=== PATIENT | female | born 1955 | race Caucasian/White ===

== ENCOUNTER 2016-11-12 16:38 | Inpatient (IN) | payer MEDICAID ==
[~2016-11-12] VITALS: Ht 154.9 cm; Wt 81.4 kg
[~2016-11-12 16:38] MED LIST: ABILIFY10 MG PO; ABILIFY15 MG PO; ABILIFY5 MG PO; AMBIEN5 MG PO; AMMONIUM LACTA237 ML TP; ARTHRITIS PAI42.5 GM TP; ASPIRIN81 M1 PO; ATIVAN1 MG PO; AUGMENTIN 875875 MG PO; BACTRIM DS 8001 TA1 PO; BENADRYL25 M1 PO; BUMETANIDE2 MG PO; CARAFATE1 G1 PO; CHANTIX1 MG PO; CHOLESTYRAM4 GM/9 GM PO; CHOLESTYRAMINE PO; CIPRO250 MG PO; CIPRO500 MG PO; CIPROFLOXACIN500 MG PO; CITALOPRAM40 MG PO; CLINDAMYCIN HC300 MG PO; COREG25 MG PO; D-1000 185 MG-11 TAB PO; DIFLUCAN150 MG PO; DOXYCYCLINE100 MG PO; E-400400 IU PO; ELAVIL100 MG PO; GABAPENTIN600 MG; GABAPENTIN800 MG PO; GEMFIBROZIL600 MG PO; HUMALOG 751 UNIT/0.0; HUMALOG 751 UNIT/0.0 SC; HUMALOG MI100 UNIT/1 SC; HUMALOG MI100 UNIT/1 SQ; HUMALOG MIX 50/10 ML; HUMALOG MIX75/253 M1 SC; HUMULIN R100 U/ML; HUMULIN R100 U/ML SC; HYDROCODONE BIT1 T11 PO; HYDROXYZINE PAM50 MG PO; IMDUR30 MG PO; IMDUR60 MG PO; INSULIN-HUMA100 U/ML SC; KEFLEX500 MG PO; LASIX40 MG PO; LEVAQUIN750 M1 PO; LISINOPRIL10 MG PO; LISINOPRIL5 MG PO; LOMOTIL 0.025 M1 TA1 PO; LOPERAMIDE HCL2 MG PO; LOPERAMIDE2 MG PO; LOPID600 M1 PO; LOPID600 MG PO; MASON NATURAL325 MG PO; MINITRAN0.4 MG/HR TD; MIRTAZAPINE45 M1 PO; MIRTAZAPINE45 MG PO; MOTRIN800 MG; NATURAL E400 IU PO; NEURONTIN800 MG PO; NITRO TRANS0.4 MG/HR TD; NITRO-DUR0.4 MG/HR TD; NORCO 325 MG-51 TAB PO; NORCO 5-325 TA1 EACH PO; NORCO 7.5-3251 EACH PO; NOVOLIN 701 UNIT/0.0 SC; NOVOLIN R100 U/ML SC; NOVOLOG100 U/ML SC; Nystatin Ointme30 GM T; OMEPRAZOLE40 MG PO; OXYGEN NAS; PARAFON FORTE500 MG PO; PERCOCET 325 MG1 TA2 PO; PLAVIX75 M1 PO; PLAVIX75 MG PO; PREDNISONE10 MG PO; PREDNISONE20 M1 PO; PRILOSEC40 M1 PO; PROAIR HFA0.09 MG/AC INH; REMERON SOLTAB45 MG PO; REMERON30 M1 PO; REMERON30 MG PO; REMERON45 M1 PO; REMERON45 MG PO; REQUIP2 M2 PO; REQUIP5 MG PO; ROPINIROLE HYD0.5 MG PO; SPIRIVA -- 3018 MCG PO; SPIRIVA18 MCG PO; SYMBICORT1 AE1 INH; TRAMADOL HCL50 MG PO; TRAMADOL HYDRO100 MG PO; ULTRAM100 MG PO; ULTRAM50 MG PO; VANCOMYCIN HYDRO1 GM IV; VIBRAMYCIN100 MG PO; VICODIN 5/500 505 MG PO; VICODIN 500 MG-1 TAB PO; VICODIN ES 7501 TAB PO; VITAMIN B1225 MCG PO; VITAMIN B122500 MC1 PO; VITAMIN B122500 MCG SL; VITAMIN D1000 IU PO; VITAMIN D2000 IU PO; VITAMIN D32000 I1 PO; VITAMIN D34000 UNIT PO; VITAMIN D400 I1 PO; XANAX1 MG PO; ZANTAC 150150 MG PO; ZANTAC 7575 M1 PO; ZANTAC150 MG PO; ZITHROMAX250 MG PO; ZITHROMAX500 MG PO; ZOFRAN ODT4 MG PO; ZOFRAN ODT4 MG SL; ZOSYN 4/0.5 44.5 GM IV; [UNRECOGNIZED DRUG - CODE] MM; [UNRECOGNIZED DRUG - OTHER] PO
[2016-11-12 16:44] VITALS: BP 128/44
[2016-11-12] MEDS ORDERED: IRON325 M2 PO (16:49)
[2016-11-12] MEDS ORDERED: MUCINEX DM 30 M1 TE1 PO (16:50)
[2016-11-12 17:33] LABS: BASO % 0.4 % (0.0-1.0); EOS # 0.1 10*3/uL (0.0-0.4); EOS % 1.5 % (1.0-4.0); HEMATOCRIT 27.7 % (37.0-47.0); HEMOGLOBIN 8.8 g/dl (12.0-16.0); IG # 0.1 10*3/uL (0.0-0.1); LYMPH % 23.9 % (27.0-41.0); MEAN CELL VOLUME 82.4 fl (81.0-99.0); MEAN CORPUSCULAR HGB 26.2 pg (27.0-31.0); MEAN CORPUSCULAR HGB CONC 31.8 g/dl (33.0-37.0); MEAN PLATELET VOLUME 9.7 fl (9.6-12.3); MONO # 0.9 10*3/uL (0.1-1.0); MONO % 10.6 % (3.0-9.0); NEUT # 5.2 10*3/uL (2.3-7.9); NEUT % 62.1 % (47.0-73.0); PLATELET COUNT AUTOMATED 206 10*3/uL (130-400); RED BLOOD COUNT 3.36 10*6/uL (4.10-5.10); RED CELL DISTRI WIDTH 13.6 % (0-14.5); WHITE BLOOD COUNT 8.4 10*3/uL (4.8-10.8)
[2016-11-12 17:49] LABS: ALBUMIN 3.1 gm/dl (3.1-4.5); BILIRUBIN, TOTAL 0.2 mg/dl (0.2-1.0); POTASSIUM 4.6 mmol/L (3.5-5.1)
[2016-11-12 18:27] LABS: BILIRUBIN NEGATIVE (NEGATIVE); BLOOD NEGATIVE (NEGATIVE); CLARITY SL CLOUDY (CLEAR); COLOR YELLOW (YELLOW); GLUCOSE NEGATIVE (NEGATIVE); KETONE NEGATIVE (NEGATIVE); LEUKO ESTERASE TRACE (NEGATIVE); NITRITE NEGATIVE (NEGATIVE); PH 5.5 (5.0-9.0); PROTEIN NEGATIVE (NEGATIVE); UROBILINOGEN 0.2 E.U./dl (0.2-1.0)
[2016-11-12 18:38] LABS: BACTERIA 1+; EPITHELIAL CELLS 0-2; RBC 0-2 rbc/hpf (0-2)
[2016-11-12 20:15] VITALS: BP 134/37
[2016-11-12] MEDS ORDERED: ROPINIROLE HYDRO1 MG PO (21:08)
[2016-11-13] VITALS (12 sets, daily range): BP systolic 115–153; BP diastolic 38–58
[2016-11-13 06:29] LABS: BASO % 0.3 % (0.0-1.0); EOS # 0.2 10*3/uL (0.0-0.4); HEMATOCRIT 24.7 % (37.0-47.0); HEMOGLOBIN 7.9 g/dl (12.0-16.0); IG # 0.1 10*3/uL (0.0-0.1); LYMPH # 2.4 10*3/uL (1.3-4.4); LYMPH % 32.5 % (27.0-41.0); MEAN CELL VOLUME 81.8 fl (81.0-99.0); MEAN CORPUSCULAR HGB 26.2 pg (27.0-31.0); MEAN PLATELET VOLUME 10.2 fl (9.6-12.3); MONO # 0.9 10*3/uL (0.1-1.0); MONO % 12.3 % (3.0-9.0); NEUT # 3.8 10*3/uL (2.3-7.9); NEUT % 51.4 % (47.0-73.0); PLATELET COUNT AUTOMATED 188 10*3/uL (130-400); RED BLOOD COUNT 3.02 10*6/uL (4.10-5.10); RED CELL DISTRI WIDTH 13.6 % (0-14.5); WHITE BLOOD COUNT 7.5 10*3/uL (4.8-10.8)
[2016-11-13 06:40] LABS: ALBUMIN 2.8 gm/dl (3.1-4.5); BILIRUBIN, TOTAL 0.2 mg/dl (0.2-1.0); POTASSIUM 4.3 mmol/L (3.5-5.1); TOTAL PROTEIN 6.3 gm/dL (6.4-8.2)
[2016-11-13 06:49] LABS: MAGNESIUM 2.1 mg/dL (1.5-2.1); THYROID STIM HORMONE (HS) 3.46 uIU/ml (0.358-4.75)
[2016-11-13 07:22] LABS: HEMOGLOBIN A1c 6.7 % (4.8-5.6)
[2016-11-13 08:45] LABS: FOLIC ACID 9.7 ng/mL (>5.38)
[2016-11-14] VITALS: BP 139/50
[2016-11-14 08:00] VITALS: BP 144/46
[2016-11-14 11:23] LABS: BASO % 0.2 % (0.0-1.0); EOS # 0.1 10*3/uL (0.0-0.4); EOS % 2.3 % (1.0-4.0); IG # 0.1 10*3/uL (0.0-0.1); LYMPH # 1.8 10*3/uL (1.3-4.4); MEAN CELL VOLUME 81.7 fl (81.0-99.0); MEAN CORPUSCULAR HGB 26.2 pg (27.0-31.0); MEAN CORPUSCULAR HGB CONC 32.1 g/dl (33.0-37.0); MONO # 0.9 10*3/uL (0.1-1.0); MONO % 15.7 % (3.0-9.0); NEUT % 50.6 % (47.0-73.0); PLATELET COUNT AUTOMATED 144 10*3/uL (130-400); RED BLOOD COUNT 4.04 10*6/uL (4.10-5.10); RED CELL DISTRI WIDTH 15.1 % (0-14.5)
[2016-11-14 11:25] LABS: HEMOGLOBIN 10.6 g/dl (12.0-16.0)
[2016-11-14 11:37] LABS: ALKALINE PHOSPHATASE 77 U/L (45-117); BILIRUBIN, TOTAL 0.4 mg/dl (0.2-1.0); CARBON DIOXIDE 25 mmol/L (21-32); CHLORIDE 106 mmol/L (98-107); EST GLOM FILT AFRICAN AMERICAN > 60 ml/min; GLUCOSE 223 mg/dL (65-99); POTASSIUM 4.5 mmol/L (3.5-5.1); SGOT/AST 28 IU/L (3-35); SGPT/ALT 15 U/L (12-78); SODIUM 138 mmol/L (136-145); TOTAL PROTEIN 7.1 gm/dL (6.4-8.2)
[2016-11-14 11:40] LABS: BUN 39 mg/dl (7-24)
[2016-11-14 12:00] VITALS: BP 126/70
[2016-11-14] MEDS ORDERED: PANTOPRAZOLE SO40 MG PO (14:49)
[2016-11-14 16:00] VITALS: BP 112/54
[2016-11-14 18:00] VITALS: BP 112/54
== END 2016-11-14 18:19 | disposition home health service (06) | DRG 302 ==
LOC: ED 16:38 → EDHOLD 19:19 → 5E 19:19
PROVIDERS: Hospitalist; Nurse Practitioner Family
PROC: 30233N1 Transfusion of Nonautologous Red Blood Cells into Peripheral Vein, Percutaneous Approach (ICD-10-PCS; principal; 2016-11-13)
DX: I25.10 Atherosclerotic heart disease of native coronary artery without angina pectoris (principal); N17.0 Acute kidney failure with tubular necrosis; E44.0 Moderate protein-calorie malnutrition; J96.10 Chronic respiratory failure, unspecified whether with hypoxia or hypercapnia; I50.22 Chronic systolic (congestive) heart failure; I13.0 Hypertensive heart and chronic kidney disease with heart failure and stage 1 through stage 4 chronic kidney disease, or unspecified chronic kidney disease; E86.0 Dehydration; J44.9 Chronic obstructive pulmonary disease, unspecified; E78.2 Mixed hyperlipidemia; M54.30 Sciatica, unspecified side; F03.90 Unspecified dementia, unspecified severity, without behavioral disturbance, psychotic disturbance, mood disturbance, and anxiety; E11.65 Type 2 diabetes mellitus with hyperglycemia; E11.22 Type 2 diabetes mellitus with diabetic chronic kidney disease; G89.29 Other chronic pain; M54.5 Low back pain; B19.20 Unspecified viral hepatitis C without hepatic coma; N18.3 Chronic kidney disease, stage 3 (moderate); I73.9 Peripheral vascular disease, unspecified; Z87.891 Personal history of nicotine dependence; Z79.4 Long term (current) use of insulin; Z95.810 Presence of automatic (implantable) cardiac defibrillator; Z90.710 Acquired absence of both cervix and uterus; Z95.1 Presence of aortocoronary bypass graft; I25.2 Old myocardial infarction; Z82.49 Family history of ischemic heart disease and other diseases of the circulatory system; Z80.1 Family history of malignant neoplasm of trachea, bronchus and lung; Z79.82 Long term (current) use of aspirin; Z79.899 Other long term (current) drug therapy; Z99.81 Dependence on supplemental oxygen; Z68.32 Body mass index [BMI] 32.0-32.9, adult; D63.8 Anemia in other chronic diseases classified elsewhere

== ENCOUNTER 2017-01-16 16:51 | Inpatient (IN) | payer MEDICAID ==
[~2017-01-16] VITALS: Ht 154.9 cm; Wt 84.8 kg
--- NOTE | ~2017-01-16 | CON ---
[place], [place] REPORT OF CONSULTATION NAME: CHRISTIAN HELLER UNIT #: [id number] ROOM: 531 DOCTOR: NANCY GUZMAN MDCALVINDAMIAN BIRTHDATE: [birth year] DOS: HISTORY OF PRESENT ILLNESS: A 61-year-old patient who has presented with chief complaint of blood in stool, severe anemia, hemoglobin and hematocrit of 6 and 21, on aspirin and Plavix. There is concern about her status of guaiac positivity and bleeding. Transfusion in progress. BUN and creatinine 45 and 1.46, GFR of 45. Electrolytes have been addressed, borderline normality, bilirubin 0.6, lipase normal. BNP of 1300 plus on . Her INR 1.0. Chest x-ray, borderline or mild cardiomegaly, slight increase in central pulmonary vascularity, does not appear to be secondary to fluid overload, electrolytes balanced. CT scan of the abdomen and pelvis, no acute inflammatory process or bowel obstruction; however, bibasilar infiltrate, has been in the patchy form identified. Troponin was 0.153. Troponin 0.130 repeatedly was noticed. Hemoglobin A1c of 6.1. Her transfusion actively in progress. H and H again 6 and 22. Guaiac positive. PAST MEDICAL HISTORY: Associated cardiomyopathy, severe anemia, coronary artery disease, type 2 diabetes mellitus, hypertension, dementia, and peripheral vascular disease. PAST SURGICAL HISTORY: Left carotid endarterectomy, CABG, cardiac defibrillator, AICD, fem-pop bypass, and hysterectomy. SOCIAL HISTORY: Nonsmoker, nonalcohol consumer. ALLERGIES: To no known medications. MEDICATIONS: Medication list has been reviewed. REVIEW OF SYSTEMS: HEENT: Denies double vision, blurred vision. RESPIRATORY: Denies acute shortness of breath. CARDIOVASCULAR: Denies acute chest pain. DIGESTIVE SYSTEM: No hematemesis, no hematochezia, however, guaiac positive. PHYSICAL EXAMINATION: VITAL SIGNS: Stable. HEENT: Head normocephalic, nontraumatic. Mouth and buccal mucosa benign. NECK: Supple, no thyromegaly. CHEST: Symmetric anatomy, equal expansion. A few bibasilar rhonchi. HEART: Normal sinus rhythm, no gallop, no murmur. ABDOMEN: Soft. No hepato-organomegaly. Bowel sounds present. No pulsatile mass. Obesity was noticed. EXTREMITIES: No cyanosis, no pedal edema. NEUROLOGIC: Alert, oriented to time, place, person. Sensory, motor intact. Cranial nerves 2-12 intact. IMPRESSION: Severe anemia of hemoglobin of 6, guaiac positivity, undergoing transfusion, slight elevation of troponin and BNP of 1300. Chest x-ray with patchy infiltration in the bibasilar lung. [place], [place] REPORT OF CONSULTATION NAME: CHRISTIAN HELLER UNIT #: [id number] ROOM: 531 DOCTOR: CHRISTO GUZMAN MD BIRTHDATE: [birth year] PLAN AND DISCUSSION: This patient requires endoscopic evaluation of upper gastrointestinal tract. She does not need a colonoscopy. She has had hemorrhagic gastritis in the past and I remain concerned about her source of bleeding. Her colonoscopy was in 2016 with piecemeal polypectomy and therefore I am not acutely concerned or worried about the colon. CHRISTO GUZMAN MD CM:CONSTR:REPORT OF CONSULTATION 1637 01/18/17 0008 interface
--- NOTE | ~2017-01-16 | PR ---
[place], [place] PROGRESS NOTE NAME: CHRISTIAN HELLER UNIT #: [id number] ROOM: 531 DOCTOR: IBAN GUZMAN MD BIRTHDATE: [birth year] DOS: 01/18/2017 SUBJECTIVE: Her breathing is better, and she has gone for EGD today. Her urine culture and sensitivity grew heavy growth of Gram-negative bacteria. Her CBC showed white count of 9600, hemoglobin 9.6 and hematocrit 29.3. Her blood sugar today is 297, BUN 43 and creatinine is 1.29. GFR is 42 indicating chronic renal failure, and her troponin level is normal. The patient is seen by Dr. Sharma, who has taken her for EGD. OBJECTIVE: VITAL SIGNS: Her blood pressure is 139/57, pulse is 70, respirations 18 and temperature 98.2. CHEST: Having occasional rhonchi. No crepitation. HEART: Regular. ABDOMEN: Soft. IBAN GUZMAN MD CM:PNTRANS 1002 00 IBAN GUZMAN MD 01/18/171900 interface
--- NOTE | ~2017-01-16 | CON ---
[place], [place] REPORT OF CONSULTATION NAME: CHRISTIAN HELLER UNIT #: [id number] ROOM: 531 DOCTOR: KANG LYNN MD BIRTHDATE: [birth year] DOS: 01/18/2017 HISTORY OF PRESENT ILLNESS: This is a 61-year-old -[place] woman with a history of coronary artery disease, coronary artery bypass graft surgery and also cardiomyopathy and her EF has been about 40-45% over the last few years. She had an AICD implanted, which got infected couple of times and now has one in the right anterior chest and I think she is in a unipolar pacing mode. She has COPD, but no longer smokes, also has stage 3 kidney disease, chronic respiratory problems, hyperlipidemia, essential hypertension, PAD, for which she had stents deployed last September and has been on Plavix every day since along with aspirin and she had femoral popliteal bypass, left carotid endarterectomy and hysterectomy. She came to the Emergency Department and was admitted because of generalized weakness. She had very little energy, no chest pain; however, she had no tachypnea. She does walk in the house, but not much and has slowed down over the years. She had noticed some blood in the stool, but had not had a bowel movement for a while. She was found to be severely anemic and had a couple units of packed RBCs which raised her hemoglobin and Dr. Sharma did an endoscope on her today and found gastritis and hiatus hernia and some degraded blood in the stomach. Her medications were noted and the list is fairly large. PHYSICAL EXAMINATION: GENERAL: This patient who is alert, oriented. She does not look anemic now, is not diaphoretic. No finger clubbing. VITAL SIGNS: Pulse is 80 and regular, blood pressure 153/71. NECK: Normal JVP, no murmurs. LUNGS: Clear to auscultation. HEART: There is no edema at all in the lower extremities. IMPRESSION: This patient with this coronary artery disease status post coronary artery bypass grafting, has mild to moderate ischemic cardiomyopathy which is well compensated. She does not have any symptoms of coronary artery disease. Severe anemia from GI bleed, which is being addressed by Dr. Sharma. RECOMMENDATIONS: Plavix and aspirin can be held as necessary. I would probably not use these drugs for at least 10 days or so or longer if Dr. Sharma feels that way. I thank you for this consult. [place], [place] REPORT OF CONSULTATION NAME: CHRISTIAN HELLER UNIT #: [id number] ROOM: 531 DOCTOR: KANG LYNN MD BIRTHDATE: [birth year] KANG LYNN MD CM:CONSTR:REPORT OF CONSULTATION 1134 01/19/17 0025 interface
--- NOTE | ~2017-01-16 | PR ---
[place], [place] PROGRESS NOTE NAME: CHRISTIAN HELLER UNIT #: [id number] ROOM: 531 DOCTOR: IBAN GUZMAN MD BIRTHDATE: [birth year] DOS: 01/17/2017 SUBJECTIVE: The patient has been admitted to the hospital from Emergency Department with congestive heart failure, anemia, positive occult blood, diabetes mellitus, history of renal failure, chronic anemia, systolic congestive heart failure, congestive heart failure chronically, CAD, COPD, hyperlipidemia, sciatica, dementia, type 2 diabetes, chronic low pain, hepatitis C. CBC in the Emergency showed white count 7700, hemoglobin 6.8, hematocrit 21.7. Patient received 1 unit of packed cells in the Emergency and she is getting the second unit right now. Her comprehensive profile showed glucose 225, BUN 45, creatinine 1.46, GFR 37, sodium 133, chloride 97, calcium 8.4, albumin 2.9, and proBNP is ____. Pro time is 10.1. Chest x-ray is borderline or mild cardiomegaly with slight increase in the central pulmonary vasculature. CT of the abdomen shows no acute inflammatory process or bowel obstruction. Troponin level is 0.153. Hepatitis C 6.1. Vitamin B12 is 281, folic acid 10.84. Vitamin D 35.4. All values are normal. OBJECTIVE: VITAL SIGNS: Her blood pressure is 128/56, pulse 56, respirations 18, temperature 98. HEART: Regular. CHEST: ____ rhonchi with crepitation. ABDOMEN: Soft. Liver and spleen not palpable. No area of tenderness. No mass palpable. EXTREMITIES: No edema of leg. The patient is feeling better as she is getting some oxygen and improving slowly. The patient will be put on medicine famotidine 20 mg daily, bumetanide 1 mg daily, ferrous sulfate 325 mg daily, vitamin D 4000 units daily, nitroglycerin 0.5 mg daily, gemfibrozil 600 mg twice daily, clopidogrel hydrogen 75 mg daily, lisinopril 5 mg daily, insulin 70/30, 60 units twice daily, gabapentin 600 mg twice daily, carvedilol 25 mg twice daily, heparin subcutaneous ____ every 12 hours aerosol treatment with albuterol. [place], [place] PROGRESS NOTE NAME: CHRISTIAN HELLER UNIT #: [id number] ROOM: 531 DOCTOR: IBAN GUZMAN MD BIRTHDATE: [birth year] IBAN GUZMAN MD CM:PNTRANS 1132 [id number] IBAN GUZMAN MD 01/17/17 1220 interface
--- NOTE | ~2017-01-16 | DS ---
[place], [place] DISCHARGE SUMMARY [id number] UN[facility] #: [id number] ROOM: 531 DOCTOR: LAURA MYERS MD BIRTHDATE: [birth year] DOS: 01/19/2017 REASON FOR ADMISSION: Shortness of breath, hypoxemia, oxygen saturation 89% on 3 liters and the patient had gained 13 pounds. COURSE IN THE HOSPITAL: The patient was admitted to the hospital and the patient's chest x-ray showed borderline mild cardiomegaly with slight increase in central pulmonary vascularity. The patient does not appear to have overt edema or definite lung consolidation. Urinalysis showed urinary tract infection and then CT of the abdomen and pelvis was done, which showed no acute inflammatory process or bowel obstruction. Her WBC count was 7.9, hemoglobin was 6.9. The patient had high reticulocyte count. Her troponin was 0.161. Cardiology was consulted. Hemoglobin A1c was 6.1. Then, BUN was 42, creatinine 1.7. B12 was 281, folic acid 10.84, vitamin D 35.4. Repeat troponin was 0.130. The patient was seen by Dr. Sharma, 2 units of blood transfusion were given. Dr. Sharma did not want to do colonoscopy and he wanted to do EGD. EGD showed upper GI bleed with superficial hemorrhagic gastritis in the proximal stomach, small hiatal hernia and gastritis. Fecal occult blood was also positive. Dr. Russell also saw the patient and he had recommended to hold aspirin and Plavix as necessary, but Dr. Sharma wanted her to continue aspirin 81 mg daily but with food. Urine culture is growing E. coli, which is sensitive to Cipro. LABORATORY DATA: Her hemoglobin is 10.2. Her BUN is 46, creatinine 1.43, sodium 130, potassium 4.2, chloride is 91. DISCHARGE DIAGNOSES: 1. Upper gastrointestinal bleed secondary to gastritis secondary to aspirin and Plavix. Aspirin will be continued at this point and we will monitor her hemoglobin. Dr. Russell though was okay with holding aspirin and Plavix for 10 days. 2. Hyponatremia, possibly due to underlying diuresis and possibly also from hyperglycemia. Her blood sugar was 400. 3. Prerenal azotemia secondary to gastrointestinal bleed. 4. Chronic kidney disease stage 3. 5. Elevated troponin, could also be from the underlying kidney disease. The patient could have demand ischemia as well. 6. The patient has coronary artery disease status post defibrillator and pacemaker in 2007. She had catheterization done in July 2015. Ejection fraction was 45%. Then, she has systolic as well as diastolic heart failure. 7. Type 2 diabetes, target hemoglobin A1c 7-8. 8. Hypertension and hyperlipidemia. 9. Chronic obstructive pulmonary disease stage 4, on home oxygen. 10. Depression and anxiety. 11. Irritable bowel syndrome, diarrhea predominant. 12. Overactive bladder and urinary incontinence. 13. Peripheral vascular disease and she had aortofemoral bypass of left side. 14. Vitamin D and vitamin B12 deficiency. 15. Migraine headaches. 16. Proteinuria (diabetic nephropathy). 17. Mild obstructive sleep apnea. [place], [place] DISCHARGE SUMMARY NAME: CHRISTIAN HELLER UNIT #: [id number] ROOM: 531 DOCTOR: LAURA MYERS MD BIRTHDATE: [birth year] 18. Left-sided drop foot after graft was taken out by Dr. Bustamante. There is no feeling in the front of the left foot. Both legs go numb after she walks, now cannot walk much. She walks at home with walker. She has axonal neuropathy of both lower extremities. 19. 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 PAST SURGICAL HISTORY: Breast surgeries, cyst removed in 2013, colonoscopy and cholecystectomy, then peripheral vascular disease. DISCHARGE MEDICATIONS: Medications at the time of discharge are sucralfate 1 gram before meals and at bedtime, famotidine 20 mg daily, Bumex 1 mg daily, ferrous sulfate 325 mg daily, vitamin D 4000 International Units q.a.m., aripiprazole (Abilify) 15 mg daily, nitroglycerin 0.4 mg daily, gemfibrozil 600 mg b.i.d., Plavix 75 mg daily (the patient can hold it for 7 days), lisinopril 5 mg daily, Protonix 40 mg daily, gabapentin 600 mg b.i.d., Humulin 70/30 mix 60 units b.i.d., insulin Humalog sliding scale, Requip 1 mg b.i.d., mirtazapine 45 mg at bedtime, Parafon (chlorzoxazone) 500 mg 3 times a day, Coreg 25 mg b.i.d., guaifenesin 600 mg q.12 hours, methylprednisolone will be stopped, Levaquin 750 premix every 48 hours, the patient can take for 2 more days, it is to be stopped on 01/23/2017. CONDITION OF PATIENT ON DISCHARGE: Fair. The patient is feeling much better. She has lost about 7 pounds while in the hospital. The patient will follow up in office on Thursday. We will check her weight again and may do a repeat CBC also. LAURA MYERS MD CM:D[place]TON [id number] LAURA MYERS MD 01/20/17 0236 interface
--- NOTE | ~2017-01-16 | WRIGHTHP ---
[place], [place] PATIENT HISTORY AND PHYSICAL EXAM [id number] UNIT #: [id number] ROOM: 531 DOCTOR: LAURA MYERS MD BIRTHDATE: [birth year] DOS: 01/16/2017 The patient is being admitted from the office. CHIEF COMPLAINT: Shortness of breath and hypoxemia, her oxygen saturation was 89% on 3 liters and she is also having pedal edema and gained about 13 pounds of weight. HISTORY OF PRESENTING ILLNESS: The patient has been slowly gaining weight. Her target weight is 178 pounds, her weight today was 192 pounds, so she is about 14 pounds excess weight. The patient is also wheezing and has chest congestion. The patient at this time is being sent to hospital for IV diuretic therapy. The patient has also developed 3 to 4+ pedal edema. PAST MEDICAL HISTORY: Significant for: 1. Hepatitis C genotype 2 (treated). 2. CAD, status post defibrillator and pacemaker in 2007, was removed from left and put on the right side. She had cath done in July 2015, ejection fraction was 45%. Echo was done at that time as well. 3. Systolic congestive heart failure. Her ejection fraction was 32% in 2012, which improved with pacemaker later. 4. Type 2 diabetes, insulin requiring, target hemoglobin A1c 7-8. 5. Hypertension and hyperlipidemia. 6. COPD stage 4, on home oxygen. 7. Depression and anxiety. 8. Irritable bowel syndrome-diarrhea predominant. 9. Overactive bladder and urine incontinence. 10. Peripheral vascular disease. 11. She had aortofemoral bypass, left side. 12. Vitamin D deficiency. 13. Vitamin B12 deficiency. 14. Migraine headaches. 15. Proteinuria. 16. Mild obstructive sleep apnea. 17. Left-sided drop foot after graft was taken out by Dr. Keyonna Bustamante. There is no feeling in the front of the left leg, both leg goes numb after she walks and now cannot walk much. She walks with walker at home. She has axonal neuropathy of both lower extremities. 18. 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 PAST SURGICAL HISTORY: Breast surgeries, cyst removed in 2013 and colonoscopy, cholecystectomy, and left peripheral vascular disease surgery. FAMILY HISTORY: Father , had heart disease. Mother , diagnosis cancer. She has 1 brother and 5 sisters. She has 2 sons and 1 daughter, they are all healthy. SOCIAL HISTORY: She is a former smoker, does not smoke. No alcohol, no illicit drug use. [place], [place] PATIENT HISTORY AND PHYSICAL EXAM NAME: CHRISTIAN HELLER UNIT #: [id number] ROOM: 531 DOCTOR: LAURA MYERS MD BIRTHDATE: [birth year] DRUG ALLERGIES: PENICILLIN. MEDICATIONS: 1. Hydrocodone/acetaminophen 7.5-325 mg tablet t.i.d. 2. Ferrous sulfate 325 mg daily. 3. Hydroxyzine 25 mg three times a day. 4. Vitamin D 2,000 units daily. 5. Remeron 30 mg daily. 7. Coreg 25 mg twice a day. 8. Spiriva one inhalation daily. 9. Abilify 15 mg daily. 10. Humalog mix 75/25 is 60 units twice a day. 11. Requip 1 mg twice a day. 12. Plavix 75 mg daily. 13. Symbicort 160/4.5 one inhalation twice a day. 14. Nitroglycerin 0.4 mg q. 24 hours. 15. Lisinopril 5 mg daily. 16. ProAir 2 puffs q.6 hours p.r.n. 17. Bumex 2 mg daily. 18. Aspirin 81 mg daily. 19. Lopid 600 mg twice daily. 20. Gabapentin 800 mg 3 times a day. REVIEW OF SYSTEMS: As in the history of presenting illness. Positive for dizziness and leg edema, shortness of breath. She has cough and dyspnea on exertion. She has baseline depression. Otherwise, 10-point review of systems is negative. PHYSICAL EXAMINATION: VITAL SIGNS: Temperature 97 degree Fahrenheit, heart rate is 75, blood pressure 110/62, weight is 192 pounds. BMI is 36.27, oxygen saturation 99% on 3 liters. GENERAL: The patient appears to be in mild distress. She is well developed, well nourished. She appears to have shortness of breath. HEENT: Head is normocephalic, atraumatic. Pupils are equal, round, reactive to light. Extraocular movements intact. Ear, nose and throat, no discharge noted. NECK: No JVD, no lymphadenopathy, no thyromegaly. CHEST: She has scar from carotid endarterectomy left side. SKIN: No lesions. HEART: S1, S2 regular rate and rhythm. EKG shows spaced rhythm. LUNGS: Decreased breath sounds bilaterally. She has scattered wheezing, possibly crackles. ABDOMEN: Soft, no guarding, no rigidity. EXTREMITIES: 3 to 4+ pedal edema noted. NEUROLOGIC: No focal deficits. ASSESSMENT: At this point is: 1. Combined systolic and diastolic congestive heart failure. IV diuresis will be done. The patient is on mario inhibitor, nitroglycerin, and Bumex and Coreg. 2. Chronic obstructive pulmonary disease exacerbation. We will start the [place], [place] PATIENT HISTORY AND PHYSICAL EXAM NAME: CHRISTIAN HELLER UNIT #: [id number] ROOM: 531 DOCTOR: LAURA MYERS MD BIRTHDATE: [birth year] patient on Z-Britton and DuoNeb breathing treatment. LAURA MYERS MD CM:HISPHYS:PATIENT HISTORY AND PHYSICAL EXAMINATION 1636 [id number] LAURA MYERS MD 01/19/17 1240 interface
--- NOTE | ~2017-01-16 | PR ---
[place], [place] PROGRESS NOTE NAME: CHRISTIAN HELLER UNIT #: [id number] ROOM: 531 DOCTOR: KANG LYNN MD BIRTHDATE: [birth year] DOS: 01/19/2017 SUBJECTIVE: She feels a lot better, more energy and much more comfortable. No chest pain, palpitation or breathing difficulty and has not had any swelling in the legs. Her appetite is fine. OBJECTIVE: VITAL SIGNS: Pulse is 70 and regular, blood pressure 170/73. Blood pressure was somewhat lower. LABORATORY DATA: Hemoglobin is 9.6 g/dL. IMPRESSION: 1. Coronary artery disease, she is status post remote coronary artery bypass grafting, she is stable. 2. Cardiomyopathy, ejection fraction has been around 40%-45% for a long time. There is no evidence of cardiac decompensation at this time. 3. Hypertension. Blood pressure needs to be better controlled the beta karla or lisinopril can be increased when the blood pressure below 130 mmHg. KANG LYNN MD CM:PNTRANS 1238 1504 KANG LYNN MD 01/19/17 1505 interface
--- NOTE | ~2017-01-16 | O ---
[place], [place] OPERATIVE NOTE NAME: CHRISTIAN HELLER UNIT #: [id number] ROOM: 531 DOCTOR: CHRISTO GUZMAN MD BIRTHDATE: [birth year] DOS: GASTROENDOSCOPIC REPORT HISTORY OF PRESENT ILLNESS: A 61-year-old patient who was presented with chief complaint of GI bleed, drop in H and H, status post multi transfusion. The patient on aspirin and Plavix product. The patient has been stabilized for an endoscopy today. PROCEDURE: Today's procedure part of investigation is panendoscopy plus biopsy and photographic series. PREMEDICATION: Versed and Diprivan. SCOPE: Olympus forward-viewing gastroscope Q10 video. REPORT: After putting the patient in the left lateral position and after application of lubricant to the scope, the scope was introduced. Thereafter, under direct visualization, I advanced through the length of the esophagus without difficulty. Small hiatal hernia was noticed. Gastric pouch was entered. Bile reflux gastritis seen. Presence of degraded blood in the gastric pouch was identified, photographed this signifying blood loss from upper GI tract. Duodenal bulb, second and third part within normal limits. Gastritis seen. Antrum was biopsied. GI reflection of the scope reveals cardia to be benign. Mild hemorrhagic gastritis in proximal stomach noticed. The patient was extubated, tolerated procedure well. IMPRESSION: Upper gastrointestinal bleed with superficial hemorrhagic gastritis proximal stomach, small hiatal hernia, gastritis. PLAN AND DISCUSSION: While she is inpatient I am going to use Carafate 1 g q.6 hours and she should take her PPI therapy, Protonix 40 mg daily. She should avoid aspirin on full stomach and due to her cardiovascular issues she needs to be back on Plavix and aspirin. As far as diet is concerned soft diet is going to be implemented. Thank you very much indeed. IMPRESSION: Superficial hemorrhagic proximal gastritis with presence of degraded blood in the gastric pouch and bile reflux. In summary, upper GI is the cause of blood loss anemia. Anemia, hemoglobin of 6 and hematocrit of 21, status post 20 transfusions to 9 and 29. [place], [place] OPERATIVE NOTE NAME: CHRISTIAN HELLER UNIT #: [id number] ROOM: 531 DOCTOR: CHRISTO GUZMAN MD BIRTHDATE: [birth year] CHRISTO GUZMAN MD CM:CARMELITA:OPERATIVE NOTE [id number] CHRISTO GUZMAN MD 01/18/17 1124 interface
[~2017-01-16 16:51] MED LIST changes: +IRON325 M2 PO; +MUCINEX DM 30 M1 TE1 PO; +PANTOPRAZOLE SO40 MG PO; +ROPINIROLE HYDRO1 MG PO
[2017-01-16] MEDS ORDERED: ALBUTEROL SULF0.5 M1 INH (17:28)
[2017-01-16 17:40] LABS: BASO % 0.1 % (0.0-1.0); EOS # 0.2 10*3/uL (0.0-0.4); EOS % 2.7 % (1.0-4.0); HEMATOCRIT 21.7 % (37.0-47.0); HEMOGLOBIN 6.8 g/dl (12.0-16.0); IG # 0.2 10*3/uL (0.0-0.1); LYMPH # 1.4 10*3/uL (1.3-4.4); LYMPH % 18.5 % (27.0-41.0); MEAN CELL VOLUME 87.9 fl (81.0-99.0); MEAN CORPUSCULAR HGB 27.5 pg (27.0-31.0); MEAN CORPUSCULAR HGB CONC 31.3 g/dl (33.0-37.0); MONO # 0.9 10*3/uL (0.1-1.0); NEUT % 64.7 % (47.0-73.0); NUCLEATED RED BLOOD CELL 0.4 % (0.0-0.0); PLATELET COUNT AUTOMATED 195 10*3/uL (130-400); RED BLOOD COUNT 2.47 10*6/uL (4.10-5.10); RED CELL DISTRI WIDTH 16.6 % (0-14.5); WHITE BLOOD COUNT 7.7 10*3/uL (4.8-10.8)
[2017-01-16 17:59] LABS: ALBUMIN 2.9 gm/dl (3.1-4.5); BILIRUBIN, TOTAL 0.1 mg/dl (0.2-1.0); TOTAL PROTEIN 7.2 gm/dL (6.4-8.2)
[2017-01-16 18:25] LABS: PROTHROMBIN TIME 10.1 SECONDS (9.0-12.4)
[2017-01-16 18:56] LABS: BILIRUBIN NEGATIVE (NEGATIVE); BLOOD TRACE-LYSED (NEGATIVE); CLARITY CLEAR (CLEAR); COLOR YELLOW (YELLOW); GLUCOSE NEGATIVE (NEGATIVE); KETONE NEGATIVE (NEGATIVE); LEUKO ESTERASE 3+ (NEGATIVE); NITRITE NEGATIVE (NEGATIVE); PH 5.5 (5.0-9.0); PROTEIN NEGATIVE (NEGATIVE); UROBILINOGEN 0.2 E.U./dl (0.2-1.0)
[2017-01-16 19:10] LABS: BACTERIA TRACE; URINE REFLEX COMMENT YES (NO); WBC 16-20 wbc/hpf (0-5)
[2017-01-17 06:38] LABS: BASO % 0.1 % (0.0-1.0); EOS % 0.1 % (1.0-4.0); HEMATOCRIT 22.3 % (37.0-47.0); HEMOGLOBIN 6.9 g/dl (12.0-16.0); IG # 0.1 10*3/uL (0.0-0.1); LYMPH # 0.7 10*3/uL (1.3-4.4); LYMPH % 10.2 % (27.0-41.0); MEAN CELL VOLUME 86.8 fl (81.0-99.0); MEAN CORPUSCULAR HGB 26.8 pg (27.0-31.0); MEAN CORPUSCULAR HGB CONC 30.9 g/dl (33.0-37.0); MEAN PLATELET VOLUME 10.3 fl (9.6-12.3); MONO # 0.1 10*3/uL (0.1-1.0); NEUT # 6.2 10*3/uL (2.3-7.9); NEUT % 86.9 % (47.0-73.0); PLATELET COUNT AUTOMATED 205 10*3/uL (130-400); RED BLOOD COUNT 2.57 10*6/uL (4.10-5.10); RED CELL DISTRI WIDTH 16.5 % (0-14.5); RETICULOCYTE % 8.33 % (0.50-2.50); WHITE BLOOD COUNT 7.1 10*3/uL (4.8-10.8)
[2017-01-17 06:42] LABS: IRF 34.1 % (2.4-13.3); RET-He 27.2 pg (32.1-37.9)
[2017-01-17 07:03] LABS: HEMOGLOBIN A1c 6.1 % (4.8-5.6)
[2017-01-17 07:11] LABS: MAGNESIUM 1.9 mg/dL (1.5-2.1); PHOSPHOROUS 3.6 mg/dL (2.5-4.9); POTASSIUM 4.3 mmol/L (3.5-5.1)
[2017-01-17 07:26] LABS: THYROID STIM HORMONE (HS) 2.44 uIU/ml (0.358-4.75)
[2017-01-17 07:31] LABS: VITAMIN D, 25-HYDROXY 35.4 ng/mL (30-100)
[2017-01-17 07:32] LABS: FOLIC ACID 10.84 ng/mL (>5.38)
[2017-01-18 09:09] LABS: IG # 0.1 10*3/uL (0.0-0.1); LYMPH # 0.8 10*3/uL (1.3-4.4); LYMPH % 8.5 % (27.0-41.0); MEAN CORPUSCULAR HGB 27.2 pg (27.0-31.0); MEAN CORPUSCULAR HGB CONC 32.8 g/dl (33.0-37.0); MEAN PLATELET VOLUME 9.7 fl (9.6-12.3); MONO # 0.7 10*3/uL (0.1-1.0); MONO % 7.5 % (3.0-9.0); NEUT % 83.2 % (47.0-73.0); PLATELET COUNT AUTOMATED 221 10*3/uL (130-400); RED BLOOD COUNT 3.53 10*6/uL (4.10-5.10); RED CELL DISTRI WIDTH 16.4 % (0-14.5); WHITE BLOOD COUNT 9.6 10*3/uL (4.8-10.8)
[2017-01-18 09:11] LABS: HEMOGLOBIN 9.6 g/dl (12.0-16.0)
[2017-01-18 09:12] LABS: HEMATOCRIT 29.3 % (37.0-47.0)
[2017-01-18 09:44] LABS: ALBUMIN 3.2 gm/dl (3.1-4.5); BILIRUBIN, TOTAL 0.3 mg/dl (0.2-1.0); POTASSIUM 4.1 mmol/L (3.5-5.1); TOTAL PROTEIN 7.7 gm/dL (6.4-8.2)
[2017-01-19 13:25] LABS: HEMATOCRIT 31.1 % (37.0-47.0); HEMOGLOBIN 10.2 g/dl (12.0-16.0); IG # 0.1 10*3/uL (0.0-0.1); LYMPH # 0.7 10*3/uL (1.3-4.4); LYMPH % 7.3 % (27.0-41.0); MEAN CELL VOLUME 83.4 fl (81.0-99.0); MEAN CORPUSCULAR HGB 27.3 pg (27.0-31.0); MEAN CORPUSCULAR HGB CONC 32.8 g/dl (33.0-37.0); MONO # 0.3 10*3/uL (0.1-1.0); MONO % 3.7 % (3.0-9.0); NEUT # 8.1 10*3/uL (2.3-7.9); NEUT % 88.5 % (47.0-73.0); PLATELET COUNT AUTOMATED 235 10*3/uL (130-400); RED BLOOD COUNT 3.73 10*6/uL (4.10-5.10); RED CELL DISTRI WIDTH 15.7 % (0-14.5); WHITE BLOOD COUNT 9.2 10*3/uL (4.8-10.8)
[2017-01-19 13:36] LABS: POTASSIUM 4.2 mmol/L (3.5-5.1)
[2017-01-19] MEDS ORDERED: LEVAQUIN750 M1 PO (18:03)
== END 2017-01-19 18:23 | disposition home health service (06) | DRG 871 ==
LOC: ED 16:51 → EDHOLD 18:58 → 5E 18:58
PROVIDERS: Family Medicine; Internal Medicine; Nurse Practitioner Family; Student in an Organized Health Care Education/Training Program
PROC: 0DB68ZX Excision of Stomach, Via Natural or Artificial Opening Endoscopic, Diagnostic (ICD-10-PCS; principal; 2017-01-16)
PROC: 30233N1 Transfusion of Nonautologous Red Blood Cells into Peripheral Vein, Percutaneous Approach (ICD-10-PCS; 2017-01-17)
DX: A41.9 Sepsis, unspecified organism (principal); K29.71 Gastritis, unspecified, with bleeding; J96.20 Acute and chronic respiratory failure, unspecified whether with hypoxia or hypercapnia; I50.33 Acute on chronic diastolic (congestive) heart failure; E44.0 Moderate protein-calorie malnutrition; G21.19 Other drug induced secondary parkinsonism; J44.1 Chronic obstructive pulmonary disease with (acute) exacerbation; I13.0 Hypertensive heart and chronic kidney disease with heart failure and stage 1 through stage 4 chronic kidney disease, or unspecified chronic kidney disease; N39.0 Urinary tract infection, site not specified; E87.1 Hypo-osmolality and hyponatremia; K44.9 Diaphragmatic hernia without obstruction or gangrene; B19.20 Unspecified viral hepatitis C without hepatic coma; I25.10 Atherosclerotic heart disease of native coronary artery without angina pectoris; Z95.810 Presence of automatic (implantable) cardiac defibrillator; Z99.81 Dependence on supplemental oxygen; F32.9 Major depressive disorder, single episode, unspecified; F41.9 Anxiety disorder, unspecified; E11.51 Type 2 diabetes mellitus with diabetic peripheral angiopathy without gangrene; K58.0 Irritable bowel syndrome with diarrhea; Z95.828 Presence of other vascular implants and grafts; G43.909 Migraine, unspecified, not intractable, without status migrainosus; G47.33 Obstructive sleep apnea (adult) (pediatric); E11.40 Type 2 diabetes mellitus with diabetic neuropathy, unspecified; Z87.891 Personal history of nicotine dependence; Z88.0 Allergy status to penicillin; F03.90 Unspecified dementia, unspecified severity, without behavioral disturbance, psychotic disturbance, mood disturbance, and anxiety; M54.30 Sciatica, unspecified side; D64.9 Anemia, unspecified; R29.2 Abnormal reflex; N18.3 Chronic kidney disease, stage 3 (moderate); I25.5 Ischemic cardiomyopathy; M21.372 Foot drop, left foot

== ENCOUNTER 2017-02-25 14:20 | Inpatient (IN) | payer MEDICAID ==
[2017-02-25] VITALS (8 sets, daily range): BP systolic 101–152; BP diastolic 31–64
[~2017-02-25] VITALS: Ht 154.9 cm; Wt 85.4 kg
--- NOTE | ~2017-02-25 | PR ---
[place], [place] PROGRESS NOTE NAME: CHRISTIAN HELLER UNIT #: [id number] ROOM: 509 DOCTOR: DEAN SANCHES MD BIRTHDATE: [birth year] DOS: 02/28/2017 NEPHROLOGY PROGRESS NOTE SUBJECTIVE: The patient is seen and evaluated. No acute events overnight. She is eating and drinking well. She was not reportedly started on a fluid restriction that was ordered. A cosyntropin stim test was done yesterday, the 30-minute level was not obtained for some reason by the lab, but an hour level was. The results came back with an initial a.m. level at 5:45 a.m. at 4.18, prompting the test to be done at noon. Actually at 12:16, her cortisol level was 17.39 and one hour later it was 32.41 after ACTH. TSH was normal. The rest of her electrolytes are unremarkable. Sodium remains low at 123, was 123 yesterday, up from 121 and 119 on admission, but down slightly from the 124 when she was taken off of 3% saline. She is not actively symptomatic. No nausea, no vomiting, no shortness of breath, no chest pain reported. PHYSICAL EXAMINATION: VITAL SIGNS: Currently, 98.2, 65, 20, 110/50, 98%. GENERAL: The patient is awake, alert, oriented, slightly limited conversation and speech content. Flat affect. Extraocular muscles are intact. Sclerae are anicteric. Oropharynx clear. Mucous membranes moist. No JVD or lymphadenopathy. LUNGS: Fairly clear, decreased at the bases. No audible rales. CARDIOVASCULAR: Rate regular. No audible rub. No palpable lift or heave, no peripheral cyanosis or edema. ABDOMEN: Obese, soft, nontender. No rebound, no guarding. NEUROLOGIC: Gross cranial nerves are intact, no tremors or myoclonus noted. ASSESSMENT AND PLAN: Laboratories as mentioned above. Creatinine stable at 1.5-1.7. She is on Bumex 2 mg daily, but thiazide has been discontinued. Continue to monitor for her hyponatremia with a fluid restriction primarily for now. If her creatinine continues to rise discontinuation or decrease of Bumex may be necessary, appears that she is eating and drinking otherwise very well with no signs of volume loss. She can remain off of 3% and any IV fluids at this point. Her cosyntropin stim test showed adequate adrenal function, so thyroid and adrenal function was ruled out as the cause of hyponatremia. Medication certainly can still be playing a role with several psychiatric medications possibly playing a role, but most likely the putative drug was metolazone or Zaroxolyn. [place], [place] PROGRESS NOTE NAME: CHRISTIAN HELLER UNIT #: [id number] ROOM: [facility] DOCTOR: DEAN SANCHES MD BIRTHDATE: [birth year] DEAN SANCHES MD CM:LASHELL [id number] DEAN SANCHES MD 03/01/17 0141 interface
--- NOTE | ~2017-02-25 | PR ---
[place], [place] PROGRESS NOTE NAME: [facility]ST[facility] HELLER [id number] UNIT #: [id number] ROOM: 509 DOCTOR: IBAN GUZMAN MD BIRTHDATE: [birth year] DOS: 02/28/2017 She is lying comfortably in the chair and is not in any distress. She said she does not have any pain anywhere. No nausea, no vomiting. She ate her lunch comfortably and is having normal bowel movement and the patient has been admitted to the hospital with hyponatremia, microcytic anemia, acute renal failure, acute lactic acidosis, weakness, protein calorie malnutrition, sciatica, coronary heart disease, systolic congestive heart failure, COPD and hyperlipidemia and some dementia also. At present, the patient seems to be quite comfortable, not in any distress and her heart is regular. Chest is clear. Abdomen is soft and her blood pressure 118/50, pulse 65, respirations 16, temperature 98.2 and her basic metabolic profile today showed blood sugar 130, BUN 47, creatinine 1.7. GFR is 38. Sodium is 123. It is still same since the last time it was done. It is not improving much, but the patient has received some intravenous normal saline today. May be that will improve and I have also advised the patient to eat more salt by mouth, but she says that she is definitely feeling better. IBAN GUZMAN MD CM:PNTRANS [id number] IBAN GUZMAN MD 03/01/17 0607 interface
--- NOTE | ~2017-02-25 | EKG ---
[place], [place] ELECTROCARDIOGRAM REPORT NAME: CHRISTIAN HELLER UNIT #: [id number] ROOM: 509 DOCTOR: LAURA MYERS MD BIRTHDATE: [birth year] DOS: 02/25/2017 This is a paced rhythm, so cannot be interpreted any further. LAURA MYERS MD CM:EKGRPT:ELECTROCARDIOGRAM REPORT [id number] LAURA MYERS MD
--- NOTE | ~2017-02-25 | PR ---
[place], [place] PROGRESS NOTE NAME: [facility]STIAN HELLER [id number] UNIT #: [id number] ROOM: 509 DOCTOR: BUSTER RIVERABRANDY Radha BIRTHDATE: [birth year] DOS: 03/01/2017 SUBJECTIVE: The patient was seen and examined. She is awake and alert. She denies shortness of breath, nausea or vomiting. She complains of being very thirsty and wants to drink more fluids. She is on 1200 mL fluid restriction presently. Of note, I was called yesterday afternoon in regards to the patient's hypotension and was asked if it would be okay for the patient to receive a bolus of normal saline. I did indicate that I never had seen the patient before, but that sounded acceptable from my standpoint. The patient was seen by Dr. Szymanski yesterday, and we are following her for hyponatremia and chronic kidney disease. PHYSICAL EXAMINATION: VITAL SIGNS: Temperature 98.7, pulse 78, respiratory rate 20, blood pressure 123/50. HEENT: Shows no jugular venous distention. Mucous membranes appear dry. LUNGS: Diminished breath sounds. No wheeze. HEART: Normal S1, S2. No rub, thrill or gallop. ABDOMEN: Soft, nontender. There is no organomegaly. There is no rigidity. EXTREMITIES: Showed no edema. SKIN: Showed no rash. LABORATORY DATA: Hemoglobin 9.1, white count 5.5, platelet count of 226. It does not appear that a chemistry has been drawn today. Yesterday labs showed a BUN of 47, creatinine of 1.7, sodium of 123. ASSESSMENT AND PLAN: 1. Stage 3 chronic kidney disease. It appears the patient has baseline creatinine in the middle ones range. Her creatinine appears to be at baseline with some subtle fluctuations at times. Continue to monitor labs. 2. Hyponatremia. The etiology is not clear. This also seems to be fairly stable with fluctuations. There may be an element of chronic hyponatremia. She may have impaired free water excretion in the setting of her renal dysfunction. 3. Would continue a fluid restriction; however, I do not feel that she needs to be on a 1200 mL fluid restriction. Can increase this to 1800 mL. Loop diuretics can be used as needed, but she appears to be euvolemic presently. Avoid using thiazides. 4. Anemia. Follow H and H. Transfuse as needed. 5. Diabetes. The patient is on insulin. [place], [place] PROGRESS NOTE NAME: CHRISTIAN HELLER UNIT #: [id number] ROOM: [facility] DOCTOR: BUSTER RIVERA,BRANDY Garcia BIRTHDATE: [birth year] BRANDY GOINS MD CM:PNTRANS [id number] BRANDY GOINS MD 03/02/17 0847 interface
--- NOTE | ~2017-02-25 | PR ---
[place], [place] PROGRESS NOTE NAME: [facility]ST[facility] HELLER [facility] [id number] UNIT #: [id number] ROOM: 509 DOCTOR: IBAN GUZMAN MD BIRTHDATE: [birth year] DOS: This is a patient who has been admitted to hospital with hyponatremia, microcytic anemia chronic in nature, acute renal failure, acute lactic acidosis, weakness, protein calorie malnutrition, sciatica, coronary heart disease, systolic congestive heart failure, COPD, hyperlipidemia and dementia. The patient is feeling fairly good today, she is not in any distress and she is eating her breakfast comfortably in the bed. No headache, no chest pain, no difficulty breathing. No pain in her abdomen. Her blood pressure today is 126/50, pulse 74, respirations 20, temperature 98.1. Her CBC shows chronic anemia with hemoglobin 9.1, hematocrit 27.3 due to her chronic multiple medical problems. Her heart is regular. Chest is clear. Abdomen is soft. So, the patient is progressively getting better. IBAN GUZMAN MD CM:PNTRANS [id number] IBAN GUZMAN MD 03/01/172013 interface
[~2017-02-25 14:20] MED LIST changes: +ALBUTEROL SULF0.5 M1 INH
[2017-02-25 15:25] LABS: BASO % 0.3 % (0.0-1.0); EOS # 0.1 10*3/uL (0.0-0.4); EOS % 1.8 % (1.0-4.0); HEMATOCRIT 22.5 % (37.0-47.0); HEMOGLOBIN 7.5 g/dl (12.0-16.0); IG # 0.1 10*3/uL (0.0-0.1); LYMPH # 1.3 10*3/uL (1.3-4.4); MEAN CELL VOLUME 75.8 fl (81.0-99.0); MEAN CORPUSCULAR HGB 25.3 pg (27.0-31.0); MEAN CORPUSCULAR HGB CONC 33.3 g/dl (33.0-37.0); MEAN PLATELET VOLUME 9.9 fl (9.6-12.3); MONO # 0.8 10*3/uL (0.1-1.0); MONO % 11.4 % (3.0-9.0); NEUT # 4.9 10*3/uL (2.3-7.9); NEUT % 67.8 % (47.0-73.0); PLATELET COUNT AUTOMATED 196 10*3/uL (130-400); RED BLOOD COUNT 2.97 10*6/uL (4.10-5.10); RED CELL DISTRI WIDTH 14.8 % (0-14.5); WHITE BLOOD COUNT 7.3 10*3/uL (4.8-10.8)
[2017-02-25 15:40] LABS: PROTHROMBIN TIME 10.4 SECONDS (9.0-12.4)
[2017-02-25 15:42] LABS: ALBUMIN 3.2 gm/dl (3.1-4.5); ALKALINE PHOSPHATASE 90 U/L (45-117); BILIRUBIN, TOTAL 0.3 mg/dl (0.2-1.0); BUN 52 mg/dl (7-24); CARBON DIOXIDE 25 mmol/L (21-32); CHLORIDE 77 mmol/L (98-107); EST GLOM FILT AFRICAN AMERICAN 38 ml/min; GLUCOSE 182 mg/dL (65-99); POTASSIUM 4.1 mmol/L (3.5-5.1); SGOT/AST 32 IU/L (3-35); SGPT/ALT 9 U/L (12-78); TOTAL PROTEIN 7.1 gm/dL (6.4-8.2)
[2017-02-25 15:51] LABS: SODIUM 119 mmol/L (136-145); TROPONIN I < 0.015 ng/ml (<0.045)
[2017-02-25 16:34] LABS: BILIRUBIN NEGATIVE (NEGATIVE); BLOOD NEGATIVE (NEGATIVE); CLARITY CLEAR (CLEAR); COLOR YELLOW (YELLOW); GLUCOSE NEGATIVE (NEGATIVE); KETONE NEGATIVE (NEGATIVE); LEUKO ESTERASE 1+ (NEGATIVE); NITRITE NEGATIVE (NEGATIVE); PH 5.5 (5.0-9.0); PROTEIN NEGATIVE (NEGATIVE); SPECIFIC GRAVITY <= 1.005 (1.005-1.030); UROBILINOGEN 0.2 E.U./dl (0.2-1.0)
[2017-02-25 16:48] LABS: EPITHELIAL CELLS 0-2; RBC 0-2 rbc/hpf (0-2); URINE REFLEX COMMENT YES (NO)
[2017-02-25 17:21] LABS: LA>2 REFLEX 2 HR DRAW NOW
[2017-02-25] MEDS ORDERED: CARBIDOPA PO (18:22)
[2017-02-25] MEDS ORDERED: [UNRECOGNIZED DRUG - OTHER] PO (18:22)
[2017-02-25] MEDS ORDERED: TOPCARE ASPIRIN81 MG PO (18:23)
[2017-02-25] MEDS ORDERED: 'PARAFON FORTE500 M1 PO (18:24)
[2017-02-26] VITALS (7 sets, daily range): BP systolic 110–147; BP diastolic 49–66
[2017-02-26 07:14] LABS: BASO % 0.4 % (0.0-1.0); EOS # 0.1 10*3/uL (0.0-0.4); EOS % 2.3 % (1.0-4.0); HEMATOCRIT 25.2 % (37.0-47.0); HEMOGLOBIN 8.5 g/dl (12.0-16.0); LYMPH # 1.6 10*3/uL (1.3-4.4); LYMPH % 28.2 % (27.0-41.0); MEAN CELL VOLUME 76.4 fl (81.0-99.0); MEAN CORPUSCULAR HGB 25.8 pg (27.0-31.0); MEAN CORPUSCULAR HGB CONC 33.7 g/dl (33.0-37.0); MEAN PLATELET VOLUME 9.7 fl (9.6-12.3); MONO # 0.9 10*3/uL (0.1-1.0); MONO % 16.2 % (3.0-9.0); NEUT % 52.4 % (47.0-73.0); PLATELET COUNT AUTOMATED 185 10*3/uL (130-400); RED CELL DISTRI WIDTH 15.4 % (0-14.5); WHITE BLOOD COUNT 5.6 10*3/uL (4.8-10.8)
[2017-02-26 07:38] LABS: ALKALINE PHOSPHATASE 79 U/L (45-117); BILIRUBIN, TOTAL 0.4 mg/dl (0.2-1.0); BUN 50 mg/dl (7-24); CARBON DIOXIDE 29 mmol/L (21-32); EST GLOM FILT AFRICAN AMERICAN 42 ml/min; GLUCOSE 163 mg/dL (65-99); IRON 303 ug/dL (50-170); IRON SATURATION 71 %; SGOT/AST 29 IU/L (3-35); TOTAL PROTEIN 6.8 gm/dL (6.4-8.2); UIBC 121 ug/dL (110-365)
[2017-02-26 08:10] LABS: CHLORIDE 81 mmol/L (98-107); POTASSIUM 3.5 mmol/L (3.5-5.1); SODIUM 124 mmol/L (136-145)
[2017-02-26 08:21] LABS: SGPT/ALT < 6 U/L (12-78)
[2017-02-26 18:23] LABS: MAGNESIUM 1.7 mg/dL (1.5-2.1); POTASSIUM 3.9 mmol/L (3.5-5.1)
[2017-02-27] VITALS (7 sets, daily range): BP systolic 106–156; BP diastolic 53–68
[2017-02-27 06:33] LABS: BASO % 0.4 % (0.0-1.0); EOS # 0.2 10*3/uL (0.0-0.4); HEMATOCRIT 25.1 % (37.0-47.0); HEMOGLOBIN 8.2 g/dl (12.0-16.0); LYMPH # 1.5 10*3/uL (1.3-4.4); LYMPH % 27.7 % (27.0-41.0); MEAN CELL VOLUME 76.1 fl (81.0-99.0); MEAN CORPUSCULAR HGB 24.8 pg (27.0-31.0); MEAN CORPUSCULAR HGB CONC 32.7 g/dl (33.0-37.0); MEAN PLATELET VOLUME 9.7 fl (9.6-12.3); MONO # 0.8 10*3/uL (0.1-1.0); MONO % 15.1 % (3.0-9.0); NEUT # 2.9 10*3/uL (2.3-7.9); NEUT % 52.1 % (47.0-73.0); PLATELET COUNT AUTOMATED 198 10*3/uL (130-400); RED CELL DISTRI WIDTH 15.5 % (0-14.5); WHITE BLOOD COUNT 5.5 10*3/uL (4.8-10.8)
[2017-02-27 07:03] LABS: POTASSIUM 3.6 mmol/L (3.5-5.1)
[2017-02-27 07:15] LABS: THYROID STIM HORMONE (HS) 3.49 uIU/ml (0.358-4.75)
[2017-02-28] VITALS: BP 135/58
[2017-02-28 05:57] LABS: POTASSIUM 3.7 mmol/L (3.5-5.1)
[2017-02-28 08:00] VITALS: BP 110/50
[2017-02-28 12:00] VITALS: BP 92/48
[2017-02-28 14:26] VITALS: BP 118/50
[2017-02-28 16:00] VITALS: BP 98/41
[2017-02-28 20:00] VITALS: BP 98/42
[2017-03-01] VITALS: BP 126/50
[2017-03-01 06:14] LABS: BASO % 0.5 % (0.0-1.0); EOS # 0.2 10*3/uL (0.0-0.4); EOS % 2.9 % (1.0-4.0); HEMATOCRIT 27.3 % (37.0-47.0); HEMOGLOBIN 9.1 g/dl (12.0-16.0); LYMPH # 1.5 10*3/uL (1.3-4.4); LYMPH % 27.9 % (27.0-41.0); MEAN CELL VOLUME 77.1 fl (81.0-99.0); MEAN CORPUSCULAR HGB 25.7 pg (27.0-31.0); MEAN CORPUSCULAR HGB CONC 33.3 g/dl (33.0-37.0); MONO # 0.8 10*3/uL (0.1-1.0); MONO % 15.2 % (3.0-9.0); NEUT # 2.9 10*3/uL (2.3-7.9); NEUT % 52.8 % (47.0-73.0); NUCLEATED RED BLOOD CELL 0.1 10*3/uL (0.0-0.0); NUCLEATED RED BLOOD CELL 0.9 % (0.0-0.0); PLATELET COUNT AUTOMATED 226 10*3/uL (130-400); RED BLOOD COUNT 3.54 10*6/uL (4.10-5.10); RED CELL DISTRI WIDTH 15.9 % (0-14.5); WHITE BLOOD COUNT 5.5 10*3/uL (4.8-10.8)
[2017-03-01 08:00] VITALS: BP 110/52; BP 118/60
[2017-03-01 12:00] VITALS: BP 123/50
[2017-03-01 16:00] VITALS: BP 149/75
[2017-03-01 20:00] VITALS: BP 110/42
[2017-03-02] VITALS: BP 98/52
[2017-03-02 04:00] VITALS: BP 128/68
[2017-03-02 08:00] VITALS: BP 138/50
[2017-03-02 12:00] VITALS: BP 112/52
[2017-03-02 13:17] LABS: BASO % 0.5 % (0.0-1.0); EOS # 0.2 10*3/uL (0.0-0.4); EOS % 2.5 % (1.0-4.0); HEMATOCRIT 26.6 % (37.0-47.0); HEMOGLOBIN 8.6 g/dl (12.0-16.0); LYMPH # 1.4 10*3/uL (1.3-4.4); LYMPH % 22.2 % (27.0-41.0); MEAN CELL VOLUME 78.5 fl (81.0-99.0); MEAN CORPUSCULAR HGB 25.4 pg (27.0-31.0); MEAN CORPUSCULAR HGB CONC 32.3 g/dl (33.0-37.0); MEAN PLATELET VOLUME 8.8 fl (9.6-12.3); MONO # 0.9 10*3/uL (0.1-1.0); MONO % 14.5 % (3.0-9.0); NEUT # 3.9 10*3/uL (2.3-7.9); NEUT % 59.8 % (47.0-73.0); PLATELET COUNT AUTOMATED 216 10*3/uL (130-400); RED BLOOD COUNT 3.39 10*6/uL (4.10-5.10); RED CELL DISTRI WIDTH 16.4 % (0-14.5); WHITE BLOOD COUNT 6.5 10*3/uL (4.8-10.8)
[2017-03-02 13:30] LABS: POTASSIUM 4.1 mmol/L (3.5-5.1)
[2017-03-02 16:00] VITALS: BP 122/44
[2017-03-02 20:00] VITALS: BP 136/44
[2017-03-03] VITALS: BP 118/48; BP 152/54
[2017-03-03 06:31] LABS: BASO % 0.4 % (0.0-1.0); EOS # 0.2 10*3/uL (0.0-0.4); EOS % 3.3 % (1.0-4.0); HEMATOCRIT 26.4 % (37.0-47.0); HEMOGLOBIN 8.6 g/dl (12.0-16.0); LYMPH # 1.7 10*3/uL (1.3-4.4); LYMPH % 30.1 % (27.0-41.0); MEAN CELL VOLUME 78.3 fl (81.0-99.0); MEAN CORPUSCULAR HGB 25.5 pg (27.0-31.0); MEAN CORPUSCULAR HGB CONC 32.6 g/dl (33.0-37.0); MEAN PLATELET VOLUME 9.3 fl (9.6-12.3); MONO % 17.7 % (3.0-9.0); NEUT # 2.7 10*3/uL (2.3-7.9); NEUT % 48.1 % (47.0-73.0); PLATELET COUNT AUTOMATED 221 10*3/uL (130-400); RED BLOOD COUNT 3.37 10*6/uL (4.10-5.10); RED CELL DISTRI WIDTH 16.4 % (0-14.5); WHITE BLOOD COUNT 5.5 10*3/uL (4.8-10.8)
[2017-03-03 07:06] LABS: ALBUMIN 3.1 gm/dl (3.1-4.5); MAGNESIUM 1.7 mg/dL (1.5-2.1); PHOSPHOROUS 5.2 mg/dL (2.5-4.9); POTASSIUM 3.9 mmol/L (3.5-5.1)
[2017-03-03 07:12] LABS: THYROID STIM HORMONE (HS) 2.25 uIU/ml (0.358-4.75)
[2017-03-03 08:00] VITALS: BP 120/45
[2017-03-03 12:00] VITALS: BP 98/63
[2017-03-03 16:00] VITALS: BP 139/56
== END 2017-03-03 16:09 | disposition home or self-care (01) | DRG 811 ==
LOC: ED 14:20 → EDHOLD 16:28 → 5E 16:28
PROVIDERS: Hospitalist; Internal Medicine; Internal Medicine Nephrology; Physician Assistant
PROC: 30233N1 Transfusion of Nonautologous Red Blood Cells into Peripheral Vein, Percutaneous Approach (ICD-10-PCS; principal; 2017-02-25)
DX: D50.0 Iron deficiency anemia secondary to blood loss (chronic) (principal); N17.0 Acute kidney failure with tubular necrosis; J96.10 Chronic respiratory failure, unspecified whether with hypoxia or hypercapnia; E44.0 Moderate protein-calorie malnutrition; E87.2 Acidosis; E87.1 Hypo-osmolality and hyponatremia; I50.22 Chronic systolic (congestive) heart failure; I13.0 Hypertensive heart and chronic kidney disease with heart failure and stage 1 through stage 4 chronic kidney disease, or unspecified chronic kidney disease; M54.30 Sciatica, unspecified side; J44.9 Chronic obstructive pulmonary disease, unspecified; F03.90 Unspecified dementia, unspecified severity, without behavioral disturbance, psychotic disturbance, mood disturbance, and anxiety; G62.9 Polyneuropathy, unspecified; N18.3 Chronic kidney disease, stage 3 (moderate); I25.10 Atherosclerotic heart disease of native coronary artery without angina pectoris; E78.5 Hyperlipidemia, unspecified; B18.2 Chronic viral hepatitis C; E11.65 Type 2 diabetes mellitus with hyperglycemia; E11.22 Type 2 diabetes mellitus with diabetic chronic kidney disease; E11.42 Type 2 diabetes mellitus with diabetic polyneuropathy; Z79.4 Long term (current) use of insulin; Z95.1 Presence of aortocoronary bypass graft; Z90.710 Acquired absence of both cervix and uterus; Z95.810 Presence of automatic (implantable) cardiac defibrillator; Z87.891 Personal history of nicotine dependence; Z82.49 Family history of ischemic heart disease and other diseases of the circulatory system; Z84.1 Family history of disorders of kidney and ureter; Z83.6 Family history of other diseases of the respiratory system; Z80.1 Family history of malignant neoplasm of trachea, bronchus and lung; Z83.49 Family history of other endocrine, nutritional and metabolic diseases; Z79.82 Long term (current) use of aspirin; Z79.899 Other long term (current) drug therapy; Z68.35 Body mass index [BMI] 35.0-35.9, adult

== ENCOUNTER → 2017-03-09 | Outpatient (CLI) | payer MEDICAID ==
[~2017-03-09] MED LIST changes: +'PARAFON FORTE500 M1 PO; +CARBIDOPA PO; +TOPCARE ASPIRIN81 MG PO; +[UNRECOGNIZED DRUG - OTHER] PO
[2017-03-09 11:56] LABS: POTASSIUM 4.3 mmol/L (3.5-5.1)
== END | disposition home or self-care (01) ==
LOC: LAB 11:02
PROVIDERS: Hospitalist
DX: N17.9 Acute kidney failure, unspecified (principal)

== ENCOUNTER → 2017-03-10 | Outpatient (CLI) | payer MEDICAID | END | disposition home or self-care (01) | LOC: RAD 14:27 | DX: M19.032 Primary osteoarthritis, left wrist (principal); W07.XXXA Fall from chair, initial encounter; Y93.89 Activity, other specified; Y92.89 Other specified places as the place of occurrence of the external cause; Y99.8 Other external cause status ==

== ENCOUNTER → 2017-03-24 | Outpatient (CLI) | payer MEDICAID ==
[2017-03-24 15:23] LABS: BASO % 0.2 % (0.0-1.0); EOS # 0.2 10*3/uL (0.0-0.4); HEMATOCRIT 24.1 % (37.0-47.0); HEMOGLOBIN 7.4 g/dl (12.0-16.0); LYMPH # 1.2 10*3/uL (1.3-4.4); LYMPH % 20.7 % (27.0-41.0); MEAN CELL VOLUME 77.2 fl (81.0-99.0); MEAN CORPUSCULAR HGB 23.7 pg (27.0-31.0); MEAN CORPUSCULAR HGB CONC 30.7 g/dl (33.0-37.0); MEAN PLATELET VOLUME 8.9 fl (9.6-12.3); MONO # 0.5 10*3/uL (0.1-1.0); MONO % 9.6 % (3.0-9.0); NEUT # 3.7 10*3/uL (2.3-7.9); NEUT % 66.1 % (47.0-73.0); PLATELET COUNT AUTOMATED 222 10*3/uL (130-400); RED BLOOD COUNT 3.12 10*6/uL (4.10-5.10); RED CELL DISTRI WIDTH 16.9 % (0-14.5); WHITE BLOOD COUNT 5.6 10*3/uL (4.8-10.8)
== END | disposition home or self-care (01) ==
LOC: LAB 14:46
PROVIDERS: Internal Medicine
DX: J44.9 Chronic obstructive pulmonary disease, unspecified (principal); I51.7 Cardiomegaly

== ENCOUNTER 2017-03-26 13:56 | Inpatient (IN) | payer MEDICAID ==
[~2017-03-26] VITALS: Ht 154.9 cm; Wt 86.7 kg
--- NOTE | ~2017-03-26 | EKG ---
[place], [place] ELECTROCARDIOGRAM REPORT NAME: CHRISTIAN HELLER UNIT #: [id number] ROOM: 411 DOCTOR: KANG LYNN MD BIRTHDATE: [birth year] DOS: 03/26/2017 TIME: 1840 hours. FINDINGS: 1. Normal sinus rhythm at 75 beats per minute. 2. Atrial sensing and unipolar ventricular pacing is present. KANG LYNN MD CM:EKGRPT:ELECTROCARDIOGRAM REPORT [id number] KANG LYNN MD
--- NOTE | ~2017-03-26 | CON ---
[place], [place] REPORT OF CONSULTATION NAME: [id number] UNIT #: [id number] ROOM: 411 DOCTOR: KANG LYNN MD BIRTHDATE: [birth year] DOS: 03/28/2017 HISTORY OF PRESENT ILLNESS: This is a 62-year-old -Stateless woman whom I have known for the last 15 years or so. She has coronary artery disease and had coronary artery bypass graft surgery in the remote past and her LV ejection fraction had decreased significantly and it required implantation of an AICD, which got infected a couple of times and she believes she has unipolar pacing now. She had an EF that had improved over the years and the last EF was about 45%-50%. She had left carotid endarterectomy within the last couple of years. This was done in [facility]. She has chronic kidney disease, which has recently had improved somewhat. She has COPD and had smoked in the very remote past. She has hepatitis C, essential hypertension, and peripheral vascular disease. She has chronic anemia and hemoglobin has been 8-10 g over the last 4-5 years. Her diabetes has been present for a long time with its attendant complications and has not been controlled that well at home. She was seen by Dr. Lindsay in his office and she had been complaining of weakness. Hemoglobin was found to be 7.4 g and was brought to the hospital for transfusion. She feels quite well now. She never had any chest pain or breathing difficulty and did not feel dizzy and there has not been any orthopnea or swelling of the lower extremities. She has not noticed her AICD shocking her. HOME MEDICATIONS: Include bronchodilator therapy, Abilify, carbidopa/levodopa, aspirin, carvedilol, ferrous sulfate, gabapentin, gemfibrozil, [place] 7.5/325 mg tablets. Humulin R, Humalog, lisinopril, loperamide, mirtazapine, she uses 3 liters of oxygen as needed, Protonix 40 daily, ranitidine 150 b.i.d., and Spiriva 1 inhalation daily. PHYSICAL EXAMINATION: GENERAL: Reveals a patient who is moderately obese. She is rather quiet, pleasant, comfortable. She is not tachypneic. Temperature is normal. There is no finger clubbing. VITAL SIGNS: Pulse is regular at 80 beats per minute, blood pressure 140/54. NECK: JVP is normal. There is no carotid bruit. HEART: There is no cardiomegaly. Auscultation did not reveal any obvious murmurs. EXTREMITIES: She has no edema at all in the lower extremities. Pedal pulses are diminished or rather of reduced volume. RESPIRATORY: Breath sounds are fairly good with very few adventitious sounds in the bases. Monitor shows ventricular pacing. ECG shows normal sinus rhythm with atrial sensing and ventricular pacing. IMPRESSION: 1. Coronary artery disease, status post coronary artery bypass graft. This is asymptomatic. [place], [place] REPORT OF CONSULTATION NAME: CHRISTIAN HELLER UNIT #: [id number] ROOM: 411 DOCTOR: KANG LYNN MD BIRTHDATE: [birth year] 2. Mild ischemic cardiomyopathy and this is well compensated. She has not had any decompensation over the years. 3. Severe anemia. This is allegedly said to be due to gastritis. RECOMMENDATIONS: Since she has been anemic for so long, if you feel that stopping the aspirin would help with her chronic anemia/blood loss, I would be in favor of this. Thank you for this consult. KANG LYNN MD CM:CONSTR:REPORT OF CONSULTATION 0828 03/30/17 0539 interface
[2017-03-26 14:02] VITALS: BP 141/55
[2017-03-26 14:50] LABS: BASO % 0.2 % (0.0-1.0); EOS # 0.1 10*3/uL (0.0-0.4); EOS % 2.2 % (1.0-4.0); HEMATOCRIT 21.7 % (37.0-47.0); HEMOGLOBIN 6.8 g/dl (12.0-16.0); LYMPH # 1.2 10*3/uL (1.3-4.4); LYMPH % 21.8 % (27.0-41.0); MEAN CELL VOLUME 76.1 fl (81.0-99.0); MEAN CORPUSCULAR HGB 23.9 pg (27.0-31.0); MEAN CORPUSCULAR HGB CONC 31.3 g/dl (33.0-37.0); MEAN PLATELET VOLUME 9.9 fl (9.6-12.3); MONO # 0.6 10*3/uL (0.1-1.0); MONO % 9.9 % (3.0-9.0); NEUT # 3.6 10*3/uL (2.3-7.9); NEUT % 65.4 % (47.0-73.0); PLATELET COUNT AUTOMATED 211 10*3/uL (130-400); RED BLOOD COUNT 2.85 10*6/uL (4.10-5.10); RED CELL DISTRI WIDTH 16.5 % (0-14.5); WHITE BLOOD COUNT 5.5 10*3/uL (4.8-10.8)
[2017-03-26 15:10] LABS: ALBUMIN 3.2 gm/dl (3.1-4.5); ALKALINE PHOSPHATASE 78 U/L (45-117); BILIRUBIN, TOTAL 0.2 mg/dl (0.2-1.0); BUN 29 mg/dl (7-24); CARBON DIOXIDE 27 mmol/L (21-32); CHLORIDE 88 mmol/L (98-107); EST GLOM FILT AFRICAN AMERICAN 48 ml/min; GLUCOSE 100 mg/dL (65-99); POTASSIUM 3.8 mmol/L (3.5-5.1); SGOT/AST 28 IU/L (3-35); SODIUM 127 mmol/L (136-145); TOTAL PROTEIN 7.2 gm/dL (6.4-8.2)
[2017-03-26 15:16] LABS: SGPT/ALT < 6 U/L (12-78)
[2017-03-26 15:27] LABS: BILIRUBIN NEGATIVE (NEGATIVE); BLOOD NEGATIVE (NEGATIVE); CLARITY SL CLOUDY (CLEAR); COLOR YELLOW (YELLOW); GLUCOSE NEGATIVE (NEGATIVE); KETONE NEGATIVE (NEGATIVE); LEUKO ESTERASE 1+ (NEGATIVE); NITRITE POSITIVE (NEGATIVE); PROTEIN NEGATIVE (NEGATIVE); SPECIFIC GRAVITY <= 1.005 (1.005-1.030); UROBILINOGEN 0.2 E.U./dl (0.2-1.0)
[2017-03-26 15:45] LABS: BACTERIA 3+; RBC 0-2 rbc/hpf (0-2); URINE REFLEX COMMENT YES (NO)
[2017-03-26 16:59] VITALS: BP 163/68
[2017-03-26 18:13] LABS: CPK 91 U/L (26-192)
[2017-03-26 18:15] LABS: CKMB 5.4 ng/ml (0.5-3.6); TROPONIN I < 0.015 ng/ml (<0.045)
[2017-03-26 20:00] VITALS: BP 129/46
[2017-03-27] VITALS (16 sets, daily range): BP systolic 118–160; BP diastolic 44–80
[2017-03-27 00:31] LABS: CKMB 4.5 ng/ml (0.5-3.6); CPK 88 U/L (26-192)
[2017-03-27 00:32] LABS: TROPONIN I < 0.015 ng/ml (<0.045)
[2017-03-27 06:52] LABS: BASO % 0.3 % (0.0-1.0); EOS # 0.1 10*3/uL (0.0-0.4); EOS % 2.4 % (1.0-4.0); HEMATOCRIT 19.8 % (37.0-47.0); HEMOGLOBIN 6.3 g/dl (12.0-16.0); LYMPH # 1.2 10*3/uL (1.3-4.4); LYMPH % 31.3 % (27.0-41.0); MEAN CELL VOLUME 76.4 fl (81.0-99.0); MEAN CORPUSCULAR HGB 24.3 pg (27.0-31.0); MEAN CORPUSCULAR HGB CONC 31.8 g/dl (33.0-37.0); MEAN PLATELET VOLUME 9.6 fl (9.6-12.3); MONO # 0.6 10*3/uL (0.1-1.0); MONO % 15.5 % (3.0-9.0); NEUT # 1.9 10*3/uL (2.3-7.9); NUCLEATED RED BLOOD CELL 0.5 % (0.0-0.0); PLATELET COUNT AUTOMATED 206 10*3/uL (130-400); RED BLOOD COUNT 2.59 10*6/uL (4.10-5.10); RED CELL DISTRI WIDTH 16.5 % (0-14.5); WHITE BLOOD COUNT 3.8 10*3/uL (4.8-10.8)
[2017-03-27 06:57] LABS: CKMB 3.6 ng/ml (0.5-3.6); CPK 70 U/L (26-192)
[2017-03-27 06:58] LABS: TROPONIN I < 0.015 ng/ml (<0.045)
[2017-03-27 07:28] LABS: POTASSIUM 3.8 mmol/L (3.5-5.1)
[2017-03-27 07:34] LABS: FOLIC ACID 7.22 ng/mL (>5.38); VITAMIN D, 25-HYDROXY 38.3 ng/mL (30-100)
[2017-03-27 07:42] LABS: HEMOGLOBIN A1c 6.1 % (4.8-5.6)
[2017-03-27 07:45] LABS: FREE T4 0.94 ng/dl (0.76-1.46); MAGNESIUM 1.6 mg/dL (1.5-2.1); PHOSPHOROUS 3.3 mg/dL (2.5-4.9); THYROID STIM HORMONE (HS) 2.83 uIU/ml (0.358-4.75)
[2017-03-28 00:09] VITALS: BP 140/54
[2017-03-28 05:56] LABS: ALBUMIN 3.1 gm/dl (3.1-4.5); MAGNESIUM 1.7 mg/dL (1.5-2.1); PHOSPHOROUS 3.8 mg/dL (2.5-4.9); POTASSIUM 3.9 mmol/L (3.5-5.1)
[2017-03-28 07:27] LABS: BASO % 0.3 % (0.0-1.0); EOS # 0.1 10*3/uL (0.0-0.4); EOS % 0.6 % (1.0-4.0); LYMPH # 0.8 10*3/uL (1.3-4.4); LYMPH % 10.6 % (27.0-41.0); MEAN CORPUSCULAR HGB 26.1 pg (27.0-31.0); MEAN CORPUSCULAR HGB CONC 32.7 g/dl (33.0-37.0); MEAN PLATELET VOLUME 9.5 fl (9.6-12.3); MONO # 0.8 10*3/uL (0.1-1.0); MONO % 10.1 % (3.0-9.0); PLATELET COUNT AUTOMATED 227 10*3/uL (130-400); RED BLOOD COUNT 3.53 10*6/uL (4.10-5.10); RED CELL DISTRI WIDTH 16.9 % (0-14.5); WHITE BLOOD COUNT 7.7 10*3/uL (4.8-10.8)
[2017-03-28 07:28] LABS: HEMATOCRIT 28.1 % (37.0-47.0); HEMOGLOBIN 9.2 g/dl (12.0-16.0); MEAN CELL VOLUME 79.6 fl (81.0-99.0)
[2017-03-28 08:00] VITALS: BP 120/50
[2017-03-28 12:00] VITALS: BP 102/42
[2017-03-28 16:00] VITALS: BP 118/58
[2017-03-28 20:00] VITALS: BP 139/50
[2017-03-29 06:08] LABS: HEMATOCRIT 28.2 % (37.0-47.0); MEAN CELL VOLUME 79.9 fl (81.0-99.0); MEAN CORPUSCULAR HGB 25.5 pg (27.0-31.0); MEAN CORPUSCULAR HGB CONC 31.9 g/dl (33.0-37.0); MEAN PLATELET VOLUME 9.2 fl (9.6-12.3); PLATELET COUNT AUTOMATED 206 10*3/uL (130-400); RED BLOOD COUNT 3.53 10*6/uL (4.10-5.10); RED CELL DISTRI WIDTH 16.7 % (0-14.5); WHITE BLOOD COUNT 6.2 10*3/uL (4.8-10.8)
[2017-03-29 06:33] LABS: POTASSIUM 3.5 mmol/L (3.5-5.1)
[2017-03-29 06:35] LABS: BASOPHIL # 0.1 10*3/uL (0-0.1); BASOPHILS 1 % (0-1); EOSINOPHIL # 0.1 10*3/uL (0-0.4); EOSINOPHILS 1 % (1-4); NEUTROPHILS 49 % (47-73); PLATELET SUFFICIENCY NORMAL (NORMAL); POLYCHROMASIA SLIGHT; TOTAL CELLS COUNTED 100 #CELLS
[2017-03-29 08:00] VITALS: BP 128/52
[2017-03-29 08:12] VITALS: BP 130/60
[2017-03-29] MEDS ORDERED: NYSTOP100000 U/G T (10:58)
[2017-03-29] MEDS ORDERED: BUMETANIDE1 MG PO (11:01)
[2017-03-29 12:00] VITALS: BP 100/42
== END 2017-03-29 12:15 | disposition home or self-care (01) | DRG 812 ==
LOC: ED 13:56 → EDHOLD 15:11 → 4E 15:11
PROVIDERS: Internal Medicine; Internal Medicine Nephrology; Registered Nurse; Student in an Organized Health Care Education/Training Program
PROC: 30233N1 Transfusion of Nonautologous Red Blood Cells into Peripheral Vein, Percutaneous Approach (ICD-10-PCS; principal; 2017-03-27)
DX: D62 Acute posthemorrhagic anemia (principal); J96.10 Chronic respiratory failure, unspecified whether with hypoxia or hypercapnia; E44.0 Moderate protein-calorie malnutrition; F03.90 Unspecified dementia, unspecified severity, without behavioral disturbance, psychotic disturbance, mood disturbance, and anxiety; I50.22 Chronic systolic (congestive) heart failure; I13.0 Hypertensive heart and chronic kidney disease with heart failure and stage 1 through stage 4 chronic kidney disease, or unspecified chronic kidney disease; N39.0 Urinary tract infection, site not specified; E87.1 Hypo-osmolality and hyponatremia; E11.22 Type 2 diabetes mellitus with diabetic chronic kidney disease; E11.40 Type 2 diabetes mellitus with diabetic neuropathy, unspecified; D50.9 Iron deficiency anemia, unspecified; I25.5 Ischemic cardiomyopathy; J02.9 Acute pharyngitis, unspecified; J44.9 Chronic obstructive pulmonary disease, unspecified; N18.3 Chronic kidney disease, stage 3 (moderate); E11.65 Type 2 diabetes mellitus with hyperglycemia; I25.10 Atherosclerotic heart disease of native coronary artery without angina pectoris; D72.819 Decreased white blood cell count, unspecified; B18.2 Chronic viral hepatitis C; E78.5 Hyperlipidemia, unspecified; E11.51 Type 2 diabetes mellitus with diabetic peripheral angiopathy without gangrene; Z79.4 Long term (current) use of insulin; Z95.1 Presence of aortocoronary bypass graft; Z90.710 Acquired absence of both cervix and uterus; Z98.51 Tubal ligation status; I25.2 Old myocardial infarction; Z95.820 Peripheral vascular angioplasty status with implants and grafts; Z95.810 Presence of automatic (implantable) cardiac defibrillator; Z79.82 Long term (current) use of aspirin; Z79.899 Other long term (current) drug therapy; Z87.891 Personal history of nicotine dependence; Z82.49 Family history of ischemic heart disease and other diseases of the circulatory system; Z83.3 Family history of diabetes mellitus; Z84.2 Family history of other diseases of the genitourinary system; Z83.6 Family history of other diseases of the respiratory system; Z82.3 Family history of stroke; Z80.1 Family history of malignant neoplasm of trachea, bronchus and lung; Z83.49 Family history of other endocrine, nutritional and metabolic diseases; Z68.36 Body mass index [BMI] 36.0-36.9, adult; Z99.81 Dependence on supplemental oxygen

== ENCOUNTER → 2017-04-01 | Outpatient (CLI) | payer MEDICAID ==
[~2017-04-01] MED LIST changes: +BUMETANIDE1 MG PO; +NYSTOP100000 U/G T
[2017-04-01 12:49] LABS: BASO % 0.3 % (0.0-1.0); EOS # 0.2 10*3/uL (0.0-0.4); EOS % 2.9 % (1.0-4.0); HEMOGLOBIN 8.9 g/dl (12.0-16.0); LYMPH # 1.3 10*3/uL (1.3-4.4); LYMPH % 18.7 % (27.0-41.0); MEAN CELL VOLUME 81.9 fl (81.0-99.0); MEAN CORPUSCULAR HGB CONC 31.8 g/dl (33.0-37.0); MEAN PLATELET VOLUME 8.9 fl (9.6-12.3); MONO # 0.7 10*3/uL (0.1-1.0); MONO % 10.4 % (3.0-9.0); NEUT # 4.7 10*3/uL (2.3-7.9); NEUT % 67.3 % (47.0-73.0); PLATELET COUNT AUTOMATED 198 10*3/uL (130-400); RED BLOOD COUNT 3.42 10*6/uL (4.10-5.10); RED CELL DISTRI WIDTH 16.8 % (0-14.5); WHITE BLOOD COUNT 6.9 10*3/uL (4.8-10.8)
[2017-04-01 13:13] LABS: POTASSIUM 4.2 mmol/L (3.5-5.1)
== END | disposition home or self-care (01) ==
LOC: LAB 12:23
PROVIDERS: Internal Medicine
DX: J44.9 Chronic obstructive pulmonary disease, unspecified (principal)

== ENCOUNTER → 2017-04-06 | Outpatient (CLI) | payer MEDICAID ==
[2017-04-06 15:22] LABS: BASO % 0.3 % (0.0-1.0); EOS # 0.1 10*3/uL (0.0-0.4); HEMATOCRIT 27.7 % (37.0-47.0); HEMOGLOBIN 8.8 g/dl (12.0-16.0); LYMPH # 1.5 10*3/uL (1.3-4.4); LYMPH % 22.9 % (27.0-41.0); MEAN CELL VOLUME 79.1 fl (81.0-99.0); MEAN CORPUSCULAR HGB 25.1 pg (27.0-31.0); MEAN CORPUSCULAR HGB CONC 31.8 g/dl (33.0-37.0); MEAN PLATELET VOLUME 9.8 fl (9.6-12.3); MONO # 0.5 10*3/uL (0.1-1.0); MONO % 7.3 % (3.0-9.0); NEUT # 4.3 10*3/uL (2.3-7.9); NEUT % 67.2 % (47.0-73.0); PLATELET COUNT AUTOMATED 225 10*3/uL (130-400); RED CELL DISTRI WIDTH 16.2 % (0-14.5); WHITE BLOOD COUNT 6.4 10*3/uL (4.8-10.8)
[2017-04-07 05:08] LABS: TOTAL PROTEIN, SERUM 6.7 g/dL (6.0-8.5)
[2017-04-07 07:05] LABS: HAPTOGLOBIN 001628 223 mg/dL (34-200)
[2017-04-07 16:11] LABS: ALBUMIN 3.3 g/dL (2.9-4.4); ALBUMIN, URINE 64.2 % (.); ALPHA-1-GLOBULIN 0.3 g/dL (0.0-0.4); BETA GLOBULIN 1.2 g/dL (0.7-1.3); GAMMA GLOBULIN, URINE 9.5 % (.); GLOBULIN, TOTAL 3.4 g/dL (2.2-3.9); M-SPIKE Not Observed g/dL (Not Observed); M-SPIKE, % Not Observed % (Not Observed); PROTEIN,TOTAL - URINE RANDOM 31.9 mg/dL (Not Estab.)
== END | disposition home or self-care (01) ==
LOC: LAB 13:29
PROVIDERS: Internal Medicine Hematology & Oncology
DX: N18.3 Chronic kidney disease, stage 3 (moderate) (principal); D64.9 Anemia, unspecified

== ENCOUNTER → 2017-06-08 | Outpatient (CLI) | payer MEDICAID ==
[2017-06-08 14:04] LABS: BASO % 0.2 % (0.0-1.0); EOS # 0.1 10*3/uL (0.0-0.4); EOS % 1.8 % (1.0-4.0); HEMATOCRIT 25.2 % (37.0-47.0); HEMOGLOBIN 7.4 g/dl (12.0-16.0); LYMPH # 1.7 10*3/uL (1.3-4.4); LYMPH % 25.1 % (27.0-41.0); MEAN CELL VOLUME 76.6 fl (81.0-99.0); MEAN CORPUSCULAR HGB 22.5 pg (27.0-31.0); MEAN CORPUSCULAR HGB CONC 29.4 g/dl (33.0-37.0); MEAN PLATELET VOLUME 9.6 fl (9.6-12.3); MONO # 0.7 10*3/uL (0.1-1.0); MONO % 9.9 % (3.0-9.0); NEUT # 4.2 10*3/uL (2.3-7.9); NEUT % 62.5 % (47.0-73.0); PLATELET COUNT AUTOMATED 214 10*3/uL (130-400); RED BLOOD COUNT 3.29 10*6/uL (4.10-5.10); RED CELL DISTRI WIDTH 16.3 % (0-14.5); WHITE BLOOD COUNT 6.7 10*3/uL (4.8-10.8)
== END | disposition home or self-care (01) ==
LOC: MAMMO 13:08 → LAB 13:08 → MAMMO 13:30
PROVIDERS: Internal Medicine
DX: Z12.31 Encounter for screening mammogram for malignant neoplasm of breast (principal); D50.9 Iron deficiency anemia, unspecified; D46.1 Refractory anemia with ring sideroblasts

== ENCOUNTER 2017-06-16 18:37 | Inpatient (IN) | payer MEDICAID ==
[~2017-06-16] VITALS: Ht 154.9 cm
--- NOTE | ~2017-06-16 | CON ---
[place], [place] REPORT OF CONSULTATION NAME: CHRISTIAN HELLER UNIT #: [id number] ROOM: 412 DOCTOR: DEAN SANCHES MD BIRTHDATE: [birth year] DOS: 06/17/2017 REASON FOR CONSULTATION: CKD, hyponatremia assessment. HISTORY OF PRESENT ILLNESS: The patient is a pleasant 62-year-old woman known to our service, previously from being hospitalized. She is also followed in the remote past by me in the hospital as well. She was recently seen by our service just earlier this year. Apparently, her reported that she was becoming very sedated and fatigued, falling asleep while trying to eat. According to EMS notes, she was unresponsive and blood sugars were in the 20s. She had been aggressive, confused, and combative with EMS and Versed had been given. She was also obtunded asking for dog that was put down according to the as well. She was noted to be anemic. She has had a bone marrow. I do not have the results of this available to me at this time. She states that this was done by Dr. Ford and there was poor production of her blood counts. Baseline creatinine has fluctuated and it has been in the low 1s in the most range. She has had severe hyponatremia and metolazone had been discontinued. General now it has been in the high 120s to low 130s. She does get some chronic venous insufficiency and lower extremity edema, but does not have any recently. No urinary symptoms are noted. She is about to be transfused for hemoglobin in the 6's again. She is on Bumex. No further thiazides are reported to have been given. She was on opioids and gabapentin for pain. Her creatinine is slightly higher than her baseline at 1.9. It came down to 1.6 with IV fluids. Her sodium was 128, up slightly from 127 yesterday. Hemoglobin A1c was 7.2. TSH was normal. Urine studies showed a low specific gravity, but no electrolytes have been done. REVIEW OF SYSTEMS: Limited, but in general negative except for as per HPI in all systems, but her memory is perhaps a little bit decreased. PAST MEDICAL HISTORY: Coronary artery disease, chronic pain, CKD 3, COPD, dementia, hepatitis C, hyponatremia, anemia, possible myelodysplastic syndrome versus other etiology unclear, CHF likely diastolic in nature. Last echocardiogram in our system is from 2012, which showed grade 1 diastolic dysfunction and possibly mild to moderate reduction in EF, but difficult to evaluate. In 2012, EF was 25-30%. No recent bleeding reported. PHYSICAL EXAMINATION: VITAL SIGNS: 97.7, 67, 20, 134/68. She was 98/50 overnight, pulse ox 97 to 100%. GENERAL: She is awake, alert now. She is not in acute distress, eating her breakfast. is at the bedside. In general, she appears reasonably well nourished and well developed. HEAD AND NECK: Sclerae are anicteric. Oropharynx is clear. Mucous membranes are moist. No JVD or lymphadenopathy. LUNGS: Clear bilaterally. No audible rales or wheeze. CARDIOVASCULAR: Regular rate. No audible rub. ABDOMEN: Obese, soft, nontender, no rebound, no guarding. EXTREMITIES: Lower extremities without cyanosis, clubbing or edema. SKIN: Without diffuse rashes or breakdowns. [place], [place] REPORT OF CONSULTATION NAME: CHRISTIAN HELLER UNIT #: [id number] ROOM: 412 DOCTOR: DEAN SANCHES MD BIRTHDATE: [birth year] PSYCHIATRIC: Flat affect, insight limited, otherwise speech and recall is intact, short term. LABORATORIES AND DIAGNOSTICS: White blood cell count 5.3, hemoglobin 6.5, platelets 232. Sodium 128, potassium 3.9, chloride 92, bicarbonate 30, BUN 38, creatinine 1.62. A1c 7.2, calcium 8.7. TSH 1.4. ASSESSMENT AND PLAN: Hyponatremia. This is chronic in nature, has been multifactorial for congestive heart failure, some SIADH as well as possible poor intake of late may have been contributing. We will check urine electrolytes and osmolality if there is no improvement. Does seem to be improving with isotonic volume administration. I will give her further liter and then stop her IV fluids. She is to be transfused now, any acute losses for her severe anemia, etiology is not clear. She has been followed by Dr. Ford in the past for this and reported getting a bone marrow performed not too long ago. Her other electrolytes are acceptable. In terms of her CKD 3, she likely has some acute kidney injury on top of this and renal function does appear to be improving and still slightly above her baseline. Follow intake and output and avoid nephrotoxic medications. She may need to have her gabapentin and narcotics reduced if she is having fluctuating GFR and perhaps some poor metabolism of these drugs causing some of her delirium and metabolic encephalopathy. Certainly hypoglycemic events may have been the primary factor, though as well. Thank you very much. We will continue to follow. DEAN SANCHES MD CM:CONSTR:REPORT OF CONSULTATION 1235 06/18/17 0317 interface
--- NOTE | ~2017-06-16 | CON ---
[place], [place] REPORT OF CONSULTATION NAME: CHRISTIAN HELLER UNIT #: [id number] ROOM: 412 DOCTOR: NATHALIE GARCIA MD BIRTHDATE: [birth year] DOS: 06/18/2017 HISTORY OF PRESENT ILLNESS: The patient is a pleasant 62-year-old Euro-[place] woman brought back to the Emergency Department via EMS when she was found to be unresponsive. She was noted to have a blood sugar of around 20 and subsequently on routine CBC examination, she was found to have a hemoglobin around 6.4. I am consulted for further evaluation and management. PAST MEDICAL HISTORY: Coronary artery disease, chronic respiratory failure, chronic kidney disease stage 3, chronic low back pain, dementia, hepatitis C, history of myocardial infarction, hyperlipidemia, hypertension, hyponatremia, leukopenia, pacemaker, peripheral neuropathy, peripheral vascular obstructive disease, ____, sciatica, type 2 diabetes, and weakness. PAST SURGICAL HISTORY: Femoral popliteal bypass, history of left side carotid endarterectomy, history of abscess in the breast with incision and drainage, history of hysterectomy, CABG, as well as cardiac defibrillator. SOCIAL HISTORY: He was a former smoker, 80-pack history for 40 years, quitting in 2006. No drug or alcohol. FAMILY HISTORY: Father; hypotension, coronary artery disease, CHF who at age 60 from hypotension complications. Mother; history of lung cancer, hypotension, emphysema, ____, and congestive heart failure, at age 54 because of myocardial infarction. ALLERGIES: No allergies. MEDICATIONS: She is on albuterol, aspirin, Abilify, Symbicort, bumetanide, carbidopa, carvedilol, ferrous sulfate, gabapentin, vitamin D3, Parafon Forte, gemfibrozil, hydrocodone and acetaminophen, insulin, lisinopril, loperamide, mirtazapine, nitroglycerin, getting oxygen, pantoprazole sodium, ranitidine and tiotropium bromide. REVIEW OF SYSTEMS: CONSTITUTIONAL: No chills. No fatigue. No fever. No loss of appetite. No night sweats. No weakness. No weight loss. HEENT: No trouble swallowing. No loss of smell. No loss of hearing. No double vision. No pain. No discharge. ENT AND RESPIRATORY: No wheeze. No sore throat. No change in voice. No hearing loss. No nose bleed. No cough. No trouble breathing through nose. No shortness of breath. No coughing up blood. No epistaxis. CARDIOVASCULAR: No chest pain. No dizziness. No irregular heartbeat. No leg edema. No pain in legs while walking. No palpitations. No shortness of breath. DERMATOLOGIC: No acne. No hives. No laceration. No mole. No rash. ENDOCRINE: No cold intolerance. No diabetes. No fatigue. No hot flashes. No polydipsia. No polyuria. No urinating frequently. No weight loss. HEMATOLOGIC AND LYMPH: No fatigue. No easy bruising. GASTROENTEROLOGIC: No change in bowel habits. No indigestion. No frequent [place], [place] REPORT OF CONSULTATION NAME: CHRISTIAN HELLER UNIT #: [id number] ROOM: [facility] DOCTOR: NATHALIE GARCIA MD BIRTHDATE: [birth year] bloating. No vomiting blood. No abdominal cramping. No nausea. No heartburn. No vomiting. No abdominal pain. No dysphagia. No diarrhea. No constipation. No blood in stool. FEMALE REPRODUCTIVE: No vaginal itching. No difficulty urinating. No heavy periods. No dyspareunia. No sexually active. No dysmenorrhea. No pelvic pain. No breast pain. No nipple discharge. No abnormal vaginal discharge. No hot flashes. MUSCULOSKELETAL: No back pain. No muscle pain or weakness. No neck pain. No tingling/numbness. No swelling/bruising. No osteoporosis treatment. OPTHALMOLOGIC: No double vision. No diminished vision. No loss of vision. UROLOGIC: No dysuria. No frequent nighttime urination. No irregular periods. No pain with urination. No difficulty urinating. No blood in urine. No frequent urination. No urinary incontinence. NEUROLOGIC: No loss of sensation in specific body area. No vertigo. No burning pain in feet. No trouble with balance. No trouble with coordination. No loss of consciousness. No loss of feeling/power. No confusion. No headache. No tingling/numbness. PSYCHOLOGIC: No tinnitus. No headaches. No shortness of breath. No weight decrease. No nausea. No vomiting. No abdominal discomfort. No constipation. No diarrhea. No depression. No anxiety. PHYSICAL EXAMINATION: GENERAL: Pleasant woman, in no apparent distress. VITAL SIGNS: Stable. She is afebrile. HEENT: Oral mucosa appears intact. The external ears are normal in appearance. Nares are patent without lesions, exudates, erythema, or inflammation. Tongue is symmetrical. Uvula is midline. NECK AND THYROID: Neck supple without palpable masses. Trachea is midline. No thyromegaly. No carotid bruit or JVD. BREASTS: Normal. Nipples unremarkable. No drainage. No lumps felt on either side. HEART: Normal S1, S2, without significant murmur, rub, or gallop. LUNGS: Clear to auscultation and percussion with good air entry bilaterally. The patient is breathing easily without the use of accessory muscles. Diaphragmatic excursions are intact. ABDOMEN: No costovertebral angle tenderness. Soft. No organomegaly or masses. Nontender. No hernias present. Liver and spleen are not palpable. LYMPHATIC: No adenopathy noted in the cervical, supraclavicular, axillary, or inguinal regions. NEUROLGIC: Nonfocal. Oriented to person, place, and time. MENTAL STATUS: Appropriate for mood and affect. PERIPHERAL PULSES: No varicosities. Femoral and pedal pulses are palpable. EXTREMITIES: Without cyanosis, clubbing, or edema. No gross anomalies. LABORATORY DATA: Sodium 127, potassium 4.2, chloride 90, bicarbonate 29, BUN 43. EGFR is 1326, AST 34, ALT less than 6, alkaline phosphatase 79. Hemoglobin from 06/16/2017 was 6.4, hematocrit 21.4. From 06/18/2017, white count of 6.5, hemoglobin 8.7, hematocrit 27.6, MCV 74.6, platelet count 204,000. ASSESSMENT: [place], [place] REPORT OF CONSULTATION NAME: CHRISTIAN HELLER UNIT #: [id number] ROOM: 412 DOCTOR: NATHALIE GARCIA MD BIRTHDATE: [birth year] 1. Progressive anemia of unknown etiology, status post 2 units of packed RBC. 2. Microcytosis. 3. Chronic kidney disease stage 3. 4. History of systolic congestive heart failure. PLAN: We will initiate workup for anemia. In the meantime, I will review the records from my office as to what treatment was rendered at that time when she saw me. Depending upon that further intervention will be done. Blood work has been ordered, we will wait for that to come back. We will discuss with Dr. Lindsay once things come back. I had a detailed discussion with the patient about it, who seemed to understand. Ample time was given for the patient to ask me questions. We will follow. Thanks for consulting and letting me participate in the care of this interesting patient. NATHALIE GARCIA MD CM:CONSTR:REPORT OF CONSULTATION 0825 06/18/17 0943 interface
--- NOTE | ~2017-06-16 | EKG ---
[place], [place] ELECTROCARDIOGRAM REPORT NAME: CHRISTIAN HELLER UNIT #: [id number] ROOM: 412 DOCTOR: KANG LYNN MD BIRTHDATE: [birth year] DOS: 06/16/2017 TIME: 1854 hours. AV sequential with unipolar ventricular pacing, rate is 60 beats per minute. KANG LYNN MD CM:EKGRPT:ELECTROCARDIOGRAM REPORT [id number] KANG LYNN MD
[2017-06-16 18:37] VITALS: BP 100/40
[2017-06-16 18:45] VITALS: BP 94/36
[2017-06-16 18:52] LABS: BASO % 0.2 % (0.0-1.0); EOS # 0.1 10*3/uL (0.0-0.4); EOS % 1.1 % (1.0-4.0); HEMATOCRIT 21.4 % (37.0-47.0); HEMOGLOBIN 6.4 g/dl (12.0-16.0); LYMPH # 0.9 10*3/uL (1.3-4.4); LYMPH % 17.8 % (27.0-41.0); MEAN CELL VOLUME 70.9 fl (81.0-99.0); MEAN CORPUSCULAR HGB 21.2 pg (27.0-31.0); MEAN CORPUSCULAR HGB CONC 29.9 g/dl (33.0-37.0); MEAN PLATELET VOLUME 9.8 fl (9.6-12.3); MONO # 0.5 10*3/uL (0.1-1.0); MONO % 10.3 % (3.0-9.0); NEUT # 3.7 10*3/uL (2.3-7.9); NEUT % 70.2 % (47.0-73.0); PLATELET COUNT AUTOMATED 214 10*3/uL (130-400); RED BLOOD COUNT 3.02 10*6/uL (4.10-5.10); RED CELL DISTRI WIDTH 17.1 % (0-14.5); WHITE BLOOD COUNT 5.2 10*3/uL (4.8-10.8)
[2017-06-16 18:58] VITALS: BP 107/47
[2017-06-16 19:09] LABS: ALBUMIN 2.9 gm/dl (3.1-4.5); ALKALINE PHOSPHATASE 79 U/L (45-117); BILIRUBIN, TOTAL 0.2 mg/dl (0.2-1.0); BUN 43 mg/dl (7-24); CARBON DIOXIDE 29 mmol/L (21-32); CHLORIDE 90 mmol/L (98-107); EST GLOM FILT AFRICAN AMERICAN 31 ml/min; GLUCOSE 106 mg/dL (65-99); POTASSIUM 4.2 mmol/L (3.5-5.1); SGOT/AST 34 IU/L (3-35); SODIUM 127 mmol/L (136-145); TOTAL PROTEIN 6.8 gm/dL (6.4-8.2)
[2017-06-16 19:12] LABS: SGPT/ALT < 6 U/L (12-78)
[2017-06-16 19:36] VITALS: BP 98/50
[2017-06-16 20:13] LABS: BILIRUBIN NEGATIVE (NEGATIVE); BLOOD NEGATIVE (NEGATIVE); CLARITY SL CLOUDY (CLEAR); COLOR YELLOW (YELLOW); GLUCOSE NEGATIVE (NEGATIVE); KETONE NEGATIVE (NEGATIVE); LEUKO ESTERASE TRACE (NEGATIVE); NITRITE NEGATIVE (NEGATIVE); PROTEIN NEGATIVE (NEGATIVE); SPECIFIC GRAVITY <= 1.005 (1.005-1.030); UROBILINOGEN 0.2 E.U./dl (0.2-1.0)
[2017-06-16 20:32] LABS: BACTERIA 3+
[2017-06-16 20:40] VITALS: BP 150/55
[2017-06-16] MEDS ORDERED: BUMETANIDE2 MG PO (21:51)
[2017-06-16 22:56] LABS: BASO % 0.2 % (0.0-1.0); EOS % 0.7 % (1.0-4.0); HEMATOCRIT 24.6 % (37.0-47.0); HEMOGLOBIN 7.4 g/dl (12.0-16.0); LYMPH # 1.3 10*3/uL (1.3-4.4); LYMPH % 22.1 % (27.0-41.0); MEAN CELL VOLUME 71.1 fl (81.0-99.0); MEAN CORPUSCULAR HGB 21.4 pg (27.0-31.0); MEAN CORPUSCULAR HGB CONC 30.1 g/dl (33.0-37.0); MEAN PLATELET VOLUME 9.7 fl (9.6-12.3); MONO # 0.5 10*3/uL (0.1-1.0); MONO % 7.8 % (3.0-9.0); NEUT # 4.2 10*3/uL (2.3-7.9); NEUT % 68.5 % (47.0-73.0); PLATELET COUNT AUTOMATED 221 10*3/uL (130-400); RED BLOOD COUNT 3.46 10*6/uL (4.10-5.10); RED CELL DISTRI WIDTH 16.9 % (0-14.5); WHITE BLOOD COUNT 6.1 10*3/uL (4.8-10.8)
[2017-06-17] VITALS (19 sets, daily range): BP systolic 90–159; BP diastolic 40–91
[2017-06-17 06:12] LABS: BASO % 0.2 % (0.0-1.0); EOS # 0.1 10*3/uL (0.0-0.4); EOS % 0.9 % (1.0-4.0); HEMATOCRIT 21.3 % (37.0-47.0); HEMOGLOBIN 6.5 g/dl (12.0-16.0); LYMPH # 1.4 10*3/uL (1.3-4.4); LYMPH % 27.2 % (27.0-41.0); MEAN CELL VOLUME 71.2 fl (81.0-99.0); MEAN CORPUSCULAR HGB 21.7 pg (27.0-31.0); MEAN CORPUSCULAR HGB CONC 30.5 g/dl (33.0-37.0); MEAN PLATELET VOLUME 10.1 fl (9.6-12.3); MONO # 0.6 10*3/uL (0.1-1.0); MONO % 11.5 % (3.0-9.0); NEUT # 3.2 10*3/uL (2.3-7.9); NEUT % 59.8 % (47.0-73.0); PLATELET COUNT AUTOMATED 232 10*3/uL (130-400); RED BLOOD COUNT 2.99 10*6/uL (4.10-5.10); WHITE BLOOD COUNT 5.3 10*3/uL (4.8-10.8)
[2017-06-17 06:43] LABS: HEMOGLOBIN A1c 7.2 % (4.8-5.6)
[2017-06-17 06:47] LABS: POTASSIUM 3.9 mmol/L (3.5-5.1)
[2017-06-17 06:53] LABS: FREE T4 0.9 ng/dl (0.76-1.46); THYROID STIM HORMONE (HS) 1.41 uIU/ml (0.358-4.75)
[2017-06-17 06:54] LABS: PROTHROMBIN TIME 10.5 SECONDS (9.0-12.4)
[2017-06-17 07:31] LABS: FOLIC ACID 13.38 ng/mL (>5.38); VITAMIN D, 25-HYDROXY 45.8 ng/mL (30-100)
[2017-06-17 13:52] LABS: HEMATOCRIT 24.4 % (37.0-47.0); HEMOGLOBIN 7.6 g/dl (12.0-16.0)
[2017-06-17 19:26] LABS: HEMATOCRIT 27.9 % (37.0-47.0); HEMOGLOBIN 8.7 g/dl (12.0-16.0)
[2017-06-18] VITALS: BP 132/55
[2017-06-18 05:53] LABS: POTASSIUM 3.9 mmol/L (3.5-5.1)
[2017-06-18 06:00] LABS: THYROID STIM HORMONE (HS) 2.35 uIU/ml (0.358-4.75)
[2017-06-18 06:06] LABS: BASO % 0.3 % (0.0-1.0); EOS # 0.1 10*3/uL (0.0-0.4); EOS % 2.1 % (1.0-4.0); HEMATOCRIT 27.6 % (37.0-47.0); HEMOGLOBIN 8.7 g/dl (12.0-16.0); LYMPH # 1.4 10*3/uL (1.3-4.4); LYMPH % 22.1 % (27.0-41.0); MEAN CORPUSCULAR HGB 23.5 pg (27.0-31.0); MEAN CORPUSCULAR HGB CONC 31.5 g/dl (33.0-37.0); MEAN PLATELET VOLUME 10.2 fl (9.6-12.3); MONO # 0.9 10*3/uL (0.1-1.0); MONO % 13.8 % (3.0-9.0); NEUT % 61.4 % (47.0-73.0); PLATELET COUNT AUTOMATED 204 10*3/uL (130-400); RED CELL DISTRI WIDTH 17.8 % (0-14.5); WHITE BLOOD COUNT 6.5 10*3/uL (4.8-10.8)
[2017-06-18 06:30] LABS: MEAN CELL VOLUME 74.6 fl (81.0-99.0)
[2017-06-18 08:00] VITALS: BP 116/47
[2017-06-18 08:25] LABS: FERRITIN 67.2 ng/mL (10.0-291.0)
[2017-06-18 08:26] LABS: FOLIC ACID 13.02 ng/mL (>5.38)
[2017-06-18 12:00] VITALS: BP 126/44
== END 2017-06-18 14:56 | disposition home or self-care (01) | DRG 637 ==
LOC: ED 18:37 → EDHOLD 19:51 → 4E 19:51
PROVIDERS: Emergency Medicine; Internal Medicine; Internal Medicine Hematology & Oncology; Internal Medicine Nephrology
PROC: 30233N1 Transfusion of Nonautologous Red Blood Cells into Peripheral Vein, Percutaneous Approach (ICD-10-PCS; principal; 2017-06-17)
DX: E11.649 Type 2 diabetes mellitus with hypoglycemia without coma (principal); G93.41 Metabolic encephalopathy; N17.0 Acute kidney failure with tubular necrosis; J96.10 Chronic respiratory failure, unspecified whether with hypoxia or hypercapnia; I13.0 Hypertensive heart and chronic kidney disease with heart failure and stage 1 through stage 4 chronic kidney disease, or unspecified chronic kidney disease; E22.2 Syndrome of inappropriate secretion of antidiuretic hormone; E44.0 Moderate protein-calorie malnutrition; I95.9 Hypotension, unspecified; I50.22 Chronic systolic (congestive) heart failure; E78.00 Pure hypercholesterolemia, unspecified; G89.29 Other chronic pain; M54.9 Dorsalgia, unspecified; E11.51 Type 2 diabetes mellitus with diabetic peripheral angiopathy without gangrene; F03.90 Unspecified dementia, unspecified severity, without behavioral disturbance, psychotic disturbance, mood disturbance, and anxiety; D46.4 Refractory anemia, unspecified; E87.8 Other disorders of electrolyte and fluid balance, not elsewhere classified; N18.3 Chronic kidney disease, stage 3 (moderate); E11.22 Type 2 diabetes mellitus with diabetic chronic kidney disease; I25.10 Atherosclerotic heart disease of native coronary artery without angina pectoris; J44.9 Chronic obstructive pulmonary disease, unspecified; D50.9 Iron deficiency anemia, unspecified; E78.1 Pure hyperglyceridemia; R82.71 Bacteriuria; D72.810 Lymphocytopenia; B19.20 Unspecified viral hepatitis C without hepatic coma; E78.5 Hyperlipidemia, unspecified; E11.42 Type 2 diabetes mellitus with diabetic polyneuropathy; I25.2 Old myocardial infarction; Z87.891 Personal history of nicotine dependence; Z95.1 Presence of aortocoronary bypass graft; Z95.820 Peripheral vascular angioplasty status with implants and grafts; Z90.710 Acquired absence of both cervix and uterus; Z95.810 Presence of automatic (implantable) cardiac defibrillator; Z79.4 Long term (current) use of insulin; Z79.82 Long term (current) use of aspirin; Z79.899 Other long term (current) drug therapy; Z95.5 Presence of coronary angioplasty implant and graft; Z98.51 Tubal ligation status; Z82.49 Family history of ischemic heart disease and other diseases of the circulatory system; Z84.1 Family history of disorders of kidney and ureter; Z80.1 Family history of malignant neoplasm of trachea, bronchus and lung; Z82.3 Family history of stroke; Z83.6 Family history of other diseases of the respiratory system

== ENCOUNTER → 2017-07-21 | Outpatient (CLI) | payer OTHER ==
[2017-07-21 13:09] LABS: BASO % 0.2 % (0.0-1.0); EOS # 0.2 10*3/uL (0.0-0.4); EOS % 2.6 % (1.0-4.0); HEMATOCRIT 23.6 % (37.0-47.0); HEMOGLOBIN 7.2 g/dl (12.0-16.0); LYMPH # 1.3 10*3/uL (1.3-4.4); LYMPH % 21.9 % (27.0-41.0); MEAN CELL VOLUME 69.4 fl (81.0-99.0); MEAN CORPUSCULAR HGB 21.2 pg (27.0-31.0); MEAN CORPUSCULAR HGB CONC 30.5 g/dl (33.0-37.0); MEAN PLATELET VOLUME 9.8 fl (9.6-12.3); MONO # 0.8 10*3/uL (0.1-1.0); MONO % 13.4 % (3.0-9.0); NEUT # 3.6 10*3/uL (2.3-7.9); NEUT % 61.6 % (47.0-73.0); PLATELET COUNT AUTOMATED 233 10*3/uL (130-400); RED CELL DISTRI WIDTH 18.1 % (0-14.5); WHITE BLOOD COUNT 5.9 10*3/uL (4.8-10.8)
== END | disposition home or self-care (01) ==
LOC: LAB 12:19
PROVIDERS: Internal Medicine Hematology & Oncology
DX: N18.3 Chronic kidney disease, stage 3 (moderate) (principal); D64.9 Anemia, unspecified

== ENCOUNTER → 2017-07-29 | Outpatient (CLI) | payer OTHER ==
[2017-07-28 15:15] LABS: BASO % 0.4 % (0.0-1.0); EOS # 0.3 10*3/uL (0.0-0.4); HEMATOCRIT 26.6 % (37.0-47.0); HEMOGLOBIN 7.8 g/dl (12.0-16.0); LYMPH # 1.4 10*3/uL (1.3-4.4); MEAN CELL VOLUME 71.5 fl (81.0-99.0); MEAN CORPUSCULAR HGB CONC 29.3 g/dl (33.0-37.0); MEAN PLATELET VOLUME 9.4 fl (9.6-12.3); MONO # 0.5 10*3/uL (0.1-1.0); MONO % 9.1 % (3.0-9.0); NEUT # 3.4 10*3/uL (2.3-7.9); NEUT % 60.1 % (47.0-73.0); PLATELET COUNT AUTOMATED 241 10*3/uL (130-400); RED BLOOD COUNT 3.72 10*6/uL (4.10-5.10); RED CELL DISTRI WIDTH 18.9 % (0-14.5); WHITE BLOOD COUNT 5.7 10*3/uL (4.8-10.8)
--- NOTE | 2017-07-29 16:30 | NUR ---
PT ARRIVES TO FLOOR. VSS. IN ROOM 415-2 TO RECEIVE BLOOD PER ORDERS FROM DR. GARCIA. MENU PROVIDED TO PATIENT. DINNER ORDERED. LUNGS DIM. PT ALERT AND ORIENTED. AT BEDSIDE.
--- NOTE | 2017-07-29 16:45 | NUR ---
IV STARTED IN RIGHT ARM
[2017-07-29 17:05] VITALS: BP 150/50
--- NOTE | 2017-07-29 17:05 | NUR ---
Informed consent obtained from patient for Blood transfussion by Dr. GARCIA. Patient identified by arm band. Vital signs recorded. Blood unit number verified by 2 R.N.'s. I.V. site satisfactory. Unit 1 started at a KVO rate with Normal Saline. ADEEL PAEZ
[2017-07-29 17:20] VITALS: BP 144/61
[2017-07-29 17:45] VITALS: BP 152/65
[2017-07-29 18:15] VITALS: BP 157/59
[2017-07-29 18:50] VITALS: BP 148/72
== END | disposition home or self-care (01) ==
LOC: TRNFUSION 02:27
PROVIDERS: Internal Medicine Hematology & Oncology
DX: N18.3 Chronic kidney disease, stage 3 (moderate) (principal); D50.9 Iron deficiency anemia, unspecified; D46.1 Refractory anemia with ring sideroblasts

== ENCOUNTER → 2017-08-27 | Outpatient (CLI) | payer OTHER | END | disposition home or self-care (01) | LOC: WOUNDCARE 00:51 → US 00:51 → WOUNDCARE 08:30 | DX: I70.203 Unspecified atherosclerosis of native arteries of extremities, bilateral legs (principal); I96 Gangrene, not elsewhere classified ==

== ENCOUNTER → 2017-09-01 | Outpatient (CLI) | payer OTHER | END | disposition home or self-care (01) | LOC: WOUNDCARE 02:34 | DX: E11.621 Type 2 diabetes mellitus with foot ulcer (principal); L97.411 Non-pressure chronic ulcer of right heel and midfoot limited to breakdown of skin; L97.421 Non-pressure chronic ulcer of left heel and midfoot limited to breakdown of skin; L89.629 Pressure ulcer of left heel, unspecified stage; L89.619 Pressure ulcer of right heel, unspecified stage; E11.51 Type 2 diabetes mellitus with diabetic peripheral angiopathy without gangrene; J44.9 Chronic obstructive pulmonary disease, unspecified; I10 Essential (primary) hypertension; E78.5 Hyperlipidemia, unspecified; I25.10 Atherosclerotic heart disease of native coronary artery without angina pectoris; I11.0 Hypertensive heart disease with heart failure; I50.20 Unspecified systolic (congestive) heart failure; Z87.891 Personal history of nicotine dependence ==

== ENCOUNTER → 2017-09-07 | Outpatient (CLI) | payer OTHER ==
[2017-09-07 16:22] LABS: BASO % 0.4 % (0.0-1.0); EOS # 0.3 10*3/uL (0.0-0.4); EOS % 3.3 % (1.0-4.0); HEMATOCRIT 26.7 % (37.0-47.0); HEMOGLOBIN 8.2 g/dl (12.0-16.0); LYMPH # 2.2 10*3/uL (1.3-4.4); LYMPH % 23.9 % (27.0-41.0); MEAN CELL VOLUME 69.2 fl (81.0-99.0); MEAN CORPUSCULAR HGB 21.2 pg (27.0-31.0); MEAN CORPUSCULAR HGB CONC 30.7 g/dl (33.0-37.0); MEAN PLATELET VOLUME 9.8 fl (9.6-12.3); MONO # 0.9 10*3/uL (0.1-1.0); MONO % 9.7 % (3.0-9.0); NEUT # 5.7 10*3/uL (2.3-7.9); NEUT % 62.4 % (47.0-73.0); PLATELET COUNT AUTOMATED 232 10*3/uL (130-400); RED BLOOD COUNT 3.86 10*6/uL (4.10-5.10); RED CELL DISTRI WIDTH 18.7 % (0-14.5); WHITE BLOOD COUNT 9.2 10*3/uL (4.8-10.8)
== END | disposition home or self-care (01) ==
LOC: LAB 15:33
PROVIDERS: Internal Medicine Hematology & Oncology
DX: N18.3 Chronic kidney disease, stage 3 (moderate) (principal); D63.1 Anemia in chronic kidney disease

== ENCOUNTER → 2017-09-08 | Outpatient (CLI) | payer OTHER | END | disposition home or self-care (01) | LOC: WOUNDCARE 01:46 | DX: E11.621 Type 2 diabetes mellitus with foot ulcer (principal); L97.411 Non-pressure chronic ulcer of right heel and midfoot limited to breakdown of skin; L97.521 Non-pressure chronic ulcer of other part of left foot limited to breakdown of skin; L89.620 Pressure ulcer of left heel, unstageable; L89.619 Pressure ulcer of right heel, unspecified stage; L97.421 Non-pressure chronic ulcer of left heel and midfoot limited to breakdown of skin; E11.51 Type 2 diabetes mellitus with diabetic peripheral angiopathy without gangrene; J44.9 Chronic obstructive pulmonary disease, unspecified; E78.5 Hyperlipidemia, unspecified; I25.10 Atherosclerotic heart disease of native coronary artery without angina pectoris; I11.0 Hypertensive heart disease with heart failure; I50.22 Chronic systolic (congestive) heart failure; Z87.891 Personal history of nicotine dependence ==

== ENCOUNTER → 2017-09-15 | Outpatient (CLI) | payer OTHER ==
--- NOTE | 2017-09-15 13:30 | NUR ---
PT HERE FOR CATHFLO TO [facility] [place] SITE ALREADY ACCESSED BY RN AT DR GARCIA OFFICE. ATTEMPTS FOR BLOOD RETURN UNSUCESSFUL. FLUSH EASILY WITHOUT SWELLING. WITH PT. PELON MOREIRA RN
--- NOTE | 2017-09-15 13:35 | NUR ---
CATHFLO TO MED[facility] DWELLING ORDERED. PELON MOREIRA RN
--- NOTE | 2017-09-15 14:15 | NUR ---
ATTEMPT TO ASPIRATE BLOOD FROM MEDIPORT AFTER CATHFLO SUCESSFUL. WASTE TAKEN FROM MEDIPORT. CBC/DIFF SENT TO MAIN LAB. NONCORING NEEDLE REMOVED AFTER FLUSHED WITH HEPARIN. SITE CLEANED WITH CHOLRAPREP AND DRESSING APPLIED. PELON MOREIRA RN
[2017-09-15 14:37] LABS: BASO % 0.3 % (0.0-1.0); EOS # 0.2 10*3/uL (0.0-0.4); EOS % 2.1 % (1.0-4.0); HEMOGLOBIN 7.7 g/dl (12.0-16.0); LYMPH # 1.7 10*3/uL (1.3-4.4); LYMPH % 19.4 % (27.0-41.0); MEAN CELL VOLUME 68.6 fl (81.0-99.0); MEAN CORPUSCULAR HGB 20.3 pg (27.0-31.0); MEAN CORPUSCULAR HGB CONC 29.6 g/dl (33.0-37.0); MEAN PLATELET VOLUME 9.6 fl (9.6-12.3); MONO # 0.8 10*3/uL (0.1-1.0); MONO % 9.1 % (3.0-9.0); NEUT % 68.5 % (47.0-73.0); PLATELET COUNT AUTOMATED 206 10*3/uL (130-400); RED BLOOD COUNT 3.79 10*6/uL (4.10-5.10); RED CELL DISTRI WIDTH 18.3 % (0-14.5); WHITE BLOOD COUNT 8.8 10*3/uL (4.8-10.8)
== END | disposition home or self-care (01) ==
LOC: WOUNDCARE 03:23 → LAB 03:23 → WOUNDCARE 09:23
PROVIDERS: Internal Medicine Hematology & Oncology
DX: N18.3 Chronic kidney disease, stage 3 (moderate) (principal); D64.9 Anemia, unspecified; D46.1 Refractory anemia with ring sideroblasts; E10.621 Type 1 diabetes mellitus with foot ulcer; I73.9 Peripheral vascular disease, unspecified

== ENCOUNTER 2017-09-22 16:32 | Inpatient (IN) | payer OTHER ==
[2017-09-22] VITALS (10 sets, daily range): BP systolic 100–151; BP diastolic 42–62
[~2017-09-22] VITALS: Ht 154.9 cm; Wt 79.4 kg
--- NOTE | ~2017-09-22 | CON ---
[place], [place] REPORT OF CONSULTATION NAME: CHRISTIAN HELLER UNIT #: [id number] ROOM: 401 DOCTOR: NATHALIE GARCIA MD BIRTHDATE: [birth year] DOS: 09/22/2017 HISTORY OF PRESENT ILLNESS: This is a pleasant woman who was at the wound clinic and was sent to the ER because of nonhealing wound on the foot. She was also seen by me this morning and was found to have a drop in hemoglobin and hematocrit and was advised to get 2 units of blood, which they were trying to get it and consulted for further evaluation and management. MEDICATIONS: Loperamide, Symbicort, Abilify, insulin, vitamin D3, bumetanide, carbidopa and levodopa, aspirin, Parafon Forte, albuterol sulfate, hydroxyzine pamoate, gemfibrozil, ranitidine, hydrocodone, gabapentin, albuterol, carvedilol, lisinopril, metoprolol, oxygen, nitroglycerin. PAST MEDICAL HISTORY: Significant for acute on chronic renal failure, iron deficiency anemia, coronary artery disease, chronic low back pain, chronic respiratory failure, chronic kidney disease, COPD, dementia, hepatitis C, history of myocardial infarction, hypertension, hyperlipidemia, hypertriglyceridemia, hyponatremia; metabolic encephalopathy, resolved. Pacemaker, peripheral neuropathy, chronic obstructive pulmonary disease, protein calorie malnutrition, sciatica, severe anemia, type 2 diabetes. PAST SURGICAL HISTORY: Femoropopliteal bypass, left leg. History of left-sided carotid endarterectomy, history of absence of breast, history of CABG, hysterectomy and combination of internal cardiac defibrillator and pacemaker. The previous surgeries; CABG in 1999, hysterectomy, tubal ligation, pacemaker, defibrillator, fem-pop bypass, cholecystectomy, bronchoscopy. SOCIAL HISTORY: No smoking or drinking; was a former smoker 80+ pack history. No drinking or drug abuse. FAMILY HISTORY: Father'; history of bone disease, hypertension, CHF, coronary artery disease, at age 60, cause hypertension complications. Mother; history of lung cancer, hypertension, CHF, emphysema, thyroid disease. Family history of myocardial infarction, hypertension, cerebrovascular accident. REVIEW OF SYSTEMS: CONSTITUTIONAL: No chills. No fatigue. No fever. No loss of appetite. No night sweats. No weakness. No weight loss. HEENT: No trouble swallowing. No loss of smell. No loss of hearing. No double vision. No pain. No discharge. ENT AND RESPIRATORY: No wheeze. No sore throat. No change in voice. No hearing loss. No nose bleed. No cough. No trouble breathing through nose. No shortness of breath. No coughing up blood. No epistaxis. CARDIOVASCULAR: No chest pain. No dizziness. No irregular heartbeat. No leg edema. No pain in legs while walking. No palpitations. No shortness of breath. DERMATOLOGIC: No acne. No hives. No laceration. No mole. No rash. ENDOCRINE: No cold intolerance. No diabetes. No fatigue. No hot flashes. No polydipsia. No polyuria. No urinating frequently. No weight loss. [place], [place] REPORT OF CONSULTATION NAME: CHRISTIAN HELLER UNIT #: [id number] ROOM: [facility] DOCTOR: NATHALIE GARCIA MD BIRTHDATE: [birth year] HEMATOLOGIC AND LYMPH: No fatigue. No easy bruising. GASTROENTEROLOGIC: No change in bowel habits. No indigestion. No frequent bloating. No vomiting blood. No abdominal cramping. No nausea. No heartburn. No vomiting. No abdominal pain. No dysphagia. No diarrhea. No constipation. No blood in stool. FEMALE REPRODUCTIVE: No vaginal itching. No difficulty urinating. No heavy periods. No dyspareunia. No sexually active. No dysmenorrhea. No pelvic pain. No breast pain. No nipple discharge. No abnormal vaginal discharge. No hot flashes. MUSCULOSKELETAL: No back pain. No muscle pain or weakness. No neck pain. No tingling/numbness. No swelling/bruising. No osteoporosis treatment. OPHTHALMOLOGIC: No double vision. No diminished vision. No loss of vision. UROLOGIC: No dysuria. No frequent nighttime urination. No irregular periods. No pain with urination. No difficulty urinating. No blood in urine. No frequent urination. No urinary incontinence. NEUROLOGIC: No loss of sensation in specific body area. No vertigo. No burning pain in feet. No trouble with balance. No trouble with coordination. No loss of consciousness. No loss of feeling/power. No confusion. No headache. No tingling/numbness. PSYCHOLOGIC: No tinnitus. No headaches. No shortness of breath. No weight decrease. No nausea. No vomiting. No abdominal discomfort. No constipation. No diarrhea. No depression. No anxiety. PHYSICAL EXAMINATION: GENERAL: She is a pleasant woman in no apparent distress. VITAL SIGNS: Stable. She is afebrile. GENERAL: General appearance: Pleasant patient, no apparent distress. HEENT: Oral mucosa appears intact. The external ears are normal in appearance. Nares are patent without lesions, exudates, erythema, or inflammation. Tongue is symmetrical. Uvula is midline. NECK AND THYROID: Neck supple without palpable masses. Trachea is midline. No thyromegaly. No carotid bruit or JVD. BREASTS: Normal. Nipples unremarkable. No drainage. No lumps felt on either side. HEART: Normal S1, S2, without significant murmur, rub, or gallop. LUNGS: Clear to auscultation and percussion with good air entry bilaterally. The patient is breathing easily without the use of accessory muscles. Diaphragmatic excursions are intact. ABDOMEN: No costovertebral angle tenderness. Soft. No organomegaly or masses. Nontender. No hernias present. Liver and spleen are not palpable. LYMPHATIC: No adenopathy noted in the cervical, supraclavicular, axillary, or inguinal regions. NEUROLOGIC: Nonfocal. Oriented to person, place, and time. MENTAL STATUS: Appropriate for mood and affect. PERIPHERAL PULSES: No varicosities. Femoral and pedal pulses are palpable. EXTREMITIES: The left lower extremity is currently wrapped and bandaged, is dry. LABORATORY DATA: Sodium 131, potassium 4.1, chloride 95, bicarbonate 29, BUN 28, EGFR is 29. White count of 3.2, hemoglobin 7.7, hematocrit 25.8, MCV 66.7, [place], [place] REPORT OF CONSULTATION NAME: CHRISTIAN HELLER UNIT #: [id number] ROOM: [facility] DOCTOR: NATHALIE GARCIA MD BIRTHDATE: [birth year] platelet count of 245. RADIOLOGY: The left foot showed no evidence of acute bony injury to the foot, no pain, radiographic evidence of osteomyelitis. ASSESSMENT: 1. Nonhealing ulcer of the heel. 2. Iron deficiency anemia. 3. Microcytosis secondary to iron deficiency. PLAN: We will give her a couple of units of packed RBC and follow the counts closely. In the meantime, her nonhealing ulcer of the heel is being addressed. We will wait for her overall condition to improve, depending on this further intervention. I had a detailed discussion with , I wanted him to decide. Ample time was given to the patient to ask questions. We will follow. Thanks for consulting and me letting participate in the care of this patient. NATHALIE GARCIA MD CM:CONSTR:REPORT OF CONSULTATION 49 09/23/17 0503 interface
--- NOTE | ~2017-09-22 | EKG ---
[place], [place] ELECTROCARDIOGRAM REPORT NAME: CHRISTIAN HELLER UNIT #: [id number] ROOM: 401 DOCTOR: KANG LYNN MD BIRTHDATE: [birth year] DOS: 09/22/2017 TIME: 1731 hours. 1. Normal sinus rhythm at 67 beats per minute. 2. Pacemaker is present with atrial sensing and unipolar ventricular pacing; rate is 67 beats per minute. KANG LYNN MD CM:EKGRPT:ELECTROCARDIOGRAM REPORT [id number] KANG LYNN MD
--- NOTE | 2017-09-22 09:16 | NUR ---
BLOOD DRAWN FROM PORT FOR LABS ORDERED USING ASEPTIC TECHNIQUE
[2017-09-22 09:27] LABS: BASO % 0.2 % (0.0-1.0); EOS # 0.2 10*3/uL (0.0-0.4); EOS % 2.2 % (1.0-4.0); HEMOGLOBIN 7.6 g/dl (12.0-16.0); LYMPH # 1.8 10*3/uL (1.3-4.4); LYMPH % 19.9 % (27.0-41.0); MEAN CELL VOLUME 66.5 fl (81.0-99.0); MEAN CORPUSCULAR HGB 20.2 pg (27.0-31.0); MEAN CORPUSCULAR HGB CONC 30.4 g/dl (33.0-37.0); MEAN PLATELET VOLUME 9.4 fl (9.6-12.3); MONO % 10.9 % (3.0-9.0); NEUT # 5.9 10*3/uL (2.3-7.9); NEUT % 66.1 % (47.0-73.0); PLATELET COUNT AUTOMATED 233 10*3/uL (130-400); RED BLOOD COUNT 3.76 10*6/uL (4.10-5.10); RED CELL DISTRI WIDTH 18.8 % (0-14.5)
--- NOTE | 2017-09-22 09:50 | NUR ---
PT WAS HERE AND BLOOD CONSENTS SIGNED. MEDICATIONS LIST UPDATED. PTS BLOOD IS NOT GOING TO BE READY TIL LATER TODAY OR TOMORROW. PTS ORDER IS WITH HER CHART. WE WILL CALL PT WHEN BLOOD IS AVAILABLE. PT IS LEAVING NOW.
--- NOTE | 2017-09-22 17:30 | NUR ---
PATIENT MEAL TRAY HAS BEEN ORDERED FOR PATIENT PER PATIENT REQUEST.
[2017-09-22 17:55] LABS: BILIRUBIN NEGATIVE (NEGATIVE); BLOOD 1+ (NEGATIVE); CLARITY SL CLOUDY (CLEAR); COLOR YELLOW (YELLOW); GLUCOSE NEGATIVE (NEGATIVE); KETONE NEGATIVE (NEGATIVE); LEUKO ESTERASE 1+ (NEGATIVE); NITRITE NEGATIVE (NEGATIVE); SPECIFIC GRAVITY <= 1.005 (1.005-1.030); UROBILINOGEN 0.2 E.U./dl (0.2-1.0)
[2017-09-22 17:58] LABS: BASO % 0.2 % (0.0-1.0); EOS # 0.2 10*3/uL (0.0-0.4); EOS % 1.8 % (1.0-4.0); HEMATOCRIT 25.8 % (37.0-47.0); HEMOGLOBIN 7.7 g/dl (12.0-16.0); LYMPH # 2.2 10*3/uL (1.3-4.4); LYMPH % 26.6 % (27.0-41.0); MEAN CELL VOLUME 66.7 fl (81.0-99.0); MEAN CORPUSCULAR HGB 19.9 pg (27.0-31.0); MEAN CORPUSCULAR HGB CONC 29.8 g/dl (33.0-37.0); MEAN PLATELET VOLUME 10.2 fl (9.6-12.3); MONO # 0.7 10*3/uL (0.1-1.0); MONO % 8.5 % (3.0-9.0); NEUT # 5.1 10*3/uL (2.3-7.9); NEUT % 62.4 % (47.0-73.0); PLATELET COUNT AUTOMATED 245 10*3/uL (130-400); RED BLOOD COUNT 3.87 10*6/uL (4.10-5.10); RED CELL DISTRI WIDTH 18.7 % (0-14.5); WHITE BLOOD COUNT 8.2 10*3/uL (4.8-10.8)
[2017-09-22 18:09] LABS: BACTERIA 3+
[2017-09-22 18:10] LABS: ACT PARTIAL THROMBO TIME 28.5 SECONDS (20.8-31.5)
[2017-09-22 18:12] LABS: ALBUMIN 2.8 gm/dl (3.1-4.5); ALKALINE PHOSPHATASE 123 U/L (45-117); BUN 28 mg/dl (7-24); CHLORIDE 95 mmol/L (98-107); CREATININE 1.77 mg/dL (0.55-1.02); LIPASE 57 U/L (73-393); POTASSIUM 4.1 mmol/L (3.5-5.1); SGOT/AST 25 IU/L (3-35); SODIUM 133 mmol/L (136-145)
[2017-09-22 18:13] LABS: SGPT/ALT < 6 U/L (12-78); TROPONIN I < 0.015 ng/ml (<0.045)
--- NOTE | 2017-09-22 18:30 | NUR ---
PATIENT EATING MEAL TRAY AT THIS TIME.
--- NOTE | 2017-09-22 18:57 | NUR ---
PATIENT BLOOD PRESSURE AUTOMATIC 88/50. CHECKED PATIENT BP MANUALLY 105/80. DR MENARD NOTIFIED.
--- NOTE | 2017-09-22 19:00 | NUR ---
REPORT GIVEN TO CELESTINE Ching RN AT THIS TIME.
--- NOTE | 2017-09-22 20:10 | NUR ---
Time: 2009 A 62 year old FEMALE admitted to 4E under services of DR. LUCIA RIVERA,LAURA. Pt. arrived via bed from ER. Chief complaint: INFECTION. JOHNNY DYER
--- NOTE | 2017-09-22 20:12 | NUR ---
PT WAS TO HAVE OUTPT BLOOD TRANSFUSION PER DR GARCIA TODAY. SPOKE TO DR GARCIA. PT TO HAVE 2 UNITS OF BLOOD WITH 20 MG IV LASIX BETWEEN. QUESTIONED ORDER FOR BENADRYL AND TYLENOL. PER DR GARCIA ASK PT IF SHE HAS HAD A PREVIOUS REACTION, IF YES, GIVE THESE MEDS, IF NO JUST GIVE LASIX.
--- NOTE | 2017-09-22 20:30 | NUR ---
MED REC UNABLE TO BE COMPLETED AT THIS TIME PT DOES NOT HAVE A LIST OF MEDS AND IS UNSURE OF MEDS WILL VERIFY WITH PHARMACY IN AM
--- NOTE | 2017-09-22 20:40 | NUR ---
PT REFUSING WOUND PICTURES AT THIS TIME.
--- NOTE | 2017-09-22 20:41 | NUR ---
DR MENARD MADE AWARE OF ODERS FROM DR GARCIA. ALSO MADE AWARE OF BP 100/42. NO ORDERS RECEIVED. MADE HER AWARE THAT PT REFUSED WOUND PICTURES AND MED REC UNABLE TO BE COMPLETED AT THIS TIME.
--- NOTE | 2017-09-22 21:30 | NUR ---
BLOOD TRANSFUSION INITIATED AT THIS TIME. PT TOLERATING WELL.
--- NOTE | 2017-09-22 23:00 | NUR ---
PER PATIENT, EARLIER TYLENOL EFFECTIVE
--- NOTE | 2017-09-22 23:58 | NUR ---
UNIT OF BLOOD COMPLETE AT THIS TIME. PT TOLERATED WELL.
[2017-09-23] VITALS (14 sets, daily range): BP systolic 125–184; BP diastolic 41–80
--- NOTE | 2017-09-23 00:30 | NUR ---
BLOOD TRANSFUSION INITIATED AT THIS TIME. TOLERATING WELL
--- NOTE | 2017-09-23 02:50 | NUR ---
BLOOD TRANSFUSION COMPLETE AT THIS TIME. PT TOLERATED WELL
--- NOTE | 2017-09-23 07:01 | NUR ---
MEDICATED WITH PRN TYLENOL FOR C/O LEFT FOOT PAIN. RATES 08/11
[2017-09-23 07:58] LABS: BASO % 0.3 % (0.0-1.0); EOS # 0.1 10*3/uL (0.0-0.4); EOS % 1.4 % (1.0-4.0); HEMATOCRIT 31.2 % (37.0-47.0); LYMPH # 1.3 10*3/uL (1.3-4.4); LYMPH % 13.7 % (27.0-41.0); MEAN CELL VOLUME 69.5 fl (81.0-99.0); MEAN CORPUSCULAR HGB 22.5 pg (27.0-31.0); MEAN CORPUSCULAR HGB CONC 32.4 g/dl (33.0-37.0); MEAN PLATELET VOLUME 9.8 fl (9.6-12.3); MONO # 1.1 10*3/uL (0.1-1.0); MONO % 11.6 % (3.0-9.0); NEUT # 6.8 10*3/uL (2.3-7.9); NEUT % 72.2 % (47.0-73.0); PLATELET COUNT AUTOMATED 201 10*3/uL (130-400); RED BLOOD COUNT 4.49 10*6/uL (4.10-5.10); RED CELL DISTRI WIDTH 19.9 % (0-14.5); WHITE BLOOD COUNT 9.4 10*3/uL (4.8-10.8)
[2017-09-23 07:59] LABS: HEMOGLOBIN 10.1 g/dl (12.0-16.0)
--- NOTE | 2017-09-23 08:00 | NUR ---
Disbursement Clerk in to talk to patient. Patient states lives at HOME with HER . There are 1 steps in the home. Physician: DR MYERS Pharmacy: [facility] services: [facility] Patient's level of ADLs: MODERATE ASSIST Patient has working utilities: YES DME: [employer]/[employer] Follow-up physician's appointment after d/c: PREFERS TO MAKE HER OWN APPT Does patient want to access PORTAL?: Discharge plan . [facility] ST[facility] DISCUSSED. PT REFUSES. WILL SEE HOW SHE PROGRESSES. MAY NEED IV ATB IF LEGS NOT HEALING WELL.
[2017-09-23 08:23] LABS: POTASSIUM 3.7 mmol/L (3.5-5.1)
[2017-09-23 08:26] LABS: CREATININE 1.51 mg/dL (0.55-1.02)
--- NOTE | 2017-09-23 08:30 | NUR ---
PT OFF FLOOR TO SURGERY.
[2017-09-23 09:44] LABS: VITAMIN D, 25-HYDROXY 39.9 ng/mL (30-100)
--- NOTE | 2017-09-23 10:21 | NUR ---
Unable to see patient's wounds at this time due to patient being off the floor for surgical debridement of the wounds.
[2017-09-23] MEDS ORDERED: LIPITOR40 MG PO (10:32)
--- NOTE | 2017-09-23 10:37 | NUR ---
PT'S MED LIST UPDATED AND VERIFIED BY LIST PROVIDED BY [facility].
--- NOTE | 2017-09-23 10:39 | NUR ---
PT NOT IN ROOM. SW LEFT COPY OF [facility] FOR PT ON BEDSIDE TABLE.
--- NOTE | 2017-09-23 10:41 | NUR ---
DR RIOS NOTIFIED THAT PT'S MED REC IS UPDATED AND VERIFIED.
--- NOTE | 2017-09-23 12:25 | NUR ---
PT RETURNED FROM SURGERY, VITALS STABLE. PT COMPLAINING OF 9/10 PAIN, DR MYERS IN TO SEE PT.
--- NOTE | 2017-09-23 12:42 | NUR ---
DR CANAS NOTIFIED THAT PT IS COMPLAINING OF PAIN AND WOULD LIKE SOMETHING FOR FOOT PAIN. ORDER RECEIVED FOR 1800 DIABETIC DIET AND 1 TIME DOSE OF DILAUDID.
--- NOTE | 2017-09-23 14:51 | NUR ---
DR STORY HERE AT THIS TIME, STATES HE WILL CHANGE WOUND VAC ON THURSDAY.
--- NOTE | 2017-09-23 15:09 | NUR ---
DR STORY HERE AT THIS TIME, ORDERS RECEIVED FOR IV DILAUDID 1 MG EVERY 4 HOURS PRN FOR PAIN.
--- NOTE | 2017-09-23 15:57 | NUR ---
PT MEDICATED WITH DILAUDID PER PRN ORDER FOR COMPLAINTS OF 9/10 PAIN ON LEFT HEEL. WILL MONITOR FOR EFFECTIVENESS.
--- NOTE | 2017-09-23 17:55 | NUR ---
DR DURÁN AWARE OF CARE MANAGEMENT TRANSFER TO HOSPITALIST SERVICE.
--- NOTE | 2017-09-23 22:18 | NUR ---
Medicated with Dilaudid for post op pain in left heel. Will monitor effectiveness. Call light within reach.
--- NOTE | 2017-09-23 23:20 | NUR ---
Patient resting quietly in bed with eyes closed. Dilaudid effective. Will continue to monitor. Call light within reach.
[2017-09-24] VITALS: BP 140/70
--- NOTE | 2017-09-24 00:50 | NUR ---
24 HR chart check completed.
[2017-09-24 08:00] VITALS: BP 144/50
--- NOTE | 2017-09-24 08:30 | NUR ---
PAIN 10/10 LEFT FOOT. DILAUDID GIVEN. SEE DEC. AGNIESZKA BURGER FOR EFFECTIVENESS
--- NOTE | 2017-09-24 08:30 | NUR ---
ASSESSMENT COMPLETE, VSS. PT STATES PAIN LEFT FOOT. WOUND VAC ON LEFT HEEL AT 125 SUCTION/ CONTINOUS, DRESSING DRY/INTACT. THERE IS A DRESSING TO LEFT ANKLE, PT STATES SMALL WOUND TO AREA, DOES NOT WANT DRESSING REMOVED FOR WOUND TO BE INSPECTED AT THIS TIME. BUTTOCKS REDDENED ENCOURAGED TO TURN. MEDIPORT TO LEFT SC AREA, DRESSING DRY/INTACT/FLUSHES EASILY.
--- NOTE | 2017-09-24 09:00 | NUR ---
PAIN MEDICAION EFFECTIVE
--- NOTE | 2017-09-24 10:00 | NUR ---
PT HAS KERLIX TO LEFT FOOT, DE JESUS SNOT WANT REMOVED TO INSPECT WOUND THAT PATIENT HAS ON HER LEFT HEEL PER HER. WOUND VAC TO LEFT HEEL. SKIN TEAR TO COCCYX AREA AND BUTTOCKS RED, CALAZIME APPLIED
[2017-09-24 12:00] VITALS: BP 152/48
--- NOTE | 2017-09-24 12:37 | NUR ---
DR. VÁZQUEZ IN TO SEE PATIENT. AWARE THAT WOUND VAC NOT FUNCTIONING PROPERLY. ORDER TO TAKE WOUND VAC OFF AND APPLY THERAHONEY, GAUZE AND KERLEX FOR NOW. HE WILL REASSESS TOMORROW. PT IS EATING AND REQUESTED THAT WOUND DRESSING BE CHANGED ONCE SHE IS DONE EATING.
--- NOTE | 2017-09-24 15:13 | NUR ---
PT STATES PAIN 7/10 IN LEFT FOOT. NORCO GIVEN. SEE MAR
--- NOTE | 2017-09-24 15:55 | NUR ---
PT COMPLAINS OF DIARRHEA, IMODIUM GIVEN. SEE MAR
[2017-09-24 16:00] VITALS: BP 143/69
--- NOTE | 2017-09-24 19:49 | NUR ---
Medicated with Dilaudid IV prn for post op pain in lt foot rating 6/10. Will monitor effectiveness. Call light within reach.
[2017-09-24 20:00] VITALS: BP 142/71
--- NOTE | 2017-09-24 20:50 | NUR ---
Patient resting quietly in bed with eyes closed. Dilaudid effective. Will continue to monitor. Call light within reach.
[2017-09-25] VITALS: BP 141/59
--- NOTE | 2017-09-25 00:53 | NUR ---
24 HR chart check completed.
--- NOTE | 2017-09-25 02:10 | NUR ---
Medicated with Dilaudid IV prn for post op lt foot pain rating 9/10. Will monitor effectiveness. Call light within reach.
--- NOTE | 2017-09-25 02:45 | NUR ---
Patient resting quietly in bed with eyes closed. Dilaudid effective. Will continue to monitor. Call light within reach.
[2017-09-25 07:21] LABS: BASO % 0.5 % (0.0-1.0); EOS # 0.2 10*3/uL (0.0-0.4); EOS % 3.4 % (1.0-4.0); HEMATOCRIT 29.3 % (37.0-47.0); HEMOGLOBIN 8.8 g/dl (12.0-16.0); LYMPH # 1.6 10*3/uL (1.3-4.4); LYMPH % 28.5 % (27.0-41.0); MEAN CELL VOLUME 71.1 fl (81.0-99.0); MEAN CORPUSCULAR HGB 21.4 pg (27.0-31.0); MEAN PLATELET VOLUME 10.1 fl (9.6-12.3); MONO # 0.6 10*3/uL (0.1-1.0); MONO % 10.5 % (3.0-9.0); NEUT # 3.2 10*3/uL (2.3-7.9); NEUT % 56.6 % (47.0-73.0); PLATELET COUNT AUTOMATED 186 10*3/uL (130-400); RED BLOOD COUNT 4.12 10*6/uL (4.10-5.10); RED CELL DISTRI WIDTH 20.4 % (0-14.5); WHITE BLOOD COUNT 5.6 10*3/uL (4.8-10.8)
[2017-09-25 07:37] LABS: POTASSIUM 3.7 mmol/L (3.5-5.1)
[2017-09-25 07:38] LABS: CREATININE 1.28 mg/dL (0.55-1.02)
--- NOTE | 2017-09-25 07:54 | NUR ---
Shift chart check completed.
[2017-09-25 08:00] VITALS: BP 116/36; BP 130/50
--- NOTE | 2017-09-25 11:22 | NUR ---
DILAUDID GIVEN.PT COMPLAINS OF PAIN 05/[address] STORY IN TO SEE PATIENT. MADE HIM AWARE THAT CRYSTAL WITH WOUND IS NOT AVAILABLE UNTIL THURSDAY. HE IS OKAY WITH PATIENT BEING SENT HOME TODAY WITH THERAHONEY CHANGE EVERY 2 DAYS AND COVER WITH GAUZE/KERLIX. HAVE PATIENT FOLLOW UP WITH WOUND CLINIC EITHER THURSDAY OR THURSDAY FOR PLACEMENT OF WOUND VAC. AT BEDSIDE WHEN DR. STORY IN ROOM, PATIENT AND UNDERSTAND INTSTRUCTIONS. DR. STORY WANTS A DRY DRESSING TO RIGHT HEEL, NO CHANGES. CONTINUE DESINEX TO EXCORATION OF SKIN FOLDS AND CALAZIME CREAM TO BUTTOCKS AREA NEEDED.
--- NOTE | 2017-09-25 11:51 | NUR ---
PHYSICAL THERAPY Pnt declined inpnt PT services at this time, but stated she may be agreeable to home health therapy on d/c. Order canceled. Maira Chopra, PT
[2017-09-25] MEDS ORDERED: DOXYCYCLINE100 M3 PO (14:48)
--- NOTE | 2017-09-25 16:21 | NUR ---
MEDIPORT FLUSHED WITH HEPARIN, D/C ACCESS. GAUZE OVER SITE. WOUND DRESSING DONE TO LEFT HEEL. WOUND 7.5X4.5X0.7CM. WOUND PICTURE TAKEN. WOUND ON RIGHT HEEL/ANKLE AREA WITH DRY GAUZE TO SITE, PT DID NOT WANT PICTURE TAKEN. TWO STAGE TWO AREAS TO COCCYX, CALAZIME APPLIED, PT DID NOT WANT PICTURES TAKEN OF COCCYX AREA. FAMILY AWARE TO CHANGE DRESSING ON LEFT HEEL WITH THERDAMIANONEY IN TWO DAYS. DR. STORY GAVE ORDERS TO CALL WOUND CLINIC ON THURSDAY AND TELL THEM HE WANTS TO SEE THE PATIENT ON THURSDAY OR THURSDAY FOR WOUND VAC PLACEMENT. PT WAS GIVEN IV DILAUDID PRIOR TO DRESSING CHANGE. BEFORE RN LEFT ROOM PT STATED DILAUDID WAS EFFECTIVE FOR THE 7/10 PAIN SHE HAD BEEN EXPERIENCING.
--- NOTE | 2017-09-25 17:12 | NUR ---
Discharge instructions reviewed with patient/family. Patient receptive and verbalizes understanding. Follow-up care arranged. Written instructions given to patient/family. LYN ROUSSEAU
== END 2017-09-25 17:10 | disposition home or self-care (01) | DRG 638 ==
LOC: ED 16:32 → EDHOLD 18:09 → 4E 18:09
PROVIDERS: Emergency Medicine; Internal Medicine; Internal Medicine Hematology & Oncology; Student in an Organized Health Care Education/Training Program; ADMIT Internal Medicine
PROC: 30233N1 Transfusion of Nonautologous Red Blood Cells into Peripheral Vein, Percutaneous Approach (ICD-10-PCS; 2017-09-22)
PROC: 0HDNXZZ Extraction of Left Foot Skin, External Approach (ICD-10-PCS; principal; 2017-09-23)
DX: E11.621 Type 2 diabetes mellitus with foot ulcer (principal); E44.0 Moderate protein-calorie malnutrition; M86.8X7 Other osteomyelitis, ankle and foot; N17.0 Acute kidney failure with tubular necrosis; J96.10 Chronic respiratory failure, unspecified whether with hypoxia or hypercapnia; D46.4 Refractory anemia, unspecified; L97.429 Non-pressure chronic ulcer of left heel and midfoot with unspecified severity; N30.01 Acute cystitis with hematuria; E87.2 Acidosis; I50.22 Chronic systolic (congestive) heart failure; I13.0 Hypertensive heart and chronic kidney disease with heart failure and stage 1 through stage 4 chronic kidney disease, or unspecified chronic kidney disease; E87.1 Hypo-osmolality and hyponatremia; L08.9 Local infection of the skin and subcutaneous tissue, unspecified; E11.40 Type 2 diabetes mellitus with diabetic neuropathy, unspecified; E11.22 Type 2 diabetes mellitus with diabetic chronic kidney disease; E11.51 Type 2 diabetes mellitus with diabetic peripheral angiopathy without gangrene; F03.90 Unspecified dementia, unspecified severity, without behavioral disturbance, psychotic disturbance, mood disturbance, and anxiety; N18.3 Chronic kidney disease, stage 3 (moderate); E11.65 Type 2 diabetes mellitus with hyperglycemia; J44.9 Chronic obstructive pulmonary disease, unspecified; L98.499 Non-pressure chronic ulcer of skin of other sites with unspecified severity; D50.8 Other iron deficiency anemias; R79.82 Elevated C-reactive protein (CRP); Z82.3 Family history of stroke; R70.0 Elevated erythrocyte sedimentation rate; I25.10 Atherosclerotic heart disease of native coronary artery without angina pectoris; E78.5 Hyperlipidemia, unspecified; Z79.4 Long term (current) use of insulin; E78.1 Pure hyperglyceridemia; E66.9 Obesity, unspecified; M54.5 Low back pain; E11.69 Type 2 diabetes mellitus with other specified complication; G89.29 Other chronic pain; E87.8 Other disorders of electrolyte and fluid balance, not elsewhere classified; E83.42 Hypomagnesemia; Z79.899 Other long term (current) drug therapy; Z79.82 Long term (current) use of aspirin; Z86.19 Personal history of other infectious and parasitic diseases; I25.2 Old myocardial infarction; Z90.710 Acquired absence of both cervix and uterus; Z95.810 Presence of automatic (implantable) cardiac defibrillator; Z95.1 Presence of aortocoronary bypass graft; Z98.51 Tubal ligation status; Z98.61 Coronary angioplasty status; Z87.891 Personal history of nicotine dependence; Z82.49 Family history of ischemic heart disease and other diseases of the circulatory system; Z84.1 Family history of disorders of kidney and ureter; Z80.1 Family history of malignant neoplasm of trachea, bronchus and lung; Z80.8 Family history of malignant neoplasm of other organs or systems; Z90.49 Acquired absence of other specified parts of digestive tract; Z68.32 Body mass index [BMI] 32.0-32.9, adult

== ENCOUNTER → 2017-09-28 | Outpatient (CLI) | payer OTHER ==
[~2017-09-28] MED LIST changes: +DOXYCYCLINE100 M3 PO; +LIPITOR40 MG PO
== END | disposition home or self-care (01) ==
LOC: WOUNDCARE 09:41
DX: E11.621 Type 2 diabetes mellitus with foot ulcer (principal); L89.629 Pressure ulcer of left heel, unspecified stage; L89.619 Pressure ulcer of right heel, unspecified stage; L97.411 Non-pressure chronic ulcer of right heel and midfoot limited to breakdown of skin; L97.421 Non-pressure chronic ulcer of left heel and midfoot limited to breakdown of skin; E11.51 Type 2 diabetes mellitus with diabetic peripheral angiopathy without gangrene; J44.9 Chronic obstructive pulmonary disease, unspecified; E78.5 Hyperlipidemia, unspecified; I25.10 Atherosclerotic heart disease of native coronary artery without angina pectoris; I11.0 Hypertensive heart disease with heart failure; I50.20 Unspecified systolic (congestive) heart failure; Z87.891 Personal history of nicotine dependence

== ENCOUNTER → 2017-10-06 | Outpatient (CLI) | payer OTHER | LOC: WOUNDCARE 04:02 | DX: E11.621 Type 2 diabetes mellitus with foot ulcer (principal); L97.521 Non-pressure chronic ulcer of other part of left foot limited to breakdown of skin; L89.620 Pressure ulcer of left heel, unstageable; L89.619 Pressure ulcer of right heel, unspecified stage; L97.421 Non-pressure chronic ulcer of left heel and midfoot limited to breakdown of skin; L97.411 Non-pressure chronic ulcer of right heel and midfoot limited to breakdown of skin; E11.51 Type 2 diabetes mellitus with diabetic peripheral angiopathy without gangrene; J44.9 Chronic obstructive pulmonary disease, unspecified; E78.5 Hyperlipidemia, unspecified; I25.10 Atherosclerotic heart disease of native coronary artery without angina pectoris; I11.0 Hypertensive heart disease with heart failure; I50.20 Unspecified systolic (congestive) heart failure; Z87.891 Personal history of nicotine dependence ==

== ENCOUNTER → 2017-10-07 | Outpatient (CLI) | payer OTHER ==
--- NOTE | 2017-10-07 11:15 | NUR ---
PORT SITE PREPPED X 2 AND ACCESSED USING ASEPTIC TECHNIQUE. PORT FLUSHES EASILY BUT NO BLOOD RETURN WAS NOTED.
--- NOTE | 2017-10-07 13:02 | NUR ---
CLIENT TO TREATMENT AREA FOR CATH-SP TREATMENT AREA AND BLOOD DRAW AND FLUSH VIA PORT. PORT WAS PREPPED AND ACCESSED USING ASEPTIC TECHNIQUE. NO BLOOD DRAW WAS NOTED. PORT WAS INJECTED WITH CATH-SP, TIME PER EMAR. BLOOD DRAW WAS ATTEMPTED AFTER ABOUT 1/2 HOUR WITH NO BLOOD RETURN NOTED. ASPIRATION WAS ATTEMPTED A SECOND TIME WITH BRISK BLOOD RETURN NOTED. APPROPRIATE AMOUNT OF BLOOD WAS WASTED THEN SPECIMEN OBTAINED AND SENT TO LAB. PORT WAS FLUSHED WITH SALINE FOLLOWED BY HEPARIN. NEEDLE WAS WITHDRAWN AND BANDAID APPLIED DTO SITE. NO BLEEDING SEEN. CLIENT THEN LEFT TREATMENT AREA VIA WHEELCHAIR IN STABLE CONDITION WITH ASSISTANCE FROM HER
[2017-10-07 13:13] LABS: HEMATOCRIT 25.6 % (37.0-47.0); HEMOGLOBIN 7.9 g/dl (12.0-16.0); MEAN CELL VOLUME 68.6 fl (81.0-99.0); MEAN CORPUSCULAR HGB 21.2 pg (27.0-31.0); MEAN CORPUSCULAR HGB CONC 30.9 g/dl (33.0-37.0); PLATELET COUNT AUTOMATED 206 10*3/uL (130-400); RED BLOOD COUNT 3.73 10*6/uL (4.10-5.10); RED CELL DISTRI WIDTH 22.1 % (0-14.5); WHITE BLOOD COUNT 8.9 10*3/uL (4.8-10.8)
[2017-10-07 13:38] LABS: MICROCYTOSIS SLIGHT; OVALOCYTES MODERATE; PLATELET SUFFICIENCY NORMAL (NORMAL); POLYCHROMASIA SLIGHT; SCHISTOCYTES FEW; SPHEROCYTES RARE; TOTAL CELLS COUNTED 100 #CELLS
== END | disposition home or self-care (01) ==
LOC: MEDIPORT 10:00 → LAB 10:29
PROVIDERS: Internal Medicine Hematology & Oncology
DX: D50.9 Iron deficiency anemia, unspecified (principal)

== ENCOUNTER → 2017-10-13 | Outpatient (CLI) | payer OTHER | END | disposition home or self-care (01) | LOC: WOUNDCARE 00:56 | DX: E11.621 Type 2 diabetes mellitus with foot ulcer (principal); L97.411 Non-pressure chronic ulcer of right heel and midfoot limited to breakdown of skin; L97.421 Non-pressure chronic ulcer of left heel and midfoot limited to breakdown of skin; E11.51 Type 2 diabetes mellitus with diabetic peripheral angiopathy without gangrene; J44.9 Chronic obstructive pulmonary disease, unspecified; E78.5 Hyperlipidemia, unspecified; I25.10 Atherosclerotic heart disease of native coronary artery without angina pectoris; I11.0 Hypertensive heart disease with heart failure; I50.20 Unspecified systolic (congestive) heart failure; Z87.891 Personal history of nicotine dependence ==

== ENCOUNTER → 2017-10-20 | Outpatient (CLI) | payer OTHER | END | disposition home or self-care (01) | LOC: WOUNDCARE 02:14 | DX: E11.621 Type 2 diabetes mellitus with foot ulcer (principal); L97.411 Non-pressure chronic ulcer of right heel and midfoot limited to breakdown of skin; L97.421 Non-pressure chronic ulcer of left heel and midfoot limited to breakdown of skin; L89.620 Pressure ulcer of left heel, unstageable; L89.619 Pressure ulcer of right heel, unspecified stage; J44.9 Chronic obstructive pulmonary disease, unspecified; E11.51 Type 2 diabetes mellitus with diabetic peripheral angiopathy without gangrene; E78.5 Hyperlipidemia, unspecified; I25.10 Atherosclerotic heart disease of native coronary artery without angina pectoris; I11.0 Hypertensive heart disease with heart failure; I50.20 Unspecified systolic (congestive) heart failure; Z87.891 Personal history of nicotine dependence ==

== ENCOUNTER → 2017-10-27 | Outpatient (CLI) | payer OTHER | END | disposition home or self-care (01) | LOC: WOUNDCARE 02:15 | DX: E11.621 Type 2 diabetes mellitus with foot ulcer (principal); L97.411 Non-pressure chronic ulcer of right heel and midfoot limited to breakdown of skin; L97.421 Non-pressure chronic ulcer of left heel and midfoot limited to breakdown of skin; L89.619 Pressure ulcer of right heel, unspecified stage; L89.620 Pressure ulcer of left heel, unstageable; E11.51 Type 2 diabetes mellitus with diabetic peripheral angiopathy without gangrene; J44.9 Chronic obstructive pulmonary disease, unspecified; E78.5 Hyperlipidemia, unspecified; I25.10 Atherosclerotic heart disease of native coronary artery without angina pectoris; I11.0 Hypertensive heart disease with heart failure; I50.20 Unspecified systolic (congestive) heart failure; Z87.891 Personal history of nicotine dependence ==

== ENCOUNTER → 2017-11-04 | Outpatient (CLI) | payer OTHER | END | disposition home or self-care (01) | LOC: WOUNDCARE 01:06 | DX: E11.621 Type 2 diabetes mellitus with foot ulcer (principal); L97.411 Non-pressure chronic ulcer of right heel and midfoot limited to breakdown of skin; L97.421 Non-pressure chronic ulcer of left heel and midfoot limited to breakdown of skin; L89.619 Pressure ulcer of right heel, unspecified stage; L89.620 Pressure ulcer of left heel, unstageable; E11.51 Type 2 diabetes mellitus with diabetic peripheral angiopathy without gangrene; J44.9 Chronic obstructive pulmonary disease, unspecified; E78.5 Hyperlipidemia, unspecified; I25.10 Atherosclerotic heart disease of native coronary artery without angina pectoris; I11.0 Hypertensive heart disease with heart failure; I50.20 Unspecified systolic (congestive) heart failure; Z87.891 Personal history of nicotine dependence ==

== ENCOUNTER → 2017-11-10 | Outpatient (CLI) | payer OTHER | END | disposition home or self-care (01) | LOC: WOUNDCARE 09:47 | DX: E11.621 Type 2 diabetes mellitus with foot ulcer (principal); L97.411 Non-pressure chronic ulcer of right heel and midfoot limited to breakdown of skin; L97.421 Non-pressure chronic ulcer of left heel and midfoot limited to breakdown of skin; L89.620 Pressure ulcer of left heel, unstageable; L89.619 Pressure ulcer of right heel, unspecified stage; E11.51 Type 2 diabetes mellitus with diabetic peripheral angiopathy without gangrene; J44.9 Chronic obstructive pulmonary disease, unspecified; E78.5 Hyperlipidemia, unspecified; I25.10 Atherosclerotic heart disease of native coronary artery without angina pectoris; I11.0 Hypertensive heart disease with heart failure; I50.20 Unspecified systolic (congestive) heart failure; Z95.0 Presence of cardiac pacemaker; Z87.891 Personal history of nicotine dependence ==

== ENCOUNTER → 2017-11-11 | Outpatient (CLI) | payer OTHER ==
[2017-11-11 18:17] LABS: BASO % 0.3 % (0.0-1.0); EOS # 0.2 10*3/uL (0.0-0.4); EOS % 3.4 % (1.0-4.0); HEMATOCRIT 27.9 % (37.0-47.0); HEMOGLOBIN 8.5 g/dl (12.0-16.0); LYMPH # 1.8 10*3/uL (1.3-4.4); LYMPH % 25.1 % (27.0-41.0); MEAN CELL VOLUME 70.6 fl (81.0-99.0); MEAN CORPUSCULAR HGB 21.5 pg (27.0-31.0); MEAN CORPUSCULAR HGB CONC 30.5 g/dl (33.0-37.0); MEAN PLATELET VOLUME 9.3 fl (9.6-12.3); MONO # 0.6 10*3/uL (0.1-1.0); MONO % 8.6 % (3.0-9.0); NEUT # 4.3 10*3/uL (2.3-7.9); PLATELET COUNT AUTOMATED 207 10*3/uL (130-400); RED BLOOD COUNT 3.95 10*6/uL (4.10-5.10); RED CELL DISTRI WIDTH 23.4 % (0-14.5)
== END ==
LOC: LAB 17:53
PROVIDERS: Internal Medicine Hematology & Oncology
DX: D50.9 Iron deficiency anemia, unspecified (principal)

== ENCOUNTER → 2017-11-19 | Outpatient (CLI) | payer OTHER ==
[2017-11-19] VITALS (9 sets, daily range): BP systolic 103–153; BP diastolic 40–68
== END | disposition home or self-care (01) ==
LOC: TRNFUSION 11-18 13:59
DX: D46.1 Refractory anemia with ring sideroblasts (principal)

== ENCOUNTER → 2017-11-24 | Outpatient (CLI) | payer OTHER | END | disposition home or self-care (01) | LOC: WOUNDCARE 03:59 | DX: E11.621 Type 2 diabetes mellitus with foot ulcer (principal); L89.620 Pressure ulcer of left heel, unstageable; L89.619 Pressure ulcer of right heel, unspecified stage; E11.51 Type 2 diabetes mellitus with diabetic peripheral angiopathy without gangrene; S91.105D Unspecified open wound of left lesser toe(s) without damage to nail, subsequent encounter; J44.9 Chronic obstructive pulmonary disease, unspecified; E78.5 Hyperlipidemia, unspecified; I25.10 Atherosclerotic heart disease of native coronary artery without angina pectoris; I11.0 Hypertensive heart disease with heart failure; I50.20 Unspecified systolic (congestive) heart failure; Z95.810 Presence of automatic (implantable) cardiac defibrillator; Z87.891 Personal history of nicotine dependence; X58.XXXD Exposure to other specified factors, subsequent encounter ==

== ENCOUNTER → 2017-12-01 | Outpatient (CLI) | payer OTHER ==
[~2017-12-01] MED LIST changes: +SINEMET 25-1001 EACH PO
[2017-12-01 14:34] LABS: BASO % 0.3 % (0.0-1.0); EOS # 0.2 10*3/uL (0.0-0.4); EOS % 2.2 % (1.0-4.0); HEMATOCRIT 32.7 % (37.0-47.0); LYMPH # 1.9 10*3/uL (1.3-4.4); LYMPH % 18.6 % (27.0-41.0); MEAN CELL VOLUME 71.4 fl (81.0-99.0); MEAN CORPUSCULAR HGB 21.8 pg (27.0-31.0); MEAN CORPUSCULAR HGB CONC 30.6 g/dl (33.0-37.0); MEAN PLATELET VOLUME 9.1 fl (9.6-12.3); NEUT % 68.5 % (47.0-73.0); PLATELET COUNT AUTOMATED 246 10*3/uL (130-400); RED BLOOD COUNT 4.58 10*6/uL (4.10-5.10); RED CELL DISTRI WIDTH 25.7 % (0-14.5); WHITE BLOOD COUNT 10.2 10*3/uL (4.8-10.8)
== END | disposition home or self-care (01) ==
LOC: LAB 12:53
PROVIDERS: Internal Medicine Hematology & Oncology
DX: D50.9 Iron deficiency anemia, unspecified (principal); L97.411 Non-pressure chronic ulcer of right heel and midfoot limited to breakdown of skin; L97.421 Non-pressure chronic ulcer of left heel and midfoot limited to breakdown of skin; I73.9 Peripheral vascular disease, unspecified; L97.412 Non-pressure chronic ulcer of right heel and midfoot with fat layer exposed; E10.621 Type 1 diabetes mellitus with foot ulcer; L97.413 Non-pressure chronic ulcer of right heel and midfoot with necrosis of muscle

== ENCOUNTER → 2017-12-08 | Outpatient (CLI) | payer OTHER | END | disposition home or self-care (01) | LOC: WOUNDCARE 00:42 | DX: E11.621 Type 2 diabetes mellitus with foot ulcer (principal); L89.620 Pressure ulcer of left heel, unstageable; L89.619 Pressure ulcer of right heel, unspecified stage; L97.413 Non-pressure chronic ulcer of right heel and midfoot with necrosis of muscle; L97.421 Non-pressure chronic ulcer of left heel and midfoot limited to breakdown of skin; E11.51 Type 2 diabetes mellitus with diabetic peripheral angiopathy without gangrene; J44.9 Chronic obstructive pulmonary disease, unspecified; I11.0 Hypertensive heart disease with heart failure; I50.20 Unspecified systolic (congestive) heart failure; I25.10 Atherosclerotic heart disease of native coronary artery without angina pectoris; E78.5 Hyperlipidemia, unspecified; Z95.0 Presence of cardiac pacemaker; Z87.891 Personal history of nicotine dependence ==

== ENCOUNTER → 2017-12-10 | Outpatient (CLI) | payer OTHER ==
[2017-12-10 11:34] LABS: BASO % 0.3 % (0.0-1.0); EOS # 0.2 10*3/uL (0.0-0.4); EOS % 2.4 % (1.0-4.0); HEMATOCRIT 25.4 % (37.0-47.0); HEMOGLOBIN 7.8 g/dl (12.0-16.0); LYMPH # 1.9 10*3/uL (1.3-4.4); LYMPH % 20.4 % (27.0-41.0); MEAN CELL VOLUME 69.8 fl (81.0-99.0); MEAN CORPUSCULAR HGB 21.4 pg (27.0-31.0); MEAN CORPUSCULAR HGB CONC 30.7 g/dl (33.0-37.0); MEAN PLATELET VOLUME 9.2 fl (9.6-12.3); MONO # 0.9 10*3/uL (0.1-1.0); MONO % 9.4 % (3.0-9.0); NEUT # 6.1 10*3/uL (2.3-7.9); NEUT % 66.7 % (47.0-73.0); PLATELET COUNT AUTOMATED 222 10*3/uL (130-400); RED BLOOD COUNT 3.64 10*6/uL (4.10-5.10); RED CELL DISTRI WIDTH 26.4 % (0-14.5); WHITE BLOOD COUNT 9.1 10*3/uL (4.8-10.8)
== END | disposition home or self-care (01) ==
LOC: LAB 10:49
PROVIDERS: Internal Medicine Hematology & Oncology
DX: D50.9 Iron deficiency anemia, unspecified (principal)

== ENCOUNTER → 2017-12-11 | Outpatient (CLI) | payer OTHER ==
[2017-12-11] VITALS (9 sets, daily range): BP systolic 131–144; BP diastolic 35–68
[2017-12-11 17:38] LABS: BASO % 0.2 % (0.0-1.0); EOS # 0.1 10*3/uL (0.0-0.4); HEMATOCRIT 29.4 % (37.0-47.0); HEMOGLOBIN 9.4 g/dl (12.0-16.0); LYMPH # 1.5 10*3/uL (1.3-4.4); LYMPH % 16.5 % (27.0-41.0); MEAN CELL VOLUME 71.4 fl (81.0-99.0); MEAN CORPUSCULAR HGB 22.8 pg (27.0-31.0); MEAN PLATELET VOLUME 9.5 fl (9.6-12.3); MONO # 0.7 10*3/uL (0.1-1.0); NEUT # 6.9 10*3/uL (2.3-7.9); NEUT % 74.5 % (47.0-73.0); PLATELET COUNT AUTOMATED 203 10*3/uL (130-400); RED BLOOD COUNT 4.12 10*6/uL (4.10-5.10); RED CELL DISTRI WIDTH 25.2 % (0-14.5); WHITE BLOOD COUNT 9.3 10*3/uL (4.8-10.8)
== END | disposition home or self-care (01) ==
LOC: TRNFUSION 02:23
PROVIDERS: Internal Medicine Hematology & Oncology
DX: D64.9 Anemia, unspecified (principal)

== ENCOUNTER → 2017-12-15 | Outpatient (CLI) | payer OTHER | END | disposition home or self-care (01) | LOC: WOUNDCARE 03:27 | DX: E11.621 Type 2 diabetes mellitus with foot ulcer (principal); L89.620 Pressure ulcer of left heel, unstageable; L89.619 Pressure ulcer of right heel, unspecified stage; L97.421 Non-pressure chronic ulcer of left heel and midfoot limited to breakdown of skin; L97.413 Non-pressure chronic ulcer of right heel and midfoot with necrosis of muscle; E11.51 Type 2 diabetes mellitus with diabetic peripheral angiopathy without gangrene; J44.9 Chronic obstructive pulmonary disease, unspecified; I11.0 Hypertensive heart disease with heart failure; I50.20 Unspecified systolic (congestive) heart failure; I25.10 Atherosclerotic heart disease of native coronary artery without angina pectoris; E78.5 Hyperlipidemia, unspecified; E55.9 Vitamin D deficiency, unspecified; Z95.0 Presence of cardiac pacemaker; Z87.891 Personal history of nicotine dependence ==

== ENCOUNTER → 2017-12-22 | Outpatient (CLI) | payer OTHER | END | disposition home or self-care (01) | LOC: WOUNDCARE 03:58 | DX: E11.621 Type 2 diabetes mellitus with foot ulcer (principal); L89.620 Pressure ulcer of left heel, unstageable; L89.619 Pressure ulcer of right heel, unspecified stage; L97.421 Non-pressure chronic ulcer of left heel and midfoot limited to breakdown of skin; L97.413 Non-pressure chronic ulcer of right heel and midfoot with necrosis of muscle; S91.105D Unspecified open wound of left lesser toe(s) without damage to nail, subsequent encounter; E11.51 Type 2 diabetes mellitus with diabetic peripheral angiopathy without gangrene; J44.9 Chronic obstructive pulmonary disease, unspecified; E78.5 Hyperlipidemia, unspecified; E55.9 Vitamin D deficiency, unspecified; I25.10 Atherosclerotic heart disease of native coronary artery without angina pectoris; I11.0 Hypertensive heart disease with heart failure; I50.20 Unspecified systolic (congestive) heart failure; Z95.0 Presence of cardiac pacemaker; Z87.891 Personal history of nicotine dependence; X58.XXXD Exposure to other specified factors, subsequent encounter ==

== ENCOUNTER → 2017-12-23 | Outpatient (CLI) | payer OTHER ==
[2017-12-23] VITALS (7 sets, daily range): BP systolic 124–142; BP diastolic 35–52
== END | disposition home or self-care (01) ==
LOC: TRNFUSION 01:35
DX: D46.1 Refractory anemia with ring sideroblasts (principal)

== ENCOUNTER 2018-01-06 14:31 | Inpatient (IN) | payer OTHER ==
[~2018-01-06] VITALS: Ht 154.9 cm; Wt 75.4 kg
--- NOTE | ~2018-01-06 | PR ---
[place], [place] PROGRESS NOTE NAME: [id number] UNIT #: [id number] ROOM: 531 DOCTOR: YAMINI RODRIGEZ,JANUARY BIRTHDATE: [birth year] DOS: SUBJECTIVE: The patient is a 62-year-old female who is being followed for a heel osteomyelitis. Path showed chronic and acute osteomyelitis. She had a bone biopsy on 01/12/2018. Unfortunately, no culture was sent. The patient is alert and oriented, currently on vancomycin. Denies fever, chills, nausea, vomiting or diarrhea. No rash or itch. No cough or shortness of breath. No fevers or shaking chills. No headache or dizziness. No chest pain or palpitation. She has been afebrile. VITAL SIGNS: Temp 98.7, pulse 89, respirations 18 and BP 160/61. Vancomycin trough 22.4 that is being adjusted per pharmacy. LABORATORY DATA: Blood cultures are negative. CURRENT MEDICATIONS: Include vancomycin, Cymbalta, Calazime, Roxicodone, Abilify, Lopid, Neurontin, Pepcid, Lovenox, Plavix, Coreg, Bumex, Lipitor, aspirin, insulin, Sinemet, Atrovent, Parafon Forte, milk of mag, Dulcolax and Tylenol. PHYSICAL EXAMINATION: GENERAL: Alert and oriented 62-year-old female in no acute distress. HEAD, EYES, EARS, NOSE AND THROAT: Normocephalic, no thrush. LUNGS: Clear to auscultation bilaterally. Respirations even and unlabored. HEART: Regular rhythm. No murmur appreciated. ABDOMEN: Soft, nontender. Left chest MediPort is accessed. EXTREMITIES: No edema. Bilateral feet dressed and has bilateral foot drops. SKIN: Warm, dry and free of rashes. ASSESSMENT: Chronic osteomyelitis of the right foot based on bone biopsy; however, we do not have cultures. PLAN: She is currently on IV vancomycin. The patient has had a prolonged course, she started out at [facility]. We do not have the cultures from near if anywhere obtained. She went to [facility]. I contacted [facility] tonight. They state they have no cultures from there in the last 60 days. She was discharged from [place] on doxycycline and then admitted here approximately 24 hours later. PLAN: At this point, we will continue the vancomycin. Check with Levi in a.m. for cultures I have requested for the ____ to do that. No one would be available at microbiology this week. Continue the IV vancomycin. Case discussed with Dr. Emi Rojo. JASWINDER KC CNP [place], [place] PROGRESS NOTE NAME: RAGINIABNERCHRISTIAN UNIT #: [id number] ROOM: 531 DOCTOR: YAMINI BIRTHDATE: [birth year] EMI ROJO MD CM:PNTRANS [id number] [phone] YAMINI RODRIGEZ 01/17/182048 interface
--- NOTE | ~2018-01-06 | CON ---
[place], [place] REPORT OF CONSULTATION NAME: CHRISTIAN HELLER UNIT #: [id number] ROOM: 531 DOCTOR: MERON DUNHAM MD BIRTHDATE: [birth year] DOS: 01/17/2018 CHIEF COMPLAINT: "Yeah, I am in a lot of pain. HISTORY OF PRESENT ILLNESS: This is a 62-year-old white female who was initially seen through the emergency room at [facility] for an open right calcaneal fracture as well as a diabetic right foot ulcer. The patient has expressed continued depression with significant pain. She is a poor historian and could not tell me exactly what medication she is on for the depression, but states that they are not working well. She notes fluctuations in sleep and appetite, crying spells, inability to cope, feeling hopeless and helpless. Additionally, she feels that the pain can be intense. After she receives a dose of pain medicine, it goes down to a 4 on a scale of 1-10 with 10 being the worst. Most other times without medication, her pain is an 8. PAST MEDICAL HISTORY: Significant from a plethora of medical issues including coronary artery disease, chronic kidney disease stage 3, COPD, diabetes, hepatitis C, history of [place], hyperlipidemia, hypertension, iron deficiency anemia, morbid obesity, peripheral neuropathy, peripheral vascular disease, anemia, restless leg syndrome and congestive heart failure. DIAGNOSIS: Major depression, recurrent, severe. PLAN: I will discontinue her Remeron and Prozac and start her on Cymbalta 30 mg twice daily. Her GFR is greater than 60, so despite the reported history of chronic kidney disease stage 3, her kidney seem to be functioning fairly normally, so I feel that it is safe to start her on the Cymbalta. This should impact positively on her mood as well as helping decrease pain and make her more comfortable. Should you require further intervention, feel free to consult me at any time. MERON DUNHAM MD CM:CONSTR:REPORT OF CONSULTATION [id number] 01/17/18 1342 interface
--- NOTE | ~2018-01-06 | PR ---
[place], [place] PROGRESS NOTE NAME: CHRISTIAN HELLER UNIT #: [id number] ROOM: 531 DOCTOR: DARREL RIVERA,EMI Ching BIRTHDATE: [birth year] DOS: 01/16/2018 ADDENDUM I agree with the above plans as described. We will follow the patient up clinically and adjust accordingly. EMI ROJO MD CM:PNTRANS [id number] EMI ROJO MD 01/18/18 0903 interface
--- NOTE | ~2018-01-06 | PR ---
[place], [place] PROGRESS NOTE NAME: CHRISTIAN HELLER [facility] #: [id number] UNIT #: [id number] ROOM: 531 DOCTOR: IBAN GUZMAN MD BIRTHDATE: [birth year] DOS: SUBJECTIVE: The patient has been admitted to the hospital with right infected heel, osteomyelitis, fracture of the heel and diabetic ulcer of her heel, diabetes mellitus, nonhealing ulcer, elevated erythrocyte rate, severe protein malnutrition, uncontrolled diabetes mellitus, peripheral vascular disease. She had recently procedure done in [facility] for opening her leg arteries. She has also morbid obesity, chronic kidney disease, hypertension, history of hepatitis C, hyperlipidemia, COPD, systolic congestive heart failure. The patient is gradually getting better and being treated with antibiotics. Her hemoglobin and hematocrit are 10.1 and 30.3. The patient received blood transfusion. Basic metabolic profile showed glucose 154, GFR 55, creatinine 1.02, fairly normal. OBJECTIVE: VITAL SIGNS: Her blood pressure is 141/50, pulse 60, respirations 16, temperature 97.5. CHEST: Clear. HEART: Regular. ABDOMEN: Soft. IBAN GUZMAN MD CM:PNTRANS [id number] IBAN GUZMAN MD 01/10/18 0433 interface
--- NOTE | ~2018-01-06 | CON ---
[place], [place] REPORT OF CONSULTATION [id number] UNIT #: [id number] ROOM: 531 DOCTOR: ALBA TRIMBLE DPM BIRTHDATE: [birth year] DOS: 01/07/2018 SUBJECTIVE: The patient presents as a 62-year-old female who was admitted for ulceration and right calcaneal fracture. The patient felt a pop sensation in her foot and her foot started to bleed. The patient has had long-term treatment of the ulceration by Dr. Villagomez. The patient has had numerous procedures to the ulceration. The patient has also had vascular surgery intervention at the [facility] and in [place]. The patient apparently took the wound VAC off 2 days ago. The patient stood up and felt a pop sensation with bleeding noting, the patient was subsequently admitted. We were consulted for the calcaneal fracture and Dr. Villagomez was consulted for the wound management. PAST MEDICAL HISTORY: Coronary artery disease, chronic kidney disease stage 3, COPD, dementia, diabetes, hepatitis C, genotype type 2, history of [place], hyperlipidemia, hypertension, iron deficiency anemia, morbid obesity, pacemaker, peripheral neuropathy, peripheral vascular obstructive disease, refractory anemia due to myelodysplastic syndrome, restless legs, systolic CHF. PAST SURGICAL HISTORY: Fem-pop bypass, bilateral; history of left-sided carotid endarterectomy, abscess of the breast with incision and drainage, history of CABG, hysterectomy, internal cardiac defibrillator and pacemaker, right heel ulceration. SOCIAL HISTORY: Denies alcohol or illicit drug use. Former smoker, 80+ pack year history, quit in 2006. FAMILY HISTORY: Father at age 60+ of hypertension complications. Mother at age 54 of [place]. ALLERGIES: No known allergies. LOWER EXTREMITY EXAMINATION: Decreased pedal pulses bilateral, decreased epicritic sensations. There is an ulceration to the lateral plantar right heel with maceration of the tissue. The ulceration is to and through subcutaneous tissue level, apparently to level of bone. The CT scan revealed large calcaneal ulceration with nondisplaced fracture through the posterior inferior aspect of the calcaneal body extending to the middle facet with associated fluid and soft tissue gas indicative of chronic osteomyelitis. I reviewed the radiographs myself. The patient has a nondisplaced calcaneal body fracture emanating from the ulceration site of the plantar calcaneus to the subtalar joint, Steven calcaneal fracture classification type 4. ASSESSMENT: Osteomyelitis, right calcaneus; diabetic ulceration; possible underlying abscess; fractured calcaneus; diabetes. PLAN: Evaluation and management. Discussed the case with Dr. Lindsay. Also discussed the case with the patient and her family member. The patient is to stay off the foot. Discussed that in my opinion the fracture is a pathological fracture from underlying osteomyelitis. There is no displacement. The patient [place], [place] REPORT OF CONSULTATION NAME: CHRISTIAN HELLER UNIT #: [id number] ROOM: 531 DOCTOR: ALBA TRIMBLE DPM BIRTHDATE: [birth year] needs treatment for the osteomyelitis at this time. Dr. Villagomez was consulted for wound management and will probably perform additional incision and drainage with bone biopsy. Discussed this recommendation with Dr. Lindsay that I recommend Dr. Villagomez proceed with further debridement with bone biopsy and consult infectious disease for long-term IV antibiotic treatment. Discussed with Dr. Lindsay and the patient and her family member, the patient is high risk for limb loss. Discussed the case also with Dr. Mendoza who will round on the patient tomorrow and hopefully Dr. Villagomez will see the patient today and schedule the surgical intervention since he has been following the patient surgically. We will defer debridement and surgical intervention to Dr. Villagomez. ALBA TRIMBLE DPM CM:CONSTR:REPORT OF CONSULTATION 1308 01/08/18 0352 interface
--- NOTE | ~2018-01-06 | PR ---
[place], [place] PROGRESS NOTE NAME: CHRISTIAN HELLER UNIT #: [id number] ROOM: 531 DOCTOR: DARREL RIVERA,EMI Ching BIRTHDATE: [birth year] DOS: 01/18/2018 ADDENDUM. After reviewing chart, labs and microbiology, I agree with the above plans as described. We will follow the patient up clinically and adjust accordingly. EMI ROJO MD CM:PNTRANS 0745 0836 EMI ROJO MD 01/19/18 1120 interface
--- NOTE | ~2018-01-06 | PR ---
[place], [place] PROGRESS NOTE NAME: CHRISTIAN HELLER UNIT #: [id number] ROOM: 531 DOCTOR: DARREL RIVERA,EMI Ching BIRTHDATE: [birth year] DOS: 01/17/2018 ADDENDUM After reviewing the chart, labs and radiographs, I agree with the above plans as described in the progress note on 01/17/2018 for Infectious Disease. We will follow the patient clinically and adjust accordingly. EMI ROJO MD CM:PNTRANS 18 56 EMI ROJO MD 01/17/182154 interface
--- NOTE | ~2018-01-06 | PR ---
[place], [place] PROGRESS NOTE [id number] UNIT #: [id number] ROOM: 531 DOCTOR: YAMINI RODRIGEZ,JANUARY BIRTHDATE: [birth year] DOS: 01/18/2018 SUBJECTIVE: The patient is a 62-year-old female being followed for right calcaneus osteomyelitis. She is status post pathologic fracture due to osteomyelitis. She had a bone pathology that showed acute and chronic osteomyelitis; however, there were no cultures done from it. I had staff contact [facility] today. They have no cultures since 2009 on this patient. I contacted my [facility] yesterday. They have no cultures on the patient. She is currently on IV vancomycin. She is alert and oriented, tolerating the antibiotics. Denies fevers, chills, nausea, vomiting or diarrhea. No rash or itch. No cough or shortness of breath. She has no pain. She has got peripheral neuropathy, bilateral ____. LABORATORY DATA: Show BUN 24, creatinine 1.12. Blood cultures are negative. A culture was obtained from her foot today. CURRENT MEDICATIONS: Include vancomycin, Lactinex, Cymbalta, Calazime, Roxicodone, Abilify, Lopid, Neurontin, Pepcid, Lovenox, Plavix, Coreg, Lipitor, Bumex, aspirin, Sinemet, Atrovent, Parafon Forte. PHYSICAL EXAMINATION: VITAL SIGNS: Temperature 98.1, pulse 77, respirations 20, BP 134/48. GENERAL: A 62-year-old female, in no acute distress. HEAD, EYES, EARS, NOSE AND THROAT: Normocephalic. No thrush. LUNGS: Clear to auscultation bilaterally. Respirations even and unlabored. HEART: Regular rhythm. No murmur appreciated. ABDOMEN: Soft, nontender. EXTREMITIES: No edema. She has bilateral footdrop. Right heel wound is fairly clean, deep. No odor or cellulitis. SKIN: Warm, dry, free of rashes. Left chest MediPort is accessed. ASSESSMENT: Right calcaneus osteomyelitis with pathology positive for osteomyelitis. No cultures obtained. She is currently on IV vancomycin. Again, no cultures were obtained at [facility] or [facility] according to both hospitals. Case discussed with Dr. Emi Rojo. JASWINDER KC CNP [place], [place] PROGRESS NOTE NAME: CHRISTIAN HELLER UNIT #: [id number] ROOM: 53 DOCTOR: YAMINI RODRIGEZ BIRTHDATE: [birth year] EMI ROJO MD CM:PNTRANS 01 [id number] JANUARY YAMINI RODRIGEZ 01/19/18 0758 interface
--- NOTE | ~2018-01-06 | PR ---
[place], [place] PROGRESS NOTE NAME: CHRISTIAN HELLER [facility] #: [id number] UNIT #: [id number] ROOM: 531 DOCTOR: JORGE LAUGHLIN DPM BIRTHDATE: [birth year] DOS: 01/11/2018 SUBJECTIVE: This patient is seen for followup of right calcaneal fracture and ulceration of right heel. The patient is going to surgery today for debridement and bone biopsy by Dr. Villagomez. OBJECTIVE: Neurovascular status is unchanged. Wound is still present. The right heel wound is essentially unchanged at this time. DIAGNOSTIC STUDIES: Again, CT scan showed a calcaneal fracture. ASSESSMENT: Osteomyelitis, fracture of right calcaneus, diabetic ulcer. PLAN: Evaluation and management. The patient goes to surgery today with Dr. Villagomez for debridement and bone biopsy. He will continue to follow up for wound care. He is managing the wound at this time. Infectious Disease is managing antibiotics. We will follow up at a later date if needed, but right now conservative management for the calcaneal fracture. JORGE LAUGHLIN DPM CM:PNTRANS 1158 1238 JORGE LAUGHLIN DPM 01/11/18 1236 interface
--- NOTE | ~2018-01-06 | PR ---
[place], [place] PROGRESS NOTE [id number] UNIT #: [id number] ROOM: 531 DOCTOR: YAMINI RODRIGEZ,JANUARY BIRTHDATE: [birth year] DOS: 01/16/2018 SUBJECTIVE: A 62-year-old female who is being followed for a heel chronic osteomyelitis, now status post pathologic fracture due to her osteo. She had a biopsy done. Pathology was sent on the , which demonstrated acute and chronic osteomyelitis; however, no culture was done. She has had no wound cultures from it. She was originally [place] and went to the [facility] for vascular procedures and then was discharged on doxycycline and 24 hours later ended up here with pathologic fracture. History is obtained, prolonged discussion with the patient as well as review of the [facility] chart that is available, several 100 pages worth. Blood cultures are negative here. LABORATORY DATA: Show WBC 6.1, platelets 179. VITAL SIGNS: Temperature 98.9, pulse 69, respirations 16, BP 136/43. CURRENT MEDICATIONS: Calazime, Prozac, Roxicodone, vancomycin, Remeron, Abilify, Lopid, Neurontin, Pepcid, Lovenox, Plavix, Coreg, Bumex, Lipitor, aspirin, Sinemet, Atrovent, Parafon forte. REVIEW OF SYSTEMS: Alert and oriented. Denies nausea, vomiting or diarrhea. No rash or itch. No cough or shortness of breath, no pain in her feet. She has neuropathy. No fevers or shaking chills. PHYSICAL EXAMINATION: VITAL SIGNS: Temperature 98.9, pulse 69, respirations 16, BP 136/43. GENERAL: A 62-year-old female in no acute distress. HEAD, EYES, EARS, NOSE AND THROAT: Normocephalic, no thrush. LUNGS: Clear to auscultation bilaterally. Respirations even and unlabored. HEART: Regular rhythm. No murmur appreciated. ABDOMEN: Soft, nondistended. EXTREMITIES: No edema bilaterally, appears to have foot drop, both feet are dressed. SKIN: Warm, dry, free of rashes. Has PICC in place. Dressing dry and intact. She has a MediPort in place, left chest, which is accessed. No surrounding erythema. ASSESSMENT: Right foot osteomyelitis, chronic based on the biopsy. Unfortunately, no cultures were done. PLAN: She is currently on IV vancomycin; however, we have no actual cultures to work from. She was discharged from [facility] on doxycycline. We need to obtain cultures from [facility]. I do not find any extensive chart that is available as well as possibly from [place] if there were no cultures done at [facility] in order to guide adequate weeks of affective antibiotics considering no cultures were done here. Case discussed with Dr. Emi Rojo. [place], [place] PROGRESS NOTE NAME: CHRISTIAN HELLER [facility] UNIT #: [id number] ROOM: 531 DOCTOR: YAMINI RODRIGEZJANUARY BIRTHDATE: [birth year] JASWINDER KC CNP EMI ROJO MD CM:PNTRANS 41 [id number] JANUARY YAMINI RODRIGEZ 01/17/18 1616 interface
--- NOTE | ~2018-01-06 | PR ---
[place], [place] PROGRESS NOTE NAME: CHRITSIAN HELLER [facility] #: [id number] UNIT #: [id number] ROOM: 531 DOCTOR: JORGE LAUGHLIN DPM BIRTHDATE: [birth year] DOS: 01/08/2018 SUBJECTIVE: This patient is seen for followup of a chronic ulcer of the right plantar lateral heel as well as recent calcaneal fracture. The patient has been followed by Dr. Villagomez in the wound care center. She states she was just in [place] for vascular intervention and she did get out until few days ago. She had CT scan which showed a fracture of her right calcaneus. OBJECTIVE: EXTREMITIES: Pedal pulses are decreased. Decreased sensation is seen. Ulceration, plantar lateral right heel has minimal maceration, but really no purulent drainage or malodor, no signs of infection. No signs of abscess. Chronic wound is present with some necrotic tissue and the ulceration appears very close to bone. Periosteum can be palpated. Her CT scan showed minimally displaced fracture through the posterior and inferior aspect of the calcaneal body. Clinically, it does not appear grossly infected or abscess. There was gas seen on the CT scan, but clinically it does not appear to be that grossly infected. ASSESSMENT: Osteomyelitis fracture of right calcaneus, diabetic ulcer. PLAN: Evaluation and management. I did discuss with Dr. Villagomez. I discussed the case with Dr. Villagomez today. His plan is to take the patient to surgery for debridement and bone biopsy. As far as the calcaneal fracture, I think conservative management is warranted at this time. We would not recommend any surgery. I discussed with the patient my recommendation for treatment plan will be debridement of the wound with bone biopsy, course of IV antibiotics per Infectious Disease and Wound Care per Dr. Villagomez. Obvious nonweightbearing on the right foot secondary to the fracture. We will continue to follow while in the hospital. Dr. Villagomez will take her to surgery for debridement of bone biopsy and this was all discussed with the patient. JORGE LAUGHLIN DPM CM:PNTRANS 14 31 JORGE LAUGHLIN DPM 01/08/18 2030 interface
--- NOTE | ~2018-01-06 | CON ---
[place], [place] REPORT OF CONSULTATION NAME: CHRISTIAN HELLER UNIT #: [id number] ROOM: 531 DOCTOR: KATE DEAN ED.D (AGUILAR) BIRTHDATE: [birth year] DOS: 01/18/2018 HISTORY OF PRESENT ILLNESS: The patient is a 62-year-old female referred by Dr. Myers for depression. At the present time, she is on the 5th floor at [facility]. She is and has 3 children. She does not work outside the home. Her family physician is Dr. Myers and her medical history is pertinent for chronic kidney failure, osteomyelitis and major depressive disorder. Her medications include Calazime, Prozac, Roxicodone, vancomycin, Abilify, Cymbalta, Lipitor, aspirin, Sinemet, Atrovent, Neurontin, Pepcid, Lovenox, Plavix, Coreg and Bumex. She does not smoke or drink any alcoholic beverages. The patient was awake, alert and oriented in all 3 spheres, but was quite depressed. She states she does follow at the counseling center and will follow up there once she is discharged. She apparently is going to [facility] for rehabilitation and from there will continue to follow up outpatient with the counseling center. Dr. Llanos did change her medications and put her on Cymbalta, which will possibly help somewhat more than her past medications. She is not suicidal, although she has felt suicidal in the past and did make one attempt many years ago. DIAGNOSIS: Major depressive disorder, recurrent, severe. RECOMMENDATIONS: 1. The patient should continue antidepressant medications. 2. The patient should follow up at the counseling center where she is already a patient. Thank you very much for this consult. KATE DEAN ED.D CM:CONSTR:REPORT OF CONSULTATION 1247 01/18/18 1319 interface LAURA MYERS MD
--- NOTE | ~2018-01-06 | PR ---
[place], [place] PROGRESS NOTE [id number] UNIT #: [id number] ROOM: 531 DOCTOR: IBAN GUZMAN MD BIRTHDATE: [birth year] DOS: SUBJECTIVE: The patient has been admitted to hospital with osteomyelitis and infected right heel with fracture of the right heel. She is having diabetic ulcer on her feet with diabetes mellitus and nonhealing ulcer, elevated erythrocyte sedimentation rate, severe protein malnutrition, uncontrolled diabetes mellitus, peripheral vascular disease. The patient is progressively getting better. She denies having any chest pain. No difficulty with breathing. No nausea. No vomiting. No diarrhea and feeling fairly comfortable and is feeling improvement in pain in her right heel. OBJECTIVE: VITAL SIGNS: Her blood pressure today is 136/44, pulse 58, respirations 18, temperature 97.6. LABORATORY DATA: Her vancomycin level is 18.2, which is normal. Her CBC showed hemoglobin 10.2, hematocrit 30.8. IBAN GUZMAN MD CM:PNTRANS 1344 1354 IBAN GUZMAN MD 01/10/18 1352 interface
[2018-01-06 14:33] VITALS: BP 118/43
[2018-01-06 16:14] VITALS: BP 120/50
[2018-01-06 17:25] VITALS: BP 128/62; BP 128/72
[2018-01-06 17:53] LABS: HEMATOCRIT 22.1 % (37.0-47.0); HEMOGLOBIN 7.2 g/dl (12.0-16.0); MEAN CELL VOLUME 69.5 fl (81.0-99.0); MEAN CORPUSCULAR HGB 22.6 pg (27.0-31.0); MEAN CORPUSCULAR HGB CONC 32.6 g/dl (33.0-37.0); NUCLEATED RED BLOOD CELL 0.4 % (0.0-0.0); PLATELET COUNT AUTOMATED 228 10*3/uL (130-400); RED BLOOD COUNT 3.18 10*6/uL (4.10-5.10); RED CELL DISTRI WIDTH 27.4 % (0-14.5)
[2018-01-06 18:04] LABS: ALBUMIN 2.2 gm/dl (3.1-4.5); CREATININE 1.19 mg/dL (0.55-1.02); TOTAL PROTEIN 6.9 gm/dL (6.4-8.2)
[2018-01-06] MEDS ORDERED: PLAVIX75 M1 PO (18:10)
[2018-01-06] MEDS ORDERED: DOXYCYCLINE100 M3 PO (18:10)
[2018-01-06 18:12] LABS: BURR CELLS FEW; PLATELET SUFFICIENCY NORMAL (NORMAL); TOTAL CELLS COUNTED 100 #CELLS
[2018-01-06 18:13] LABS: MICROCYTOSIS MODERATE; OVALOCYTES FEW; POLYCHROMASIA SLIGHT
[2018-01-06] MEDS ORDERED: HUMALOG 751 UNIT/0.0 SC (18:17)
[2018-01-06] MEDS ORDERED: ROXICODONE5 MG PO (18:23)
[2018-01-06] MEDS ORDERED: ABILIFY15 MG PO (18:25)
[2018-01-06] MEDS ORDERED: ASPIRIN81 MG PO (18:26)
[2018-01-06] MEDS ORDERED: BUMETANIDE2 MG PO (18:26)
[2018-01-06] MEDS ORDERED: LIPITOR40 MG PO (18:26)
[2018-01-06] MEDS ORDERED: CARVEDILOL25 MG PO (18:28)
[2018-01-06] MEDS ORDERED: SINEMET 25-1001 EACH PO (18:28)
[2018-01-06] MEDS ORDERED: LOPID600 M1 PO (18:29)
[2018-01-06] MEDS ORDERED: GABAPENTIN800 MG PO (18:29)
[2018-01-06] MEDS ORDERED: PROTONIX40 M1 IV (18:30)
[2018-01-06] MEDS ORDERED: LISINOPRIL5 MG PO (18:30)
[2018-01-06] MEDS ORDERED: Ranitidine Hyd150 MG PO (18:31)
[2018-01-06] MEDS ORDERED: SPIRIVA18 MCG PO (18:32)
[2018-01-06] MEDS ORDERED: REMERON45 M1 PO (18:32)
[2018-01-06] MEDS ORDERED: CHLORZOXAZONE500 M2 PO (18:33)
[2018-01-06 20:00] VITALS: BP 115/39
[2018-01-07 00:36] VITALS: BP 106/35
[2018-01-07 06:27] LABS: HEMATOCRIT 19.5 % (37.0-47.0); HEMOGLOBIN 6.3 g/dl (12.0-16.0); MEAN CELL VOLUME 69.1 fl (81.0-99.0); MEAN CORPUSCULAR HGB 22.3 pg (27.0-31.0); MEAN CORPUSCULAR HGB CONC 32.3 g/dl (33.0-37.0); NUCLEATED RED BLOOD CELL 0.3 % (0.0-0.0); PLATELET COUNT AUTOMATED 176 10*3/uL (130-400); RED BLOOD COUNT 2.82 10*6/uL (4.10-5.10); RED CELL DISTRI WIDTH 27.6 % (0-14.5); WHITE BLOOD COUNT 7.5 10*3/uL (4.8-10.8)
[2018-01-07 06:49] LABS: CREATININE 1.41 mg/dL (0.55-1.02); PHOSPHOROUS 3.8 mg/dL (2.5-4.9); POTASSIUM 3.8 mmol/L (3.5-5.1)
[2018-01-07 06:54] LABS: THYROID STIM HORMONE (HS) 2.51 uIU/ml (0.358-4.75)
[2018-01-07 07:04] LABS: MICROCYTOSIS MODERATE; OVALOCYTES FEW; PLATELET SUFFICIENCY NORMAL (NORMAL); POLYCHROMASIA SLIGHT; TOTAL CELLS COUNTED 100 #CELLS
[2018-01-07 08:00] VITALS: BP 120/42
[2018-01-07 08:26] LABS: VITAMIN D, 25-HYDROXY 30.5 ng/mL (30-100)
[2018-01-07 12:00] VITALS: BP 140/44
[2018-01-07] MEDS ORDERED: HUMALOG 751 UNIT/0.0 SC (12:58)
[2018-01-07 16:00] VITALS: BP 120/42
[2018-01-07 20:00] VITALS: BP 128/40
[2018-01-08] VITALS (15 sets, daily range): BP systolic 110–142; BP diastolic 39–64
[2018-01-08 06:31] LABS: HEMATOCRIT 22.9 % (37.0-47.0); HEMOGLOBIN 7.4 g/dl (12.0-16.0); MEAN CELL VOLUME 71.6 fl (81.0-99.0); MEAN CORPUSCULAR HGB 23.1 pg (27.0-31.0); MEAN CORPUSCULAR HGB CONC 32.3 g/dl (33.0-37.0); NUCLEATED RED BLOOD CELL 0.5 % (0.0-0.0); PLATELET COUNT AUTOMATED 178 10*3/uL (130-400); RED CELL DISTRI WIDTH 27.5 % (0-14.5); WHITE BLOOD COUNT 8.2 10*3/uL (4.8-10.8)
[2018-01-08 06:56] LABS: BUN 24 mg/dl (7-24); CHLORIDE 100 mmol/L (98-107); CREATININE 0.96 mg/dL (0.55-1.02); POTASSIUM 3.6 mmol/L (3.5-5.1); SODIUM 136 mmol/L (136-145)
[2018-01-08 06:57] LABS: BASOPHILS 1 % (0-1); MICROCYTOSIS MODERATE; OVALOCYTES MODERATE; PLATELET SUFFICIENCY NORMAL (NORMAL); ROULEAUX MODERATE; SCHISTOCYTES FEW; TOTAL CELLS COUNTED 100 #CELLS
[2018-01-08 08:04] LABS: HEMATOCRIT 25.6 % (37.0-47.0); HEMOGLOBIN 8.3 g/dl (12.0-16.0)
[2018-01-08 20:31] LABS: HEMATOCRIT 30.3 % (37.0-47.0); HEMOGLOBIN 10.1 g/dl (12.0-16.0)
[2018-01-09] VITALS: BP 132/50
[2018-01-09 06:37] LABS: HEMATOCRIT 30.8 % (37.0-47.0); HEMOGLOBIN 10.2 g/dl (12.0-16.0); MEAN CELL VOLUME 74.6 fl (81.0-99.0); MEAN CORPUSCULAR HGB 24.7 pg (27.0-31.0); MEAN CORPUSCULAR HGB CONC 33.1 g/dl (33.0-37.0); NUCLEATED RED BLOOD CELL 0.1 10*3/uL (0.0-0.0); NUCLEATED RED BLOOD CELL 0.7 % (0.0-0.0); PLATELET COUNT AUTOMATED 189 10*3/uL (130-400); RED BLOOD COUNT 4.13 10*6/uL (4.10-5.10); RED CELL DISTRI WIDTH 25.3 % (0-14.5); WHITE BLOOD COUNT 7.4 10*3/uL (4.8-10.8)
[2018-01-09 07:05] LABS: CHLORIDE 100 mmol/L (98-107); POTASSIUM 3.6 mmol/L (3.5-5.1); SODIUM 138 mmol/L (136-145)
[2018-01-09 07:09] LABS: BUN 23 mg/dl (7-24); CREATININE 1.02 mg/dL (0.55-1.02)
[2018-01-09 07:35] LABS: MICROCYTOSIS SLIGHT; OVALOCYTES MODERATE; PLATELET SUFFICIENCY NORMAL (NORMAL); POLYCHROMASIA SLIGHT; TOTAL CELLS COUNTED 100 #CELLS
[2018-01-09 08:00] VITALS: BP 141/50
[2018-01-09 12:00] VITALS: BP 143/43
[2018-01-09 16:00] VITALS: BP 135/43
[2018-01-09 20:00] VITALS: BP 118/40
[2018-01-10] VITALS: BP 129/43
[2018-01-10 08:00] VITALS: BP 136/42
[2018-01-10 12:00] VITALS: BP 130/50
[2018-01-10 16:00] VITALS: BP 132/45
[2018-01-10 20:00] VITALS: BP 139/40
[2018-01-11] VITALS (9 sets, daily range): BP systolic 98–153; BP diastolic 37–53
[2018-01-12 00:10] VITALS: BP 147/45
[2018-01-12 07:18] LABS: HEMATOCRIT 31.2 % (37.0-47.0); HEMOGLOBIN 9.9 g/dl (12.0-16.0); MEAN CELL VOLUME 76.7 fl (81.0-99.0); MEAN CORPUSCULAR HGB 24.3 pg (27.0-31.0); MEAN CORPUSCULAR HGB CONC 31.7 g/dl (33.0-37.0); PLATELET COUNT AUTOMATED 174 10*3/uL (130-400); RED BLOOD COUNT 4.07 10*6/uL (4.10-5.10); RED CELL DISTRI WIDTH 25.9 % (0-14.5); WHITE BLOOD COUNT 6.2 10*3/uL (4.8-10.8)
[2018-01-12 07:38] LABS: TOTAL CELLS COUNTED 100 #CELLS
[2018-01-12 07:39] LABS: MICROCYTOSIS SLIGHT; OVALOCYTES FEW; PLATELET SUFFICIENCY NORMAL (NORMAL)
[2018-01-12 07:43] LABS: BUN 18 mg/dl (7-24); CHLORIDE 101 mmol/L (98-107); CREATININE 0.85 mg/dL (0.55-1.02); PHOSPHOROUS 3.6 mg/dL (2.5-4.9); POTASSIUM 3.5 mmol/L (3.5-5.1); SODIUM 139 mmol/L (136-145)
[2018-01-12 08:00] VITALS: BP 125/53
[2018-01-12 12:00] VITALS: BP 151/52
[2018-01-12 16:00] VITALS: BP 134/52
[2018-01-12 20:00] VITALS: BP 130/54
[2018-01-13] VITALS: BP 136/47
[2018-01-13 06:33] LABS: HEMATOCRIT 29.5 % (37.0-47.0); HEMOGLOBIN 9.3 g/dl (12.0-16.0); MEAN CORPUSCULAR HGB 24.3 pg (27.0-31.0); MEAN CORPUSCULAR HGB CONC 31.5 g/dl (33.0-37.0); PLATELET COUNT AUTOMATED 170 10*3/uL (130-400); RED BLOOD COUNT 3.83 10*6/uL (4.10-5.10); RED CELL DISTRI WIDTH 26.5 % (0-14.5); WHITE BLOOD COUNT 6.6 10*3/uL (4.8-10.8)
[2018-01-13 07:24] LABS: MICROCYTOSIS SLIGHT; OVALOCYTES FEW; PLATELET SUFFICIENCY NORMAL (NORMAL); TOTAL CELLS COUNTED 100 #CELLS
[2018-01-13 08:00] VITALS: BP 146/50
[2018-01-13 12:00] VITALS: BP 150/47
[2018-01-13 16:00] VITALS: BP 134/42
[2018-01-13 21:00] VITALS: BP 134/38
[2018-01-14] VITALS: BP 122/55
[2018-01-14 08:00] VITALS: BP 132/43
[2018-01-14 12:00] VITALS: BP 144/54
[2018-01-14 16:00] VITALS: BP 131/32
[2018-01-14] MEDS ORDERED: VANCOMYCIN1 GM/2502 IV (17:18)
[2018-01-14] MEDS ORDERED: AMERINET CHOICE1 GM IV (17:19)
[2018-01-14 20:00] VITALS: BP 152/58
[2018-01-15] VITALS: BP 141/46
[2018-01-15 07:57] LABS: BUN 21 mg/dl (7-24); CREATININE 0.86 mg/dL (0.55-1.02)
[2018-01-15 08:00] VITALS: BP 139/68
[2018-01-15 12:00] VITALS: BP 136/78
[2018-01-15 16:00] VITALS: BP 151/58
[2018-01-15 20:00] VITALS: BP 142/56
[2018-01-16] VITALS: BP 150/52
[2018-01-16 06:22] LABS: HEMATOCRIT 29.2 % (37.0-47.0); HEMOGLOBIN 9.5 g/dl (12.0-16.0); MEAN CELL VOLUME 77.5 fl (81.0-99.0); MEAN CORPUSCULAR HGB 25.2 pg (27.0-31.0); MEAN CORPUSCULAR HGB CONC 32.5 g/dl (33.0-37.0); PLATELET COUNT AUTOMATED 179 10*3/uL (130-400); RED BLOOD COUNT 3.77 10*6/uL (4.10-5.10); WHITE BLOOD COUNT 6.1 10*3/uL (4.8-10.8)
[2018-01-16 06:48] LABS: MICROCYTOSIS SLIGHT; OVALOCYTES MODERATE; PLATELET SUFFICIENCY NORMAL (NORMAL); POLYCHROMASIA SLIGHT; TOTAL CELLS COUNTED 100 #CELLS
[2018-01-16 08:00] VITALS: BP 139/48
[2018-01-16 12:00] VITALS: BP 130/40
[2018-01-16 16:00] VITALS: BP 133/47
[2018-01-16 20:13] VITALS: BP 136/43
[2018-01-17] VITALS: BP 143/49
[2018-01-17 08:00] VITALS: BP 140/53
[2018-01-17 12:00] VITALS: BP 152/58
[2018-01-17 16:00] VITALS: BP 160/61
[2018-01-17 20:20] VITALS: BP 131/52
[2018-01-18] VITALS: BP 125/41
[2018-01-18 06:23] LABS: CREATININE 1.12 mg/dL (0.55-1.02); POTASSIUM 3.5 mmol/L (3.5-5.1)
[2018-01-18 08:00] VITALS: BP 118/57
[2018-01-18 12:00] VITALS: BP 127/48
[2018-01-18 16:00] VITALS: BP 129/51
[2018-01-18 20:00] VITALS: BP 134/48
[2018-01-19] VITALS: BP 143/59
[2018-01-19 06:02] LABS: HEMATOCRIT 30.2 % (37.0-47.0); HEMOGLOBIN 9.5 g/dl (12.0-16.0); MEAN CELL VOLUME 79.1 fl (81.0-99.0); MEAN CORPUSCULAR HGB 24.9 pg (27.0-31.0); MEAN CORPUSCULAR HGB CONC 31.5 g/dl (33.0-37.0); PLATELET COUNT AUTOMATED 187 10*3/uL (130-400); RED BLOOD COUNT 3.82 10*6/uL (4.10-5.10); RED CELL DISTRI WIDTH 26.4 % (0-14.5); WHITE BLOOD COUNT 6.5 10*3/uL (4.8-10.8)
[2018-01-19 06:07] LABS: ALBUMIN 2.4 gm/dl (3.1-4.5); ALKALINE PHOSPHATASE 113 U/L (45-117); BUN 25 mg/dl (7-24); CHLORIDE 96 mmol/L (98-107); CREATININE 0.99 mg/dL (0.55-1.02); POTASSIUM 3.5 mmol/L (3.5-5.1); SGOT/AST 30 IU/L (3-35); SODIUM 134 mmol/L (136-145); TOTAL PROTEIN 7.3 gm/dL (6.4-8.2)
[2018-01-19 06:23] LABS: SGPT/ALT < 6 U/L (12-78)
[2018-01-19 06:34] LABS: BASOPHILS 1 % (0-1); PLATELET SUFFICIENCY NORMAL (NORMAL); TOTAL CELLS COUNTED 100 #CELLS
[2018-01-19 06:35] LABS: MICROCYTOSIS SLIGHT; OVALOCYTES MODERATE
[2018-01-19 08:00] VITALS: BP 129/43
[2018-01-19 12:00] VITALS: BP 137/46
[2018-01-19 16:00] VITALS: BP 150/59
[2018-01-19 20:00] VITALS: BP 140/46
[2018-01-20] VITALS: BP 143/41
[2018-01-20 08:00] VITALS: BP 126/46
[2018-01-20 12:00] VITALS: BP 130/50
[2018-01-20 16:00] VITALS: BP 144/57
[2018-01-20 20:00] VITALS: BP 149/54
[2018-01-21] VITALS: BP 139/54
[2018-01-21 08:00] VITALS: BP 126/50
[2018-01-21 12:00] VITALS: BP 137/50
[2018-01-21 16:00] VITALS: BP 125/43
[2018-01-21 20:00] VITALS: BP 148/52
[2018-01-22] VITALS: BP 139/47
[2018-01-22 05:56] LABS: HEMATOCRIT 26.8 % (37.0-47.0); HEMOGLOBIN 8.8 g/dl (12.0-16.0); MEAN CELL VOLUME 78.4 fl (81.0-99.0); MEAN CORPUSCULAR HGB 25.7 pg (27.0-31.0); MEAN CORPUSCULAR HGB CONC 32.8 g/dl (33.0-37.0); PLATELET COUNT AUTOMATED 195 10*3/uL (130-400); RED BLOOD COUNT 3.42 10*6/uL (4.10-5.10); RED CELL DISTRI WIDTH 26.1 % (0-14.5); WHITE BLOOD COUNT 6.7 10*3/uL (4.8-10.8)
[2018-01-22 06:20] LABS: BUN 26 mg/dl (7-24); CREATININE 0.99 mg/dL (0.55-1.02)
[2018-01-22 06:50] LABS: ATYPICAL LYMPHS 1 % (0-0); TOTAL CELLS COUNTED 100 #CELLS
[2018-01-22 06:51] LABS: PLATELET SUFFICIENCY NORMAL (NORMAL)
[2018-01-22 06:52] LABS: OVALOCYTES FEW
[2018-01-22 08:00] VITALS: BP 146/46
[2018-01-22 12:00] VITALS: BP 133/40
[2018-01-22 16:00] VITALS: BP 135/51
[2018-01-22 20:00] VITALS: BP 137/60
[2018-01-23] VITALS: BP 132/49
[2018-01-23 03:23] VITALS: BP 116/69
[2018-01-23 08:00] VITALS: BP 133/40
[2018-01-23 12:00] VITALS: BP 136/43
[2018-01-23 16:00] VITALS: BP 156/71
[2018-01-23 20:00] VITALS: BP 134/44
[2018-01-24] VITALS: BP 138/50
[2018-01-24 05:51] LABS: BUN 20 mg/dl (7-24); CHLORIDE 89 mmol/L (98-107); CREATININE 0.85 mg/dL (0.55-1.02); SODIUM 131 mmol/L (136-145)
[2018-01-24 06:09] LABS: HEMATOCRIT 25.8 % (37.0-47.0); HEMOGLOBIN 8.4 g/dl (12.0-16.0); MEAN CELL VOLUME 77.7 fl (81.0-99.0); MEAN CORPUSCULAR HGB 25.3 pg (27.0-31.0); MEAN CORPUSCULAR HGB CONC 32.6 g/dl (33.0-37.0); PLATELET COUNT AUTOMATED 190 10*3/uL (130-400); RED BLOOD COUNT 3.32 10*6/uL (4.10-5.10); RED CELL DISTRI WIDTH 25.7 % (0-14.5)
[2018-01-24 07:19] LABS: MICROCYTOSIS SLIGHT; PLATELET SUFFICIENCY NORMAL (NORMAL); ROULEAUX MODERATE; SCHISTOCYTES FEW; TOTAL CELLS COUNTED 100 #CELLS
[2018-01-24 08:00] VITALS: BP 142/45
[2018-01-24 12:00] VITALS: BP 126/49
[2018-01-24 16:00] VITALS: BP 125/68
[2018-01-24 20:00] VITALS: BP 132/42
[2018-01-25] VITALS: BP 110/50
[2018-01-25 06:38] LABS: HEMATOCRIT 25.5 % (37.0-47.0); HEMOGLOBIN 8.3 g/dl (12.0-16.0); MEAN CELL VOLUME 78.5 fl (81.0-99.0); MEAN CORPUSCULAR HGB 25.5 pg (27.0-31.0); MEAN CORPUSCULAR HGB CONC 32.5 g/dl (33.0-37.0); PLATELET COUNT AUTOMATED 181 10*3/uL (130-400); RED BLOOD COUNT 3.25 10*6/uL (4.10-5.10); RED CELL DISTRI WIDTH 25.3 % (0-14.5); WHITE BLOOD COUNT 5.3 10*3/uL (4.8-10.8)
[2018-01-25 06:59] LABS: ALBUMIN 2.3 gm/dl (3.1-4.5); BUN 19 mg/dl (7-24); CHLORIDE 89 mmol/L (98-107); CREATININE 0.72 mg/dL (0.55-1.02); POTASSIUM 3.8 mmol/L (3.5-5.1); SGOT/AST 26 IU/L (3-35); SODIUM 127 mmol/L (136-145)
[2018-01-25 07:00] LABS: ALKALINE PHOSPHATASE 121 U/L (45-117); TOTAL PROTEIN 6.9 gm/dL (6.4-8.2)
[2018-01-25 07:19] LABS: OVALOCYTES FEW; PLATELET SUFFICIENCY NORMAL (NORMAL); POLYCHROMASIA SLIGHT; TOTAL CELLS COUNTED 100 #CELLS
[2018-01-25 07:31] LABS: SGPT/ALT < 6 U/L (12-78)
[2018-01-25 08:00] VITALS: BP 123/57
[2018-01-25 12:00] VITALS: BP 144/57
[2018-01-25 16:00] VITALS: BP 156/49
[2018-01-25 20:00] VITALS: BP 121/68
[2018-01-26 00:32] VITALS: BP 126/51
[2018-01-26 05:58] LABS: ALBUMIN 2.3 gm/dl (3.1-4.5); ALKALINE PHOSPHATASE 126 U/L (45-117); BUN 24 mg/dl (7-24); CHLORIDE 92 mmol/L (98-107); CREATININE 0.98 mg/dL (0.55-1.02); SGOT/AST 25 IU/L (3-35); SODIUM 130 mmol/L (136-145); TOTAL PROTEIN 6.9 gm/dL (6.4-8.2); VANCOMYCIN TROUGH 17.6 ug/mL (10-20)
[2018-01-26 06:02] LABS: SGPT/ALT < 6 U/L (12-78)
[2018-01-26 06:09] LABS: HEMATOCRIT 26.6 % (37.0-47.0); HEMOGLOBIN 8.5 g/dl (12.0-16.0); MEAN CELL VOLUME 79.9 fl (81.0-99.0); MEAN CORPUSCULAR HGB 25.5 pg (27.0-31.0); PLATELET COUNT AUTOMATED 208 10*3/uL (130-400); RED BLOOD COUNT 3.33 10*6/uL (4.10-5.10); RED CELL DISTRI WIDTH 25.8 % (0-14.5)
[2018-01-26 06:31] LABS: BILIRUBIN NEGATIVE (NEGATIVE); BLOOD TRACE-LYSED (NEGATIVE); CLARITY CLEAR (CLEAR); COLOR YELLOW (YELLOW); GLUCOSE NEGATIVE (NEGATIVE); KETONE NEGATIVE (NEGATIVE); LEUKO ESTERASE 1+ (NEGATIVE); NITRITE NEGATIVE (NEGATIVE); PH 6.5 (5.0-9.0); SPECIFIC GRAVITY <= 1.005 (1.005-1.030); UROBILINOGEN 0.2 E.U./dl (0.2-1.0)
[2018-01-26 06:38] LABS: URINE CREATININE RANDOM 28.4 mg/dL
[2018-01-26 06:49] LABS: MICROCYTOSIS SLIGHT; OVALOCYTES FEW; PLATELET SUFFICIENCY NORMAL (NORMAL); POLYCHROMASIA SLIGHT; TOTAL CELLS COUNTED 100 #CELLS
[2018-01-26 08:00] VITALS: BP 117/47
[2018-01-26 08:14] LABS: BACTERIA 1+; WBC 21-30 wbc/hpf (0-5)
[2018-01-26] MEDS ORDERED: PROTONIX40 MG PO (15:01)
[2018-01-26] MEDS ORDERED: REMEDY CALAZIME4 GM T (15:01)
[2018-01-26] MEDS ORDERED: Insulin Lispro, Reco SC (15:01)
[2018-01-26] MEDS ORDERED: ARIPIPRAZOLE15 MG PO (15:01)
[2018-01-26] MEDS ORDERED: DULOXETINE HCL30 MG PO (15:01)
[2018-01-26] MEDS ORDERED: LACTINEX 0.2 MG1 TAB PO (15:01)
[2018-01-26] MEDS ORDERED: Nystatin Cream15 GM T (15:01)
[2018-01-26 16:00] VITALS: BP 114/89
[2018-01-26] MEDS ORDERED: VANCOMYCIN HYD750 MG IV (16:50)
[2018-01-26] MEDS ORDERED: MACROBID100 M1 PO (16:50)
== END 2018-01-26 18:21 | disposition other institution (70) | DRG 463 ==
LOC: ED 14:31 → EDHOLD 17:11 → 5E 17:11
PROVIDERS: Emergency Medicine; Hospitalist; Internal Medicine; Internal Medicine Hospice and Palliative Medicine; Nurse Practitioner; Physician Assistant; Student in an Organized Health Care Education/Training Program
PROC: 30233N1 Transfusion of Nonautologous Red Blood Cells into Peripheral Vein, Percutaneous Approach (ICD-10-PCS; 2018-01-08)
PROC: 0JBQ0ZZ Excision of Right Foot Subcutaneous Tissue and Fascia, Open Approach (ICD-10-PCS; principal; 2018-01-11)
PROC: 0QBL0ZX Excision of Right Tarsal, Open Approach, Diagnostic (ICD-10-PCS; 2018-01-11)
DX: M84.674A Pathological fracture in other disease, right foot, initial encounter for fracture (principal); E43 Unspecified severe protein-calorie malnutrition; L89.514 Pressure ulcer of right ankle, stage 4; M86.171 Other acute osteomyelitis, right ankle and foot; F33.2 Major depressive disorder, recurrent severe without psychotic features; E11.22 Type 2 diabetes mellitus with diabetic chronic kidney disease; E86.0 Dehydration; L97.416 Non-pressure chronic ulcer of right heel and midfoot with bone involvement without evidence of necrosis; I50.22 Chronic systolic (congestive) heart failure; E87.1 Hypo-osmolality and hyponatremia; I13.0 Hypertensive heart and chronic kidney disease with heart failure and stage 1 through stage 4 chronic kidney disease, or unspecified chronic kidney disease; E11.52 Type 2 diabetes mellitus with diabetic peripheral angiopathy with gangrene; M86.671 Other chronic osteomyelitis, right ankle and foot; D46.4 Refractory anemia, unspecified; E66.01 Morbid (severe) obesity due to excess calories; E11.42 Type 2 diabetes mellitus with diabetic polyneuropathy; E11.621 Type 2 diabetes mellitus with foot ulcer; B19.20 Unspecified viral hepatitis C without hepatic coma; R79.89 Other specified abnormal findings of blood chemistry; E83.42 Hypomagnesemia; N18.3 Chronic kidney disease, stage 3 (moderate); J44.9 Chronic obstructive pulmonary disease, unspecified; E11.69 Type 2 diabetes mellitus with other specified complication; R70.0 Elevated erythrocyte sedimentation rate; D46.9 Myelodysplastic syndrome, unspecified; E11.65 Type 2 diabetes mellitus with hyperglycemia; S91.301A Unspecified open wound, right foot, initial encounter; X58.XXXA Exposure to other specified factors, initial encounter; F03.90 Unspecified dementia, unspecified severity, without behavioral disturbance, psychotic disturbance, mood disturbance, and anxiety; E78.5 Hyperlipidemia, unspecified; I25.10 Atherosclerotic heart disease of native coronary artery without angina pectoris; D50.8 Other iron deficiency anemias; G25.81 Restless legs syndrome; R00.1 Bradycardia, unspecified; E87.8 Other disorders of electrolyte and fluid balance, not elsewhere classified; Z79.4 Long term (current) use of insulin; Z79.899 Other long term (current) drug therapy; Z79.82 Long term (current) use of aspirin; Z95.810 Presence of automatic (implantable) cardiac defibrillator; Z95.1 Presence of aortocoronary bypass graft; Z90.710 Acquired absence of both cervix and uterus; Z98.51 Tubal ligation status; Z90.49 Acquired absence of other specified parts of digestive tract; Z95.5 Presence of coronary angioplasty implant and graft; Z82.49 Family history of ischemic heart disease and other diseases of the circulatory system; Z84.1 Family history of disorders of kidney and ureter; Z82.69 Family history of other diseases of the musculoskeletal system and connective tissue; Z82.5 Family history of asthma and other chronic lower respiratory diseases; Z83.6 Family history of other diseases of the respiratory system; Z80.1 Family history of malignant neoplasm of trachea, bronchus and lung; Z82.3 Family history of stroke; I25.2 Old myocardial infarction; Z87.891 Personal history of nicotine dependence; Y93.89 Activity, other specified; Y92.89 Other specified places as the place of occurrence of the external cause; Y99.8 Other external cause status; Z68.31 Body mass index [BMI] 31.0-31.9, adult

== ENCOUNTER 2018-02-07 01:22 | Inpatient (IN) | payer OTHER ==
[2018-02-07] VITALS (10 sets, daily range): BP systolic 107–131; BP diastolic 38–57
[~2018-02-07] VITALS: Ht 154.9 cm; Wt 75.0 kg
--- NOTE | ~2018-02-07 | WRIGHTHP ---
[place], [place] PATIENT HISTORY AND PHYSICAL EXAM NAME: CHRISTIAN HELLER [facility] #: [id number] UNIT #: [id number] ROOM: 421 DOCTOR: IBAN GUZMAN MD BIRTHDATE: [birth year] DOS: 02/07/2018 HISTORY OF PRESENT ILLNESS: The patient has been admitted to hospital with chest pain and difficulty in breathing. She came to Emergency Department as she was not feeling good and on investigation was found to be having chest pain with difficulty in breathing and needed to be admitted to the hospital. The patient was only recently discharged from the hospital when she was admitted to hospital with right diabetic ulcer with osteomyelitis and nonhealing ulcer from which she healed quite satisfactorily. PAST MEDICAL HISTORY: The patient has past history of severe diabetes mellitus with diabetic neuropathy, with chronic renal failure, elevated erythrocyte sedimentation rate, chronic nonhealing ulcers, peripheral vascular obstructive disease, morbid obesity, hypertension, dementia, hepatitis C, hyperlipidemia, COPD, systolic congestive heart failure, coronary heart disease, refractory anemia due to multiple medical problems, restless leg syndrome, bradycardia, lymphocytopenia, hyponatremia. The patient has been admitted to the hospital multiple times due to all these multiple medical problems. PAST SURGICAL HISTORY: The patient has history of femoropopliteal bypass for peripheral vascular disease, history of left-sided carotid endarterectomy, history of abscess of the breast drainage, CABG, hysterectomy, installation of ICD pacemaker and nonhealing ulcer of the foot. FAMILY HISTORY: The patient's father had wound disease, hypertension, congestive heart failure, chronic kidney disease, at age 60. Mother has history of lung cancer, hypertension, congestive heart failure, emphysema, thyroid problem, at age 54. SOCIAL HISTORY: The patient is , living with her . ALLERGIES: There are no known allergies. MEDICATIONS: The patient is taking following medications at present: Abilify 15 mg daily, aspirin 81 mg daily, Lipitor 40 mg daily, bumetanide 2 mg daily, Sinemet 25/100 every 8 hours, carvedilol 25 mg twice daily, Parafon Forte 500 mg p.r.n., Plavix 17 mg daily, gabapentin 800 mg twice daily, Lopid 600 mg twice daily, insulin 75/25 twice daily, lisinopril 5 mg daily, , Remeron 45 mg at bedtime, oxycodone 5 mg 6 hours p.r.n., Protonix 40 mg daily and Spiriva 1 time daily. PHYSICAL EXAMINATION: GENERAL: The patient is conscious and alert. VITAL SIGNS: Her blood pressure is 131/50, pulse 79, respirations 18, temperature 97.9. HEENT: Her ENT examination is unremarkable. No glandular enlargement. NECK: Trachea is central. Neck veins are not distended. Pacemaker in position. [place], [place] PATIENT HISTORY AND PHYSICAL EXAM NAME: CHRISTIAN HELLER UNIT #: [id number] ROOM: [facility] [place] DOCTOR: IBAN GUZMAN MD BIRTHDATE: [birth year] HEART: Regular, no murmur. LUNGS: Having increased expiration. No crepitation. ABDOMEN: Soft. Liver and spleen not palpable. No area of tenderness, no mass palpable. EXTREMITIES: The patient has chronic ulcers of the feet, having peripheral vascular disease with neuropathy of the both lower limbs. LABORATORY DATA: CBC done in Emergency shows hypochromic anemia, which is chronic with hemoglobin 8.3, hematocrit 26.3. Chest x-ray is not showing any acute changes. Protime is 10.9. Comprehensive metabolic profile is showing BUN 26, creatinine 123, GFR 44. Sodium 134, albumin 2.4. SGPT , alkaline phosphatase of 125. Troponin level is less than 0.15. Repeated troponin level on 2 different occasions less than 0.15, indicating patient is not having any acute cardiac problem. DIAGNOSES: Chest pain with difficulty in breathing with atherosclerotic heart disease; hypertension; hyperlipidemia; status post coronary bypass and having stent placement and also had pacemaker installed; diabetes mellitus, insulin-dependent; peripheral vascular disease; peripheral neuropathy; morbid obesity; chronic kidney disease; dementia; hepatitis; COPD; history of congestive heart failure in the past; refractory anemia. PLAN OF TREATMENT: The patient will be admitted to hospital. We will do serial EKGs and isoenzymes and will be started on her home medication, will be watched very closely. IBAN GUZMAN MD CM:HISPHYS:PATIENT HISTORY AND PHYSICAL EXAMINATION 1056 1215 IBAN GUZMAN MD 02/07/18 1215 interface
[~2018-02-07 01:22] MED LIST changes: +AMERINET CHOICE1 GM IV; +ARIPIPRAZOLE15 MG PO; +ASPIRIN81 MG PO; +CARVEDILOL25 MG PO; +CHLORZOXAZONE500 M2 PO; +DULOXETINE HCL30 MG PO; +Insulin Lispro, Reco SC; +LACTINEX 0.2 MG1 TAB PO; +MACROBID100 M1 PO; +Nystatin Cream15 GM T; +PROTONIX40 M1 IV; +PROTONIX40 MG PO; +REMEDY CALAZIME4 GM T; +ROXICODONE5 MG PO; +Ranitidine Hyd150 MG PO; +VANCOMYCIN HYD750 MG IV; +VANCOMYCIN1 GM/2502 IV
[2018-02-07 02:00] LABS: BASO % 0.3 % (0.0-1.0); EOS # 0.3 10*3/uL (0.0-0.4); EOS % 2.9 % (1.0-4.0); HEMATOCRIT 26.3 % (37.0-47.0); HEMOGLOBIN 8.3 g/dl (12.0-16.0); LYMPH # 1.6 10*3/uL (1.3-4.4); LYMPH % 15.9 % (27.0-41.0); MEAN CELL VOLUME 81.9 fl (81.0-99.0); MEAN CORPUSCULAR HGB 25.9 pg (27.0-31.0); MEAN CORPUSCULAR HGB CONC 31.6 g/dl (33.0-37.0); MEAN PLATELET VOLUME 9.6 fl (9.6-12.3); MONO # 0.9 10*3/uL (0.1-1.0); MONO % 8.2 % (3.0-9.0); NEUT # 7.4 10*3/uL (2.3-7.9); NEUT % 72.1 % (47.0-73.0); PLATELET COUNT AUTOMATED 198 10*3/uL (130-400); RED BLOOD COUNT 3.21 10*6/uL (4.10-5.10); RED CELL DISTRI WIDTH 24.2 % (0-14.5); WHITE BLOOD COUNT 10.3 10*3/uL (4.8-10.8)
[2018-02-07 02:08] LABS: ACT PARTIAL THROMBO TIME 33.8 SECONDS (20.8-31.5)
[2018-02-07 02:16] LABS: ALBUMIN 2.4 gm/dl (3.1-4.5); ALKALINE PHOSPHATASE 125 U/L (45-117); BUN 26 mg/dl (7-24); CHLORIDE 98 mmol/L (98-107); CREATININE 1.23 mg/dL (0.55-1.02); POTASSIUM 3.6 mmol/L (3.5-5.1); SGOT/AST 26 IU/L (3-35); SGPT/ALT 7 U/L (12-78); SODIUM 134 mmol/L (136-145); TOTAL PROTEIN 7.2 gm/dL (6.4-8.2)
[2018-02-07 02:18] LABS: TROPONIN I < 0.015 ng/ml (<0.045)
[2018-02-08] VITALS (7 sets, daily range): BP systolic 98–130; BP diastolic 46–87
[2018-02-08 05:52] LABS: ALBUMIN 2.4 gm/dl (3.1-4.5); ALKALINE PHOSPHATASE 122 U/L (45-117); BUN 26 mg/dl (7-24); CHLORIDE 97 mmol/L (98-107); CREATININE 1.23 mg/dL (0.55-1.02); POTASSIUM 3.8 mmol/L (3.5-5.1); SGOT/AST 24 IU/L (3-35); SODIUM 134 mmol/L (136-145); TOTAL PROTEIN 7.2 gm/dL (6.4-8.2)
[2018-02-08 05:59] LABS: SGPT/ALT < 6 U/L (12-78)
[2018-02-08 06:28] LABS: BASO % 0.4 % (0.0-1.0); EOS # 0.3 10*3/uL (0.0-0.4); EOS % 3.4 % (1.0-4.0); HEMATOCRIT 28.9 % (37.0-47.0); HEMOGLOBIN 9.1 g/dl (12.0-16.0); LYMPH # 1.6 10*3/uL (1.3-4.4); MEAN CELL VOLUME 84.3 fl (81.0-99.0); MEAN CORPUSCULAR HGB 26.5 pg (27.0-31.0); MEAN CORPUSCULAR HGB CONC 31.5 g/dl (33.0-37.0); MEAN PLATELET VOLUME 10.2 fl (9.6-12.3); MONO # 0.8 10*3/uL (0.1-1.0); MONO % 10.1 % (3.0-9.0); NEUT # 4.7 10*3/uL (2.3-7.9); NEUT % 64.2 % (47.0-73.0); PLATELET COUNT AUTOMATED 173 10*3/uL (130-400); RED BLOOD COUNT 3.43 10*6/uL (4.10-5.10); RED CELL DISTRI WIDTH 22.1 % (0-14.5); WHITE BLOOD COUNT 7.4 10*3/uL (4.8-10.8)
[2018-02-09] VITALS: BP 116/46
[2018-02-09 08:00] VITALS: BP 112/42
[2018-02-09 12:00] VITALS: BP 133/46
== END 2018-02-09 16:00 | disposition other institution (70) | DRG 683 ==
LOC: ED 01:22 → EDHOLD 03:13 → 4E 03:13
PROVIDERS: Emergency Medicine Emergency Medical Services; Internal Medicine
PROC: 30233N1 Transfusion of Nonautologous Red Blood Cells into Peripheral Vein, Percutaneous Approach (ICD-10-PCS; principal; 2018-02-07)
DX: N17.0 Acute kidney failure with tubular necrosis (principal); I13.0 Hypertensive heart and chronic kidney disease with heart failure and stage 1 through stage 4 chronic kidney disease, or unspecified chronic kidney disease; E11.22 Type 2 diabetes mellitus with diabetic chronic kidney disease; I95.9 Hypotension, unspecified; D46.4 Refractory anemia, unspecified; E11.42 Type 2 diabetes mellitus with diabetic polyneuropathy; E66.01 Morbid (severe) obesity due to excess calories; E11.51 Type 2 diabetes mellitus with diabetic peripheral angiopathy without gangrene; E87.1 Hypo-osmolality and hyponatremia; I50.22 Chronic systolic (congestive) heart failure; M94.0 Chondrocostal junction syndrome [Tietze]; I25.118 Atherosclerotic heart disease of native coronary artery with other forms of angina pectoris; F03.90 Unspecified dementia, unspecified severity, without behavioral disturbance, psychotic disturbance, mood disturbance, and anxiety; E78.5 Hyperlipidemia, unspecified; D50.0 Iron deficiency anemia secondary to blood loss (chronic); D72.810 Lymphocytopenia; E87.8 Other disorders of electrolyte and fluid balance, not elsewhere classified; B18.2 Chronic viral hepatitis C; N18.3 Chronic kidney disease, stage 3 (moderate); J44.9 Chronic obstructive pulmonary disease, unspecified; G25.81 Restless legs syndrome; Z95.1 Presence of aortocoronary bypass graft; Z95.820 Peripheral vascular angioplasty status with implants and grafts; Z95.5 Presence of coronary angioplasty implant and graft; Z68.31 Body mass index [BMI] 31.0-31.9, adult; Z90.710 Acquired absence of both cervix and uterus; Z95.810 Presence of automatic (implantable) cardiac defibrillator; Z79.4 Long term (current) use of insulin; Z79.899 Other long term (current) drug therapy; Z79.02 Long term (current) use of antithrombotics/antiplatelets; Z82.49 Family history of ischemic heart disease and other diseases of the circulatory system; Z84.1 Family history of disorders of kidney and ureter; Z80.1 Family history of malignant neoplasm of trachea, bronchus and lung; Z83.6 Family history of other diseases of the respiratory system

== ENCOUNTER 2018-02-25 15:03 | Inpatient (IN) | payer OTHER ==
[~2018-02-25] VITALS: Ht 154.9 cm; Wt 77.3 kg
--- NOTE | ~2018-02-25 | DS ---
[place], [place] DISCHARGE SUMMARY [id number] UNIT #: [id number] ROOM: 409 DOCTOR: IBAN GUZMAN MD BIRTHDATE: [birth year] DOS: 02/27/2018 HOSPITAL COURSE: The patient, who has been admitted to the hospital with severe anemia and we did blood transfusion on the day of discharge. Her hemoglobin is 9.8. The patient is feeling better. She is denying any chest pain or difficulty in breathing. No pain in abdomen. No nausea. No vomiting. Her vital signs are stable. She is a known case of diabetes mellitus with insulin-dependent with ASHD, hypertension, chronic renal failure, obesity, hyperlipidemia and multiple medical problems with diabetic neuropathy and she will continue taking her medicines, which she had been taking before and she is a resident of a snf where she will be discharged to. IBAN GUZMAN MD CM:[place] 0813 0855 IBAN GUZMAN MD 02/28/18 0840 interface
--- NOTE | ~2018-02-25 | PR ---
[place], [place] PROGRESS NOTE NAME: CHRISTIAN HELLER UNIT #: [id number] ROOM: 409 DOCTOR: IBAN GUZMAN MD BIRTHDATE: [birth year] DOS: 02/28/2018 SUBJECTIVE: The patient has been admitted to the hospital with multiple medical problems, with severe anemia, with renal failure and she is waiting for her discharge, to be discharged to the care home. It will be done possibly tomorrow. For her severe anemia, the patient received multiple blood transfusions. Her hemoglobin is better. Her vital signs are stable. She denies any chest pain, no difficulty breathing, no nausea, no vomiting. IBAN GUZMAN MD CM:PNTRANS 1705 2029 IBAN GUZMAN MD 03/01/18 0749 interface
[2018-02-25 16:00] VITALS: BP 109/57
[2018-02-25] MEDS ORDERED: SKIN PROTECTAN113 GM T (17:52)
[2018-02-25] MEDS ORDERED: BENADRYL ITCH28.3 G1 T (17:54)
[2018-02-25] MEDS ORDERED: DOXYCYCLINE100 M3 PO (18:04)
[2018-02-25] MEDS ORDERED: DULCOLAX10 M1 R (18:05)
[2018-02-25] MEDS ORDERED: FLEET ENEMA 13133 ML R (18:06)
[2018-02-25] MEDS ORDERED: MOM30 M1 PO (18:06)
[2018-02-25] MEDS ORDERED: COMPLETE SENIO1 EACH PO (18:07)
[2018-02-25] MEDS ORDERED: VITAMIN C500 M8 PO (18:08)
[2018-02-25 20:21] VITALS: BP 109/57
[2018-02-26] VITALS (12 sets, daily range): BP systolic 120–146; BP diastolic 41–91
[2018-02-27] VITALS: BP 98/54
[2018-02-27 06:22] LABS: BASO % 0.4 % (0.0-1.0); EOS # 0.3 10*3/uL (0.0-0.4); EOS % 3.5 % (1.0-4.0); HEMATOCRIT 28.9 % (37.0-47.0); HEMOGLOBIN 9.3 g/dl (12.0-16.0); LYMPH # 1.8 10*3/uL (1.3-4.4); LYMPH % 21.1 % (27.0-41.0); MEAN CELL VOLUME 88.7 fl (81.0-99.0); MEAN CORPUSCULAR HGB 28.5 pg (27.0-31.0); MEAN CORPUSCULAR HGB CONC 32.2 g/dl (33.0-37.0); MEAN PLATELET VOLUME 10.3 fl (9.6-12.3); MONO # 0.9 10*3/uL (0.1-1.0); MONO % 11.1 % (3.0-9.0); NEUT # 5.3 10*3/uL (2.3-7.9); NEUT % 63.1 % (47.0-73.0); PLATELET COUNT AUTOMATED 127 10*3/uL (130-400); RED BLOOD COUNT 3.26 10*6/uL (4.10-5.10); RED CELL DISTRI WIDTH 18.9 % (0-14.5); WHITE BLOOD COUNT 8.4 10*3/uL (4.8-10.8)
[2018-02-27 08:00] VITALS: BP 125/50
[2018-02-27 16:00] VITALS: BP 108/38
[2018-02-27 20:00] VITALS: BP 120/40
[2018-02-28] VITALS: BP 119/47
[2018-02-28 08:00] VITALS: BP 109/44
[2018-02-28 12:00] VITALS: BP 120/42
[2018-02-28 16:00] VITALS: BP 110/48
[2018-02-28 20:00] VITALS: BP 104/42
[2018-03-01] VITALS: BP 125/41
[2018-03-01 08:00] VITALS: BP 135/46
[2018-03-01 12:00] VITALS: BP 123/47
[2018-03-01 12:32] LABS: BASO % 0.3 % (0.0-1.0); EOS # 0.2 10*3/uL (0.0-0.4); HEMATOCRIT 26.7 % (37.0-47.0); HEMOGLOBIN 8.2 g/dl (12.0-16.0); LYMPH # 1.4 10*3/uL (1.3-4.4); LYMPH % 19.6 % (27.0-41.0); MEAN CELL VOLUME 90.8 fl (81.0-99.0); MEAN CORPUSCULAR HGB 27.9 pg (27.0-31.0); MEAN CORPUSCULAR HGB CONC 30.7 g/dl (33.0-37.0); MEAN PLATELET VOLUME 9.2 fl (9.6-12.3); MONO # 0.7 10*3/uL (0.1-1.0); MONO % 9.1 % (3.0-9.0); NEUT # 4.9 10*3/uL (2.3-7.9); NEUT % 67.2 % (47.0-73.0); PLATELET COUNT AUTOMATED 114 10*3/uL (130-400); RED BLOOD COUNT 2.94 10*6/uL (4.10-5.10); RED CELL DISTRI WIDTH 18.1 % (0-14.5); WHITE BLOOD COUNT 7.3 10*3/uL (4.8-10.8)
[2018-03-01 12:49] LABS: ALBUMIN 2.3 gm/dl (3.1-4.5); CREATININE 1.4 mg/dL (0.55-1.02); POTASSIUM 4.3 mmol/L (3.5-5.1); TOTAL PROTEIN 6.9 gm/dL (6.4-8.2)
[2018-03-01 16:00] VITALS: BP 128/58
[2018-03-01 20:00] VITALS: BP 117/39
[2018-03-02] VITALS: BP 123/51
[2018-03-02 03:20] VITALS: BP 124/47
[2018-03-02 03:35] VITALS: BP 121/43
[2018-03-02 08:00] VITALS: BP 128/43
== END 2018-03-02 14:49 | disposition other institution (70) | DRG 811 ==
LOC: TRNFUSION 15:03 → 4E 15:50 → TRNFUSION 16:00 → 4E 03-02 14:49
PROVIDERS: Internal Medicine
PROC: 30233N1 Transfusion of Nonautologous Red Blood Cells into Peripheral Vein, Percutaneous Approach (ICD-10-PCS; principal; 2018-02-26)
DX: D50.0 Iron deficiency anemia secondary to blood loss (chronic) (principal); L89.614 Pressure ulcer of right heel, stage 4; E43 Unspecified severe protein-calorie malnutrition; L89.152 Pressure ulcer of sacral region, stage 2; E11.22 Type 2 diabetes mellitus with diabetic chronic kidney disease; M86.60 Other chronic osteomyelitis, unspecified site; E66.01 Morbid (severe) obesity due to excess calories; E11.42 Type 2 diabetes mellitus with diabetic polyneuropathy; I13.0 Hypertensive heart and chronic kidney disease with heart failure and stage 1 through stage 4 chronic kidney disease, or unspecified chronic kidney disease; I50.20 Unspecified systolic (congestive) heart failure; K21.9 Gastro-esophageal reflux disease without esophagitis; I25.118 Atherosclerotic heart disease of native coronary artery with other forms of angina pectoris; E78.5 Hyperlipidemia, unspecified; M81.0 Age-related osteoporosis without current pathological fracture; E11.51 Type 2 diabetes mellitus with diabetic peripheral angiopathy without gangrene; R07.9 Chest pain, unspecified; F03.90 Unspecified dementia, unspecified severity, without behavioral disturbance, psychotic disturbance, mood disturbance, and anxiety; L89.622 Pressure ulcer of left heel, stage 2; N18.3 Chronic kidney disease, stage 3 (moderate); J44.9 Chronic obstructive pulmonary disease, unspecified; I25.2 Old myocardial infarction; Z95.0 Presence of cardiac pacemaker; Z95.1 Presence of aortocoronary bypass graft; Z90.710 Acquired absence of both cervix and uterus; Z87.891 Personal history of nicotine dependence; Z82.49 Family history of ischemic heart disease and other diseases of the circulatory system; Z83.6 Family history of other diseases of the respiratory system; Z84.1 Family history of disorders of kidney and ureter; Z80.1 Family history of malignant neoplasm of trachea, bronchus and lung; Z84.89 Family history of other specified conditions; Z79.899 Other long term (current) drug therapy; Z79.82 Long term (current) use of aspirin; Z79.4 Long term (current) use of insulin; Z68.33 Body mass index [BMI] 33.0-33.9, adult

== ENCOUNTER 2018-03-14 20:24 | Inpatient (IN) | payer OTHER ==
[~2018-03-14] VITALS: Ht 154.9 cm; Wt 78.2 kg
--- NOTE | ~2018-03-14 | EKG ---
[place], [place] ELECTROCARDIOGRAM REPORT NAME: CHRISTIAN HELLER UNIT #: [id number] ROOM: [facility] DOCTOR: KANG LYNN MD BIRTHDATE: [birth year] DOS: 03/14/2018 TIME: 2340 hours. Sinus tachycardia 130 beats per minute. Atrial sensing and unipolar ventricular pacing KANG LYNN MD CM:EKGRPT:ELECTROCARDIOGRAM REPORT 1634 1755 KANG LYNN MD
--- NOTE | ~2018-03-14 | EKG ---
[place], [place] ELECTROCARDIOGRAM REPORT NAME: CHRISTIAN HELLER UNIT #: [id number] [place]: [facility] [place] DOCTOR: KANG LYNN MD BIRTHDATE: [birth year] DOS: 03/15/2018 TIME: 0310 hours. Sinus tachycardia at 124 beats per minute. Atrial sensing and ventricle pacing. No significant change from ECG of the previous day. KANG LYNN MD CM:EKGRPT:ELECTROCARDIOGRAM REPORT 1634 1756 KANG LYNN MD
--- NOTE | ~2018-03-14 | EKG ---
[place], [place] ELECTROCARDIOGRAM REPORT NAME: CHRISTIAN HELLER UNIT #: [id number] ROOM: [facility] DOCTOR: AKNG LYNN MD BIRTHDATE: [birth year] DOS: 03/15/2018 TIME: 0733 hours. Sinus tachycardia at 116 beats per minute. Atrial sensing and unipolar ventricular pacing is present. No significant change from an ECG done earlier in the day. KANG LYNN MD CM:EKGRPT:ELECTROCARDIOGRAM REPORT 1634 1757 KANG LYNN MD
--- NOTE | ~2018-03-14 | EKG ---
[place], [place] ELECTROCARDIOGRAM REPORT NAME: CHRISTIAN HELLER UNIT #: [id number] ROOM: [facility] DOCTOR: KANG LYNN MD BIRTHDATE: [birth year] DOS: 03/14/2018 TIME: 2030 hours. Sinus tachycardia at 132 beats per minute. The possibility of atrial flutter is present. Complete left bundle branch block. Occasional ventricular p KANG LYNN MD CM:EKGRPT:ELECTROCARDIOGRAM REPORT 1634 1701 KANG LYNN MD
[2018-03-14 20:24] VITALS: BP 143/68
[~2018-03-14 20:24] MED LIST changes: +BENADRYL ITCH28.3 G1 T; +DULCOLAX10 M1 R; +FLEET ENEMA 13133 ML R; +MOM30 M1 PO; +MULTIPLE VITAM1 EAC1 PO; +RANITIDINE HYD300 MG PO; -Ranitidine Hyd150 MG PO; +SKIN PROTECTAN113 GM T; +VITAMIN C500 M8 PO
[2018-03-14 20:53] LABS: BASO # 0.1 10*3/uL (0.0-0.1); BASO % 0.6 % (0.0-1.0); EOS # 0.3 10*3/uL (0.0-0.4); EOS % 3.3 % (1.0-4.0); HEMATOCRIT 28.5 % (37.0-47.0); HEMOGLOBIN 9.1 g/dl (12.0-16.0); LYMPH # 1.8 10*3/uL (1.3-4.4); LYMPH % 22.8 % (27.0-41.0); MEAN CELL VOLUME 89.6 fl (81.0-99.0); MEAN CORPUSCULAR HGB 28.6 pg (27.0-31.0); MEAN CORPUSCULAR HGB CONC 31.9 g/dl (33.0-37.0); MONO # 0.7 10*3/uL (0.1-1.0); NEUT % 63.7 % (47.0-73.0); PLATELET COUNT AUTOMATED 179 10*3/uL (130-400); RED BLOOD COUNT 3.18 10*6/uL (4.10-5.10); RED CELL DISTRI WIDTH 15.8 % (0-14.5); WHITE BLOOD COUNT 7.8 10*3/uL (4.8-10.8)
[2018-03-14 21:01] VITALS: BP 146/70
[2018-03-14 21:03] LABS: ACT PARTIAL THROMBO TIME 29.1 SECONDS (20.8-31.5)
[2018-03-14 21:09] LABS: ALBUMIN 2.6 gm/dl (3.1-4.5); ALKALINE PHOSPHATASE 115 U/L (45-117); BUN 36 mg/dl (7-24); CHLORIDE 97 mmol/L (98-107); CREATININE 1.09 mg/dL (0.55-1.02); POTASSIUM 3.7 mmol/L (3.5-5.1); SGOT/AST 32 IU/L (3-35); SGPT/ALT 8 U/L (12-78); SODIUM 135 mmol/L (136-145); TOTAL PROTEIN 7.5 gm/dL (6.4-8.2)
[2018-03-14 21:20] LABS: TROPONIN I 0.162 ng/ml (<0.045)
[2018-03-14 22:09] VITALS: BP 142/54
[2018-03-14 22:36] VITALS: BP 137/55
[2018-03-14 23:05] VITALS: BP 145/52
[2018-03-14 23:05] LABS: BILIRUBIN NEGATIVE (NEGATIVE); BLOOD TRACE-LYSED (NEGATIVE); CLARITY SL CLOUDY (CLEAR); COLOR YELLOW (YELLOW); GLUCOSE NEGATIVE (NEGATIVE); KETONE NEGATIVE (NEGATIVE); LEUKO ESTERASE 2+ (NEGATIVE); NITRITE NEGATIVE (NEGATIVE); PH 6.5 (5.0-9.0); UROBILINOGEN 0.2 E.U./dl (0.2-1.0)
[2018-03-14 23:18] LABS: EPITHELIAL CELLS 0-2; RBC 0-2 rbc/hpf (0-2)
[2018-03-14 23:19] LABS: BACTERIA 2+; WBC TNTC wbc/hpf (0-5)
[2018-03-14 23:20] VITALS: BP 127/58
[2018-03-15 01:21] VITALS: BP 112/64
[2018-03-15 01:40] VITALS: BP 137/87
[2018-03-15] MEDS ORDERED: PRO-STAT 64 3030 ML PO (01:53)
[2018-03-15] MEDS ORDERED: HYDROGEL3000 GM T (01:57)
[2018-03-15] MEDS ORDERED: [UNRECOGNIZED DRUG - OTHER] T (02:00)
[2018-03-15] MEDS ORDERED: OXYGEN NAS (02:03)
[2018-03-15] MEDS ORDERED: AUGMENTIN 875875 MG PO (02:08)
[2018-03-15] MEDS ORDERED: CYMBALTA30 MG PO (02:12)
[2018-03-15] MEDS ORDERED: HUMALOG100 UNIT/2 SQ (02:18)
[2018-03-15] MEDS ORDERED: ACIDOPHILUS LA1 EACH PO (02:19)
[2018-03-15] MEDS ORDERED: NYSTATIN CREAM15 GM T (02:27)
[2018-03-15] MEDS ORDERED: POTASSIUM CHLO10 ME5 PO (02:31)
[2018-03-15] MEDS ORDERED: Sinemet Cr 25-11 TAB PO (02:33)
[2018-03-15] MEDS ORDERED: ZINC SULFATE220 M2 PO (02:35)
[2018-03-15 04:00] VITALS: BP 117/57
[2018-03-15 06:28] LABS: BASO % 0.4 % (0.0-1.0); EOS # 0.3 10*3/uL (0.0-0.4); EOS % 4.1 % (1.0-4.0); HEMATOCRIT 24.7 % (37.0-47.0); HEMOGLOBIN 7.9 g/dl (12.0-16.0); LYMPH # 1.9 10*3/uL (1.3-4.4); LYMPH % 25.3 % (27.0-41.0); MEAN CELL VOLUME 90.5 fl (81.0-99.0); MEAN CORPUSCULAR HGB 28.9 pg (27.0-31.0); MEAN PLATELET VOLUME 11.3 fl (9.6-12.3); MONO # 0.8 10*3/uL (0.1-1.0); MONO % 10.7 % (3.0-9.0); NEUT # 4.3 10*3/uL (2.3-7.9); NEUT % 58.3 % (47.0-73.0); PLATELET COUNT AUTOMATED 153 10*3/uL (130-400); RED BLOOD COUNT 2.73 10*6/uL (4.10-5.10); RED CELL DISTRI WIDTH 16.1 % (0-14.5); WHITE BLOOD COUNT 7.3 10*3/uL (4.8-10.8)
[2018-03-15 06:31] LABS: CKMB 18.4 ng/ml (0.5-3.6)
[2018-03-15 06:39] LABS: ALBUMIN 2.4 gm/dl (3.1-4.5); ALKALINE PHOSPHATASE 101 U/L (45-117); BUN 35 mg/dl (7-24); CHLORIDE 102 mmol/L (98-107); POTASSIUM 3.8 mmol/L (3.5-5.1); SGOT/AST 45 IU/L (3-35); SGPT/ALT 6 U/L (12-78); SODIUM 138 mmol/L (136-145); TOTAL PROTEIN 6.8 gm/dL (6.4-8.2)
[2018-03-15 08:00] VITALS: BP 133/64
[2018-03-15 12:00] VITALS: BP 110/45
[2018-03-15 14:15] LABS: CKMB 16.5 ng/ml (0.5-3.6)
== END 2018-03-15 14:45 | disposition short-term general hospital (02) | DRG 871 ==
LOC: ED 20:24 → EDHOLD 23:37 → ICCU 03-15 00:20
PROVIDERS: Internal Medicine; Student in an Organized Health Care Education/Training Program
DX: A41.9 Sepsis, unspecified organism (principal); I21.4 Non-ST elevation (NSTEMI) myocardial infarction; I13.0 Hypertensive heart and chronic kidney disease with heart failure and stage 1 through stage 4 chronic kidney disease, or unspecified chronic kidney disease; J18.9 Pneumonia, unspecified organism; E11.22 Type 2 diabetes mellitus with diabetic chronic kidney disease; E11.40 Type 2 diabetes mellitus with diabetic neuropathy, unspecified; I50.22 Chronic systolic (congestive) heart failure; J44.0 Chronic obstructive pulmonary disease with (acute) lower respiratory infection; N39.0 Urinary tract infection, site not specified; M86.679 Other chronic osteomyelitis, unspecified ankle and foot; E87.1 Hypo-osmolality and hyponatremia; R65.20 Severe sepsis without septic shock; E66.01 Morbid (severe) obesity due to excess calories; D64.9 Anemia, unspecified; N18.3 Chronic kidney disease, stage 3 (moderate); R80.9 Proteinuria, unspecified; E11.69 Type 2 diabetes mellitus with other specified complication; I25.10 Atherosclerotic heart disease of native coronary artery without angina pectoris; E78.5 Hyperlipidemia, unspecified; B18.2 Chronic viral hepatitis C; E11.65 Type 2 diabetes mellitus with hyperglycemia; R45.1 Restlessness and agitation; Z86.19 Personal history of other infectious and parasitic diseases; I25.2 Old myocardial infarction; Z95.1 Presence of aortocoronary bypass graft; Z79.82 Long term (current) use of aspirin; Z79.4 Long term (current) use of insulin; Z95.810 Presence of automatic (implantable) cardiac defibrillator; Z95.820 Peripheral vascular angioplasty status with implants and grafts; Z90.710 Acquired absence of both cervix and uterus; Z82.49 Family history of ischemic heart disease and other diseases of the circulatory system; Z84.1 Family history of disorders of kidney and ureter; Z83.49 Family history of other endocrine, nutritional and metabolic diseases; Z80.1 Family history of malignant neoplasm of trachea, bronchus and lung; Z83.6 Family history of other diseases of the respiratory system

== ENCOUNTER 2018-04-06 15:48 | Inpatient (IN) | payer OTHER ==
[~2018-04-06] VITALS: Ht 154.9 cm; Wt 89.1 kg
[2018-04-06] VITALS (18 sets, daily range): BP systolic 93–119; BP diastolic 29–61
--- NOTE | ~2018-04-06 | EKG ---
[place], [place] ELECTROCARDIOGRAM REPORT NAME: CHRISTIAN HELLER UNIT #: [id number] ROOM: 421 DOCTOR: KANG LYNN MD BIRTHDATE: [birth year] DOS: 04/06/2018 TIME: 1553 hours. FINDINGS: Normal sinus rhythm with atrial sensing and unipolar ventricular pacing. KANG LYNN MD CM:EKGRPT:ELECTROCARDIOGRAM REPORT 1106 1228 KANG LYNN MD
--- NOTE | ~2018-04-06 | EKG ---
[place], [place] ELECTROCARDIOGRAM REPORT NAME: CHRISTIAN HELLER UNIT #: [id number] ROOM: 421 DOCTOR: KANG LYNN MD BIRTHDATE: [birth year] DOS: 04/06/2018 TIME: 1919 hours. FINDINGS: Normal AV sequential pacing at 60 beats per minute. When compared with an ECG done earlier in the day, normal sinus rhythm has been replaced by atrial pacing. KANG LYNN MD CM:EKGRPT:ELECTROCARDIOGRAM REPORT 1106 1230 KANG LYNN MD
--- NOTE | ~2018-04-06 | PR ---
[place], [place] PROGRESS NOTE NAME: CHRISTIAN HELLER UNIT #: [id number] ROOM: 421 DOCTOR: KANG LYNN MD BIRTHDATE: [birth year] DOS: 04/12/2018 SUBJECTIVE: She is lying in bed, depressed and quiet. She has no chest pain or palpitations. Her breathing is fine. Her appetite is poor. PHYSICAL EXAMINATION: GENERAL: The patient who has flat affect and quiet, which is her demeanor. She looks pale. VITAL SIGNS: Pulse is regular at 60, blood pressure 123/49. NECK: JVP 16 is extremely high. LUNGS: She had a lot of crackles in both lungs. EXTREMITIES: Edema of the torso and the thighs and the buttocks is extreme and very little edema of the feet. LABORATORY DATA: Creatinine was 1.26 yesterday, today's lab is pending. IMPRESSION: 1. This patient has acute on chronic systolic heart failure and intravenous fluids and blood transfusion poorly added to this. She was started on IV furosemide yesterday 40 b.i.d. and fluid balance in -1.8 liters. 2. Chronic kidney disease. 3. Severe anemia. RECOMMENDATIONS: Please continue using IV furosemide for a few more days. She had dose may have to be increased and if her creatinine function does deteriorate somewhat, I would not mine much in this extreme edema around the torso and the thighs need to be taken care of. KANG LYNN MD CM:PNTRANS [id number] KANG LYNN MD 04/29/18 0820 interface
--- NOTE | ~2018-04-06 | EKG ---
[place], [place] ELECTROCARDIOGRAM REPORT NAME: CHRISTIAN HELLER UNIT #: [id number] ROOM: 421 DOCTOR: KANG LYNN MD BIRTHDATE: [birth year] DOS: 04/06/2018 TIME: 21:37:10 hours. FINDINGS: AV sequential pacing at 61 beats per minute. No significant change from an ECG done at 1919 hours of the same day. KANG LYNN MD CM:EKGRPT:ELECTROCARDIOGRAM REPORT 1106 1232 KANG LYNN MD
--- NOTE | ~2018-04-06 | PR ---
[place], [place] PROGRESS NOTE NAME: CHRISTIAN HELLER UNIT #: [id number] ROOM: 421 DOCTOR: KANG LYNN MD BIRTHDATE: [birth year] DOS: 04/11/2018 SUBJECTIVE: This patient was admitted to the hospital with severe anemia and had blood transfusion. She had GI workup done in [facility] by Dr. Sharma. She is feeling comfortable, does have no chest pain or palpitation. She does not feel she is short of breath. Her appetite has been poor. PHYSICAL EXAMINATION: GENERAL: This is a patient who is lying in bed. She is pale looking. VITAL SIGNS: Temperature is normal. Pulse is regular. NECK: JVP is greater than 15 cm of water. It is particularly noticeable when she is propped up properly. CARDIAC: Auscultation with no murmurs. LUNGS: She has crackles in both lungs with diminished breath sounds. She has extreme edema of the torso and the thighs and trace pedal edema. LABORATORY DATA: Hemoglobin is 9 grams. BUN 36, creatinine 1.26, glucose 179 mg/dL, potassium 3.5. IMPRESSION: 1. This patient has ischemic cardiomyopathy. 2. Coronary artery disease with remote coronary artery bypass graft surgery. 3. She has severe heart failure on clinical examination. 4. Moderate anemia. She has received blood transfusion, which probably worsened heart failure. RECOMMENDATIONS: This patient has gained 25 pounds in weight since admission and I think she now is volume overloaded/has systolic heart failure and I strongly recommend IV furosemide for several days now. Potassium and renal function needs to be monitored. PS: I think clinical examination by other physicians seem to be somewhat suboptimal. [place], [place] PROGRESS NOTE NAME: CHRISTIAN HELLER UNIT #: [id number] ROOM: 421 DOCTOR: KANG LYNN MD BIRTHDATE: [birth year] KANG LYNN MD CM:PNTRANS 0800 50 KANG LYNN MD 04/11/18 235 interface
--- NOTE | ~2018-04-06 | O ---
[place], [place] OPERATIVE NOTE NAME: CHRISTIAN HELLER UNIT #: [id number] ROOM: 421 DOCTOR: CHRISTO GUZMAN MD BIRTHDATE: [birth year] DOS: 04/09/2018 GASTROENDOSCOPIC REPORT HISTORY OF PRESENT ILLNESS: The patient has presented with GI bleed and undergoing investigation. The patient has been seen. Consultation has been dictated on 04/07/2018. PAST MEDICAL HISTORY: Associated with diabetes mellitus, coronary artery disease, and obesity. Past medical history associated hepatitis C, chronic renal disease, hyperlipidemia, hypertension, hyperglycemia, non-STEMI, myocardial infarction, status post pacemaker. The patient has been on aspirin 324 mg daily. Cardiology clearance has been obtained. PAST SURGICAL HISTORY: Endarterectomy, CABG. SOCIAL HISTORY: Past smoker. Nonalcohol consumer. FAMILY HISTORY: Hypertension, CHF, lung CA, COPD in both parents. ALLERGIES: No known medication. MEDICATIONS: Medication list was reviewed including Clopidogrel and including aspirin that has been placed on hold. PROCEDURE: Today's procedure part of investigation is panendoscopy plus hemostasis therapy with epinephrine injection and Resolution clips x 2. PREMEDICATION: Propofol. SCOPE: Olympus forward-viewing gastroscope Q10 video. REPORT: After putting the patient in left lateral position and application of lubricant to the scope, the scope was introduced in the gastric pouch. A large clot which appears to be a nearly fresh was noticed. This clot is approximately 15-20 mL in its volume. Meticulously the clot was a thrombectomized with the use of basket and pushed away from the greater curvature to mid gastric pouch to expose the bleeding site. The bleeding site was identified. Visible vessel in mid lesser curvature, which was filling up flow of blood fresh into the greater curvature was noticed. The area was targeted with epinephrine 2 mL in the flank of the vasculature and two Resolution clips were applied. The bleeding ceased. Photographic series obtained. Ice cold water gastric lavage was performed. Duodenal bulb, second and third part within normal limits. The patient extubated, tolerated the procedure well. IMPRESSION: Bleeding visible vessel in the lesser curvature, status post [place], [place] OPERATIVE NOTE NAME: CHRISTIAN HELLER UNIT #: [id number] ROOM: 421 DOCTOR: CHRISTO GUZMAN MD BIRTHDATE: [birth year] hemostasis therapy with epinephrine injection and Resolution clips x 2. PLAN AND DISCUSSION: Protonix IV 40 mg b.i.d., sucralfate 2 g slurry q.6 hours, 2 hours before meals and at bedtime, Gaviscon 15 mL intermittently to be used alternatively with Carafate every 6 hours, 3 hours apart from each other and we are going to hold aspirin for sure and clopidogrel at this stage both on hold. Aggressive ulcer therapy to rejuvenate the mucosal layer of the gastric pouch at least. Thank you very much indeed. Cause of the GI bleed, upper GI; therefore, we will cancelled colonoscopy as was planned. DIET: Going to remain only ice cream, milk shake, diabetic form, and ice water, ice cold noncarbonated noncaffeinated liquids. CHRISTO GUZMAN MD CM:OPRECORD:OPERATIVE NOTE 1616 1644 CHRISTO GUZMAN MD 04/27/18 0757 interface
--- NOTE | ~2018-04-06 | PR ---
[place], [place] PROGRESS NOTE [id number] UN[facility] #: [id number] ROOM: 421 DOCTOR: KANG LYNN MD BIRTHDATE: [birth year] DOS: 04/14/2018 SUBJECTIVE: She feels fairly comfortable. She has not had any palpitation, dizziness, weakness. Her appetite is poor. Mood is fairly decent. PHYSICAL EXAMINATION: GENERAL: The patient looks pale. She is alert. VITAL SIGNS: Pulse is 54 and regular, blood pressure 126/60. NECK: Jugular veins are markedly distended. EXTREMITIES: She has extreme edema of the torso and the thighs and moderate edema of the lower part of the legs and very little edema of feet. LUNGS: Breath sounds are diminished with rhonchi and some crackles in both lungs. ABDOMEN: Difficult to examine because is very edematous. LABORATORY DATA: BUN is 12, creatinine is 1.09. IMPRESSION: 1. This patient has a moderate severe ischemic cardiomyopathy and had a coronary artery bypass graft surgery in the remote past. 2. She has severe systolic heart failure even at this time. RECOMMENDATIONS: I think this patient need to stay in the hospital for a few more days and she needs aggressive diuresis with larger doses of loop diuretic intravenously. If she is sent home, I would prefer torsemide and the choice of loop diuretic since it has better absorption and is long acting. I would like to see her in my office in about one to two weeks. KANG LYNN MD CM:PNTRANS 22 31 KANG LYNN MD 04/14/181930 interface
--- NOTE | ~2018-04-06 | PR ---
[place], [place] PROGRESS NOTE [id number] UNIT #: [id number] ROOM: 421 DOCTOR: BRANDY GOINS MD BIRTHDATE: [birth year] DOS: 04/10/2018 SUBJECTIVE: The patient was seen and examined. She is awake and alert, on nasal cannula. She is very comfortable. She remains in the ICU. PHYSICAL EXAMINATION: VITAL SIGNS: Temperature 98.2, pulse 81, respiratory rate 22, blood pressure 145/59. HEENT: Shows no JVD. LUNGS: Diminished breath sounds. No wheeze. HEART: Normal S1, S2. No rub, thrill or gallop. ABDOMEN: Soft, nontender. EXTREMITIES: Had trace to 1+ edema. SKIN: Showed no rash. LABORATORY DATA: Hemoglobin 9.1, white count of 5.6, platelets of 60. Sodium 125, potassium 3.9, CO2 24, BUN 47, creatinine 1.5, glucose 140, calcium 8.1, phosphorus 3.7, magnesium 1.7. ASSESSMENT AND PLAN: 1. Acute kidney injury. The patient's renal function is slowly improving. Continue to follow labs. 2. Hyponatremia. This is slowly improving as well. Avoid rapid correction. Loop diuretics only. Would avoid thiazide. 3. Anemia/gastrointestinal bleed. Transfuse as needed. Continue ongoing supportive care. 4. Thrombocytopenia. Follow platelets. 5. Questionable pneumonia. The patient is on antibiotics. BRANDY GOINS MD CM:PNTRANS 1519 0628 BRANDY GOINS MD 04/11/18 0627 interface
--- NOTE | ~2018-04-06 | PR ---
[place], [place] PROGRESS NOTE NAME: CHRISTIAN HELLER UNIT #: [id number] ROOM: 421 DOCTOR: BRANDY GOINS MD BIRTHDATE: [birth year] DOS: 04/11/2018 SUBJECTIVE: The patient was seen and examined. She was awake and alert. She was out of the ICU. She denies shortness of breath. She is lying comfortably in bed. PHYSICAL EXAMINATION: VITAL SIGNS: Temperature 97.8, pulse 122, respiratory rate 22, blood pressure 129/68. HEENT: Shows no JVD. LUNGS: Diminished breath sounds with no wheeze. HEART: Normal S1, S2. No rub. ABDOMEN: Soft, nontender. EXTREMITIES: Had 1+ edema. SKIN: Showed no rash. LABORATORY DATA: Hemoglobin 9.0, white count is 7.1, platelets of 65. Sodium 128, potassium 3.5, CO2 of 24, BUN 36, creatinine 1.26, glucose 179, calcium 8.0, albumin 2.3. ASSESSMENT AND PLAN: 1. Acute kidney injury with continued slow improvement. Continue to follow labs. Replace electrolytes as needed. 2. Hyponatremia. This continues to slowly improve without rapid correction. Would give loop diuretics only and avoid thiazides. 3. Anemia/gastrointestinal bleed. Transfuse as needed. Supportive care ongoing. 4. Thrombocytopenia. Continue to follow platelets. 5. Questionable pneumonia. The patient is on antibiotics. BRANDY GOINS MD CM:PNTRANS 1302 0017 BRANDY GOINS MD 04/12/18 0015 interface
--- NOTE | ~2018-04-06 | PR ---
[place], [place] PROGRESS NOTE [id number] UNIT #: [id number] ROOM: 421 DOCTOR: IBAN GUZMAN MD BIRTHDATE: [birth year] DOS: 04/11/2018 SUBJECTIVE: The patient has been admitted to the hospital with acute GI bleeding, which was stopped by Dr. Sharma by doing gastroscopy examination and by putting clips on the bleeding site. Patient is denying any chest pain, no difficulty breathing, no nausea, no vomiting, no tarry stool today. She had normal bowel movement today. She is tolerating a liquid diet fairly good and is not complaining of anything acute troubling to her. She is also having multiple medical problems including ASHD, hypertension, bradycardia, severe anemia, thrombocytopenia, cardiomegaly, renal failure, pulmonary edema, diabetes mellitus, diabetic neuropathy, diabetic ulcers of her left heel and back, coronary heart disease, COPD and emphysema, and due to multiple medical problems her overall health condition is very poor. Her comprehensive metabolic profile today showed glucose 79, BUN 36, creatinine 1.26, GFR 43, sodium 128, potassium 3.5, chloride 95. Her CBC today showed white count 7100, hemoglobin 9, hematocrit 28.4. OBJECTIVE: HEART: Regular. CHEST: Clear. No creps or rhonchi. ABDOMEN: Soft. No tenderness. IBAN GUZMAN MD CM:PNTRANS 0917 0017 IBAN GUZMAN MD 04/12/18 0015 interface
--- NOTE | ~2018-04-06 | PR ---
[place], [place] PROGRESS NOTE NAME: CHRISTIAN HELLER UNIT #: [id number] ROOM: 421 DOCTOR: KELLEY LAKHANI MD BIRTHDATE: [birth year] DOS: 04/13/2018 SUBJECTIVE: The patient is 63 years old, examined here. The patient is lying in bed, depressed and quiet. She denies any complaints. Breathing is fine. Her appetite is very poor. No angina, shortness of breath or palpitations and appears very comfortable. OBJECTIVE: GENERAL: The patient is lying flat. VITAL SIGNS: Regular rate, blood pressure is 130/70. JVP is normal. LUNGS: A few coarse crackles. HEART: Heart sounds are regular. NEUROLOGIC: Moving all extremities. EXTREMITIES: No edema. LABORATORY DATA: Creatinine is 1.2. Hemoglobin 9.1, hematocrit 28.4. Sodium 128, potassium 3.9, creatinine is 1.27. The patient has a MediPort, site is okay. REVIEW OF SYSTEMS: Somewhat limited. IMPRESSION: The patient with gastrointestinal bleed, hyponatremia, congestive heart failure, bradycardia, anemia. RECOMMENDATIONS: Monitor the sodium very closely. Probably fluid restriction is appropriate because the patient is already on Lasix also and hyponatremic. Monitor the sodium closely and we will follow up. KELLEY LAKHANI MD CM:PNTRANS 0742 1127 KELLEY LAKHANI MD 04/13/18 1125 interface
--- NOTE | ~2018-04-06 | PR ---
[place], [place] PROGRESS NOTE NAME: [id number] UNIT #: [id number] ROOM: 421 DOCTOR: IBAN GUZMAN MD BIRTHDATE: [birth year] DOS: SUBJECTIVE: The patient has been admitted to ICU with acute GI bleed due to ulcer in her stomach with history of congestive heart failure, hypotension and bradycardia, severe anemia, thrombocytopenia, cardiomegaly, renal failure, pulmonary edema, diabetes mellitus, diabetic neuropathy, diabetic ulcer of the left heel and buttock wound, pressure ulcer, coronary heart disease, COPD with emphysema. The patient is feeling somewhat better. She is sitting very comfortably in bed. She denies any chest pain and any difficulty in breathing. The patient has undergone EGD by Dr. Sharma it was found the patient is depressed, GI bleed, which was controlled by putting some clips over there and at present, patient is feeling alright. Not in any distress and her basic metabolic profile today showed glucose 140, BUN 47, creatinine 1.51, GFR 35 due to chronic renal failure. CBC showed white count of 5600, hemoglobin 9.9, hematocrit 27.7. It is stable. OBJECTIVE: VITAL SIGNS: Her blood pressure is 158/74, pulse 83, respirations 19, temperature 97.9. ABDOMEN: The patient is progressing and she will be moved from the unit to the regular floor Med/Surg. IBAN GUZMAN MD CM:PNTRANS 1721 0644 IBAN GUZMAN MD 04/11/18 0643 interface
--- NOTE | ~2018-04-06 | CON ---
[place], [place] REPORT OF CONSULTATION NAME[id number] UNIT #: [id number] ROOM: [facility] DOCTOR: KANG LYNN MD BIRTHDATE: [birth year] DOS: 04/08/2018 HISTORY OF PRESENT ILLNESS: The patient is well known to me. She is a 63-year-old -[place] woman with a history of longstanding diabetes mellitus, had some obvious complications and coronary artery disease and had multivessel CABG in the remote past. Her LV function had been around 40-45% for quite some time and had been lower than that previously. She had a slight increase in troponin I level and a couple of weeks ago I performed a diagnostic heart catheterization on her. LERNER to LAD was patent. Vein graft to one of the OM branches was patent. Two grafts were occluded with collaterals from the left system to the RCA, which was occluded. She developed acute renal insufficiency with a creatinine that creeped up significantly and eventually almost came down to baseline. While she was in [place], she developed a severe anemia with hemoglobin dropping to about 6.5 mg/dL. She required 2 units of packed RBCs and the hemoglobin stabilized. Dr. Sharma did an EGD and a colonoscopy on her last month and I believe nothing acute was identified. She also has had essential hypertension, chronic kidney disease, chronic anemia and physical disability. She does not walk anymore. She has COPD and had hepatitis A in the past, morbid obesity. She came to the hospital because she had some jabbing pain in the anterior part of the chest, which lasts only for a few seconds, each time it occurred. There is no chest pain, heaviness or tightness. She had some shortness of breath, but no loss of conscious or palpitation. The AICD has not discharged. PHYSICAL EXAMINATION: GENERAL: This revealed a patient who is alert, but she at times not able to give me precise information about where she was recently and she looks pale. She is not diaphoretic. VITAL SIGNS: Pulse is 68, regular. Monitor shows normal sinus rhythm and ventricular pacing. NECK: JVP is about 8-10 cm. CHEST: Crackles are present in both lungs with reduced breath sounds. EXTREMITIES: Minimal edema in the lower extremities. LABORATORY DATA: Troponin I level is less than 0.015, few times. Hemoglobin now is 7.7 g/dL and creatinine 1.9. It was around 2, two weeks ago, when she was in [facility]. IMPRESSION: 1. This patient is with this coronary artery disease and remote coronary artery bypass graft surgery, has some sharp stabbing pains, which are noncardiac. She has ruled out for acute myocardial infarction. No further cardiac workup is warranted. 2. Severe anemia is present. She had upper and lower endoscopic examination in [facility] couple of weeks ago and was unremarkable. Dr. Sharma is on the case again to re-evaluate this patient. 3. She has an AICD, which has been functioning normally. [place], [place] REPORT OF CONSULTATION NAME: CHRISTIAN HELLER UNIT #: [id number] ROOM: [facility] DOCTOR: KANG LYNN MD BIRTHDATE: [birth year] KANG LYNN MD CM:CONSTR:REPORT OF CONSULTATION 1158 04/09/18 0455 interface
[~2018-04-06 15:48] MED LIST changes: +ACIDOPHILUS LA1 EACH PO; +CYMBALTA30 MG PO; +HUMALOG100 UNIT/2 SQ; +HYDROGEL3000 GM T; +NYSTATIN CREAM15 GM T; +POTASSIUM CHLO10 ME5 PO; +PRO-STAT 64 3030 ML PO; -SKIN PROTECTAN113 GM T; +Sinemet Cr 25-11 TAB PO; +ZINC SULFATE220 M2 PO; +[UNRECOGNIZED DRUG - OTHER] T; +[UNRECOGNIZED DRUG - REMARK] T
[2018-04-06 16:24] LABS: HEMATOCRIT 18.4 % (37.0-47.0); MEAN CELL VOLUME 91.1 fl (81.0-99.0); MEAN CORPUSCULAR HGB 29.2 pg (27.0-31.0); MEAN CORPUSCULAR HGB CONC 32.1 g/dl (33.0-37.0); MEAN PLATELET VOLUME 11.3 fl (9.6-12.3); PLATELET COUNT AUTOMATED 71 10*3/uL (130-400); RED BLOOD COUNT 2.02 10*6/uL (4.10-5.10); RED CELL DISTRI WIDTH 16.9 % (0-14.5)
[2018-04-06 16:34] LABS: ACT PARTIAL THROMBO TIME 32.8 SECONDS (20.8-31.5); INTERNATIONAL NORM RATIO 1.3 (2.0-3.5)
[2018-04-06 16:45] LABS: ALBUMIN 2.1 gm/dl (3.1-4.5); ALKALINE PHOSPHATASE 87 U/L (45-117); BUN 64 mg/dl (7-24); CHLORIDE 89 mmol/L (98-107); CREATININE 1.91 mg/dL (0.55-1.02); SGOT/AST 31 IU/L (3-35); SODIUM 123 mmol/L (136-145); TOTAL PROTEIN 5.8 gm/dL (6.4-8.2)
[2018-04-06 16:48] LABS: SGPT/ALT < 6 U/L (12-78); TROPONIN I < 0.015 ng/ml (<0.045)
[2018-04-06 16:56] LABS: BASOPHILS 1 % (0-1); PLATELET SUFFICIENCY LOW (NORMAL); TOTAL CELLS COUNTED 100 #CELLS
[2018-04-06 16:57] LABS: MICROCYTOSIS SLIGHT; POLYCHROMASIA SLIGHT
[2018-04-06 16:59] LABS: HEMOGLOBIN 5.9 g/dl (12.0-16.0)
[2018-04-06 19:43] LABS: BILIRUBIN NEGATIVE (NEGATIVE); BLOOD NEGATIVE (NEGATIVE); CLARITY CLEAR (CLEAR); COLOR YELLOW (YELLOW); GLUCOSE NEGATIVE (NEGATIVE); KETONE NEGATIVE (NEGATIVE); LEUKO ESTERASE TRACE (NEGATIVE); NITRITE NEGATIVE (NEGATIVE); SPECIFIC GRAVITY <= 1.005 (1.005-1.030); UROBILINOGEN 0.2 E.U./dl (0.2-1.0)
[2018-04-06] MEDS ORDERED: ABILIFY15 MG PO (19:44)
[2018-04-06] MEDS ORDERED: BENADRYL ITCH28.3 G1 T (19:48)
[2018-04-06] MEDS ORDERED: VITAMIN D34000 UNIT PO (19:50)
[2018-04-06 19:56] LABS: BACTERIA TRACE; YEAST 1+
[2018-04-06] MEDS ORDERED: NITROSTAT0.4 MG SL (20:03)
[2018-04-06] MEDS ORDERED: SYMB160 INH (20:06)
[2018-04-06] MEDS ORDERED: PROAIR HFA8.5 GM INH (20:06)
[2018-04-07] VITALS (91 sets, daily range): BP systolic 80–132; BP diastolic 27–68
[2018-04-07 06:05] LABS: MEAN CELL VOLUME 91.3 fl (81.0-99.0); MEAN CORPUSCULAR HGB 29.6 pg (27.0-31.0); MEAN CORPUSCULAR HGB CONC 32.4 g/dl (33.0-37.0); MEAN PLATELET VOLUME 11.7 fl (9.6-12.3); PLATELET COUNT AUTOMATED 83 10*3/uL (130-400); RED BLOOD COUNT 1.96 10*6/uL (4.10-5.10); RED CELL DISTRI WIDTH 17.2 % (0-14.5); WHITE BLOOD COUNT 7.5 10*3/uL (4.8-10.8)
[2018-04-07 06:11] LABS: ACT PARTIAL THROMBO TIME 33.3 SECONDS (20.8-31.5); INTERNATIONAL NORM RATIO 1.2 (2.0-3.5)
[2018-04-07 06:15] LABS: ALBUMIN 2.1 gm/dl (3.1-4.5); BUN 63 mg/dl (7-24)
[2018-04-07 06:32] LABS: BASOPHILS 2 % (0-1); TOTAL CELLS COUNTED 100 #CELLS
[2018-04-07 06:33] LABS: PLATELET SUFFICIENCY LOW (NORMAL); POLYCHROMASIA SLIGHT
[2018-04-07 06:35] LABS: HEMATOCRIT 17.9 % (37.0-47.0); HEMOGLOBIN 5.8 g/dl (12.0-16.0)
[2018-04-07 07:01] LABS: ALKALINE PHOSPHATASE 80 U/L (45-117); CHLORIDE 89 mmol/L (98-107); CHOLESTEROL 69 mg/dL (<200); CREATININE 1.92 mg/dL (0.55-1.02); FREE T4 0.59 ng/dl (0.76-1.46); HDL CHOLESTEROL 30 mg/dl (40-60); LDL CHOLESTEROL 18 mg/dL (9-159); PHOSPHOROUS 3.9 mg/dL (2.5-4.9); POTASSIUM 4.6 mmol/L (3.5-5.1); SGOT/AST 34 IU/L (3-35); SODIUM 124 mmol/L (136-145); TOTAL PROTEIN 5.8 gm/dL (6.4-8.2); TRIGLYCERIDES 104 mg/dl (<150); VLDL CHOLESTEROL 21 mg/dL (6-40)
[2018-04-07 07:08] LABS: SGPT/ALT < 6 U/L (12-78)
[2018-04-07 09:36] LABS: VITAMIN D, 25-HYDROXY 33.3 ng/mL (30-100)
[2018-04-07 17:09] LABS: HEMATOCRIT 25.8 % (37.0-47.0); HEMOGLOBIN 8.6 g/dl (12.0-16.0)
[2018-04-08] VITALS (21 sets, daily range): BP systolic 103–140; BP diastolic 33–81
[2018-04-08 05:53] LABS: POTASSIUM 4.2 mmol/L (3.5-5.1)
[2018-04-08 05:55] LABS: CREATININE 1.9 mg/dL (0.55-1.02); PHOSPHOROUS 3.8 mg/dL (2.5-4.9)
[2018-04-08 06:15] LABS: BASO % 0.3 % (0.0-1.0); EOS # 0.2 10*3/uL (0.0-0.4); EOS % 3.8 % (1.0-4.0); HEMATOCRIT 23.6 % (37.0-47.0); HEMOGLOBIN 7.7 g/dl (12.0-16.0); LYMPH # 1.1 10*3/uL (1.3-4.4); LYMPH % 18.6 % (27.0-41.0); MEAN CORPUSCULAR HGB 28.7 pg (27.0-31.0); MEAN CORPUSCULAR HGB CONC 32.6 g/dl (33.0-37.0); MEAN PLATELET VOLUME 11.4 fl (9.6-12.3); MONO # 0.8 10*3/uL (0.1-1.0); MONO % 12.6 % (3.0-9.0); NEUT # 3.9 10*3/uL (2.3-7.9); NEUT % 63.9 % (47.0-73.0); NUCLEATED RED BLOOD CELL 0.3 % (0.0-0.0); PLATELET COUNT AUTOMATED 74 10*3/uL (130-400); RED BLOOD COUNT 2.68 10*6/uL (4.10-5.10); RED CELL DISTRI WIDTH 17.7 % (0-14.5); WHITE BLOOD COUNT 6.1 10*3/uL (4.8-10.8)
[2018-04-08 06:21] LABS: MEAN CELL VOLUME 88.1 fl (81.0-99.0)
[2018-04-09] VITALS (7 sets, daily range): BP systolic 116–147; BP diastolic 39–78
[2018-04-09 05:56] LABS: BASO % 0.2 % (0.0-1.0); EOS # 0.1 10*3/uL (0.0-0.4); EOS % 2.4 % (1.0-4.0); HEMATOCRIT 27.1 % (37.0-47.0); LYMPH # 0.9 10*3/uL (1.3-4.4); LYMPH % 15.8 % (27.0-41.0); MEAN CELL VOLUME 87.4 fl (81.0-99.0); MEAN CORPUSCULAR HGB CONC 33.2 g/dl (33.0-37.0); MEAN PLATELET VOLUME 11.5 fl (9.6-12.3); MONO # 0.7 10*3/uL (0.1-1.0); MONO % 11.7 % (3.0-9.0); NEUT # 4.1 10*3/uL (2.3-7.9); NEUT % 68.9 % (47.0-73.0); PLATELET COUNT AUTOMATED 62 10*3/uL (130-400); RED CELL DISTRI WIDTH 16.5 % (0-14.5); WHITE BLOOD COUNT 5.9 10*3/uL (4.8-10.8)
[2018-04-09 06:01] LABS: CREATININE 1.79 mg/dL (0.55-1.02); POTASSIUM 3.9 mmol/L (3.5-5.1)
[2018-04-10] VITALS: BP 131/59
[2018-04-10 04:08] VITALS: BP 133/54
[2018-04-10 05:39] LABS: CREATININE 1.51 mg/dL (0.55-1.02); PHOSPHOROUS 3.5 mg/dL (2.5-4.9); POTASSIUM 3.9 mmol/L (3.5-5.1)
[2018-04-10 05:55] LABS: BASO % 0.2 % (0.0-1.0); EOS # 0.1 10*3/uL (0.0-0.4); EOS % 1.8 % (1.0-4.0); HEMATOCRIT 27.7 % (37.0-47.0); HEMOGLOBIN 9.1 g/dl (12.0-16.0); LYMPH # 0.9 10*3/uL (1.3-4.4); LYMPH % 15.9 % (27.0-41.0); MEAN CELL VOLUME 87.9 fl (81.0-99.0); MEAN CORPUSCULAR HGB 28.9 pg (27.0-31.0); MEAN CORPUSCULAR HGB CONC 32.9 g/dl (33.0-37.0); MEAN PLATELET VOLUME 11.5 fl (9.6-12.3); MONO # 0.7 10*3/uL (0.1-1.0); NEUT # 3.8 10*3/uL (2.3-7.9); NEUT % 67.7 % (47.0-73.0); PLATELET COUNT AUTOMATED 60 10*3/uL (130-400); RED BLOOD COUNT 3.15 10*6/uL (4.10-5.10); RED CELL DISTRI WIDTH 16.8 % (0-14.5); WHITE BLOOD COUNT 5.6 10*3/uL (4.8-10.8)
[2018-04-10 08:00] VITALS: BP 124/52
[2018-04-10 12:00] VITALS: BP 145/59
[2018-04-10 16:00] VITALS: BP 158/74
[2018-04-10 20:00] VITALS: BP 150/61
[2018-04-11] VITALS: BP 150/55
[2018-04-11 05:52] LABS: BASO % 0.1 % (0.0-1.0); EOS # 0.2 10*3/uL (0.0-0.4); EOS % 2.4 % (1.0-4.0); HEMATOCRIT 28.4 % (37.0-47.0); LYMPH # 1.1 10*3/uL (1.3-4.4); LYMPH % 14.7 % (27.0-41.0); MEAN CELL VOLUME 88.8 fl (81.0-99.0); MEAN CORPUSCULAR HGB 28.1 pg (27.0-31.0); MEAN CORPUSCULAR HGB CONC 31.7 g/dl (33.0-37.0); MEAN PLATELET VOLUME 11.2 fl (9.6-12.3); MONO % 13.6 % (3.0-9.0); NEUT # 4.9 10*3/uL (2.3-7.9); NEUT % 68.1 % (47.0-73.0); PLATELET COUNT AUTOMATED 65 10*3/uL (130-400); RED CELL DISTRI WIDTH 17.2 % (0-14.5); WHITE BLOOD COUNT 7.1 10*3/uL (4.8-10.8)
[2018-04-11 06:20] LABS: ALBUMIN 2.3 gm/dl (3.1-4.5); CREATININE 1.26 mg/dL (0.55-1.02); POTASSIUM 3.5 mmol/L (3.5-5.1); TOTAL PROTEIN 6.4 gm/dL (6.4-8.2)
[2018-04-11 08:00] VITALS: BP 145/60
[2018-04-11 12:00] VITALS: BP 129/68
[2018-04-11 16:00] VITALS: BP 152/62
[2018-04-11 20:00] VITALS: BP 130/57
[2018-04-12] VITALS: BP 108/51
[2018-04-12 08:00] VITALS: BP 123/49
[2018-04-12 12:00] VITALS: BP 131/84
[2018-04-12 16:00] VITALS: BP 135/49
[2018-04-12 20:00] VITALS: BP 125/50
[2018-04-13] VITALS: BP 121/61
[2018-04-13 06:08] LABS: HEMATOCRIT 28.4 % (37.0-47.0); HEMOGLOBIN 9.1 g/dl (12.0-16.0); MEAN CELL VOLUME 90.2 fl (81.0-99.0); MEAN CORPUSCULAR HGB 28.9 pg (27.0-31.0); MEAN PLATELET VOLUME 12.4 fl (9.6-12.3); NUCLEATED RED BLOOD CELL 0.3 % (0.0-0.0); RED BLOOD COUNT 3.15 10*6/uL (4.10-5.10); RED CELL DISTRI WIDTH 17.1 % (0-14.5); WHITE BLOOD COUNT 6.1 10*3/uL (4.8-10.8)
[2018-04-13 06:15] LABS: PLATELET COUNT AUTOMATED 46 10*3/uL (130-400)
[2018-04-13 06:28] LABS: CREATININE 1.27 mg/dL (0.55-1.02); POTASSIUM 3.9 mmol/L (3.5-5.1)
[2018-04-13 06:59] LABS: BASOPHILS 1 % (0-1); PLATELET SUFFICIENCY LOW (NORMAL); POLYCHROMASIA SLIGHT; TOTAL CELLS COUNTED 100 #CELLS
[2018-04-13 08:00] VITALS: BP 130/80
[2018-04-13 12:00] VITALS: BP 141/53
[2018-04-13 16:00] VITALS: BP 130/50
[2018-04-13 20:00] VITALS: BP 135/75
[2018-04-14] VITALS: BP 114/51
[2018-04-14 07:00] LABS: BASO % 0.3 % (0.0-1.0); EOS # 0.2 10*3/uL (0.0-0.4); EOS % 2.8 % (1.0-4.0); HEMATOCRIT 31.2 % (37.0-47.0); HEMOGLOBIN 9.9 g/dl (12.0-16.0); LYMPH # 1.2 10*3/uL (1.3-4.4); LYMPH % 16.2 % (27.0-41.0); MEAN CELL VOLUME 90.7 fl (81.0-99.0); MEAN CORPUSCULAR HGB 28.8 pg (27.0-31.0); MEAN CORPUSCULAR HGB CONC 31.7 g/dl (33.0-37.0); MEAN PLATELET VOLUME 12.8 fl (9.6-12.3); MONO # 0.8 10*3/uL (0.1-1.0); MONO % 10.9 % (3.0-9.0); NEUT % 68.7 % (47.0-73.0); RED BLOOD COUNT 3.44 10*6/uL (4.10-5.10); RED CELL DISTRI WIDTH 17.2 % (0-14.5); WHITE BLOOD COUNT 7.2 10*3/uL (4.8-10.8)
[2018-04-14 07:15] LABS: PLATELET COUNT AUTOMATED 62 10*3/uL (130-400)
[2018-04-14 08:00] VITALS: BP 158/57
[2018-04-14 10:49] LABS: BUN 20 mg/dl (7-24); CHLORIDE 96 mmol/L (98-107); CREATININE 1.09 mg/dL (0.55-1.02); POTASSIUM 3.4 mmol/L (3.5-5.1); SODIUM 132 mmol/L (136-145)
[2018-04-14 12:00] VITALS: BP 144/71
[2018-04-14] MEDS ORDERED: LEVAQUIN500 M2 PO (12:31)
[2018-04-14 16:00] VITALS: BP 126/60
[2018-04-14] MEDS ORDERED: Carafate1 GM/10 ML PO (16:19)
== END 2018-04-14 20:04 | disposition other institution (70) | DRG 377 ==
LOC: ED 15:48 → 4E 17:47 → EDHOLD 17:47 → ICCU 17:47 → 4E 04-10 18:09
PROVIDERS: Emergency Medicine; Family Medicine; Internal Medicine; Internal Medicine Gastroenterology
PROC: 30233N1 Transfusion of Nonautologous Red Blood Cells into Peripheral Vein, Percutaneous Approach (ICD-10-PCS; 2018-04-07)
PROC: 0W3P8ZZ Control Bleeding in Gastrointestinal Tract, Via Natural or Artificial Opening Endoscopic (ICD-10-PCS; principal; 2018-04-09)
PROC: 3E0G8GC Introduction of Other Therapeutic Substance into Upper GI, Via Natural or Artificial Opening Endoscopic (ICD-10-PCS; 2018-04-09)
DX: K92.2 Gastrointestinal hemorrhage, unspecified (principal); N17.0 Acute kidney failure with tubular necrosis; J81.0 Acute pulmonary edema; I50.23 Acute on chronic systolic (congestive) heart failure; L89.152 Pressure ulcer of sacral region, stage 2; E43 Unspecified severe protein-calorie malnutrition; J18.9 Pneumonia, unspecified organism; L89.613 Pressure ulcer of right heel, stage 3; I25.810 Atherosclerosis of coronary artery bypass graft(s) without angina pectoris; E87.1 Hypo-osmolality and hyponatremia; N39.0 Urinary tract infection, site not specified; I13.0 Hypertensive heart and chronic kidney disease with heart failure and stage 1 through stage 4 chronic kidney disease, or unspecified chronic kidney disease; L97.429 Non-pressure chronic ulcer of left heel and midfoot with unspecified severity; L89.311 Pressure ulcer of right buttock, stage 1; L89.321 Pressure ulcer of left buttock, stage 1; I95.9 Hypotension, unspecified; D69.6 Thrombocytopenia, unspecified; E11.65 Type 2 diabetes mellitus with hyperglycemia; E66.01 Morbid (severe) obesity due to excess calories; D64.9 Anemia, unspecified; R00.1 Bradycardia, unspecified; S31.809A Unspecified open wound of unspecified buttock, initial encounter; J42 Unspecified chronic bronchitis; E78.5 Hyperlipidemia, unspecified; B19.20 Unspecified viral hepatitis C without hepatic coma; F03.90 Unspecified dementia, unspecified severity, without behavioral disturbance, psychotic disturbance, mood disturbance, and anxiety; N18.3 Chronic kidney disease, stage 3 (moderate); E83.42 Hypomagnesemia; R09.89 Other specified symptoms and signs involving the circulatory and respiratory systems; E11.51 Type 2 diabetes mellitus with diabetic peripheral angiopathy without gangrene; E11.40 Type 2 diabetes mellitus with diabetic neuropathy, unspecified; E11.22 Type 2 diabetes mellitus with diabetic chronic kidney disease; Y95 Nosocomial condition; M81.0 Age-related osteoporosis without current pathological fracture; I25.5 Ischemic cardiomyopathy; E11.621 Type 2 diabetes mellitus with foot ulcer; Z79.899 Other long term (current) drug therapy; Z90.710 Acquired absence of both cervix and uterus; Z90.49 Acquired absence of other specified parts of digestive tract; Z87.891 Personal history of nicotine dependence; Z82.49 Family history of ischemic heart disease and other diseases of the circulatory system; Z82.3 Family history of stroke; Z79.4 Long term (current) use of insulin; Z95.810 Presence of automatic (implantable) cardiac defibrillator; I25.2 Old myocardial infarction; Z95.1 Presence of aortocoronary bypass graft; Z84.1 Family history of disorders of kidney and ureter; Z84.89 Family history of other specified conditions; Z80.1 Family history of malignant neoplasm of trachea, bronchus and lung; Z79.82 Long term (current) use of aspirin; Z68.37 Body mass index [BMI] 37.0-37.9, adult